=== PATIENT | male | born 1960 | race Hispanic/Latino ===

== ENCOUNTER 2019-08-22 06:42 | Inpatient (IN) | payer OTHER ==
[2019-08-22] MEDS ORDERED: NA CHLORIDE 0.9% 1,000 ML ONE (07:24)
[2019-08-22 07:33] LABS: Absolute Lymphocytes (CBC) 0.6 K/uL (0.7-4.9); Basophils % 0.4 % (0-1.3); Hematocrit 40.2 % (39.6-49.0); Lymphocytes % 8.4 % (15.3-44.8); MPV 8.7 fL (7.6-11.3); Protime INR 1.06; RBC Red Blood Cell Count 4.57 M/uL (4.33-5.43)
[2019-08-22 07:51] LABS: Albumin 3.1 g/dL (3.4-5.0); Bilirubin Direct 0.3 mg/dL (0-0.2); Bilirubin Total 1.1 mg/dL (0.2-1.0); Magnesium 2.6 mg/dL (1.8-2.4); Potassium 3.7 mmol/L (3.5-5.1); Protein, Total 6.8 g/dL (6.4-8.2); Troponin (Emerg Dept Use Only) 0.27 ng/mL (0.0-0.045)
--- NOTE | 2019-08-22 07:53 | RAD REPORT ---
EXAM DESCRIPTION: CT - Head Brain Wo Cont - 08/22/2019 7:34 am CLINICAL HISTORY: Headache status post fall. Head injury COMPARISON: 2014 TECHNIQUE: Computed axial tomography of the head was obtained. IV contrast was not requested. All CT scans are performed using dose optimization technique as appropriate and may include automated exposure control or mA/KV adjustment according to patient size. FINDINGS: An intracranial bleed is not seen . The ventricles are normal in caliber. No extra-axial fluid collection is noted. Fluid within the sinuses/ mastoids is not seen. IMPRESSION: No acute intracranial abnormality is seen. If patient's symptoms persist MRI of the bra in would be recommended.
--- NOTE | 2019-08-22 08:03 | RAD REPORT ---
EXAM DESCRIPTION: RAD - Hip Left 2 View - 08/22/2019 7:57 am CLINICAL HISTORY: Left hip pain status post injury FINDINGS: No fracture or dislocation is seen. The bones are osteoporotic. Mild osteoarthritis involves left hip If patient continues to have symptoms to suggest an occult fracture then MRI would be recommended
--- NOTE | 2019-08-22 08:03 | RAD REPORT ---
EXAM DESCRIPTION: Diego Single View08/22/2019 7:57 am CLINICAL HISTORY: Chest pain COMPARISON: 2014 FINDINGS: The lungs appear clear of acute infiltrate. The heart is normal size. Patient is in a poo r degree of inspiration IMPRESSION: No acute abnormalities displayed
--- NOTE | 2019-08-22 08:09 | RAD REPORT ---
EXAM DESCRIPTION: RAD - Knee Left 3 View - 08/22/2019 8:00 am CLINICAL HISTORY: Left knee pain status post injury FINDINGS: No acute fracture or dislocation is seen. Small bony density superior to the patella proba randy is chronic A large joint effusion is not seen Osteoporosis Marked osteoarthritis involves the medial compartment If the patient continues have symptoms to suggest an occult fracture, ligamentous or meniscal injury MRI would be recommended
--- NOTE | 2019-08-22 08:31 | ER ---
Nurse's Notes [facility] Name: Valerio Haney Sr Age: 59 yrs Sex: Male : 1960 Arrival Date: 08/22/2019 Time: 06:41 Bed 6 Private MD: Diagnosis: Rhabdomyolysis;Fall from bed;Pain in left hip;Pain in left knee Presentation: 08/21 06:41 Chief complaint: EMS states: pt called for having pain after a fall this morning, also sg reports having high blood sugar but not being compliant with his diabetes medication. Care prior to arrival: Glucose check: 386. Mechanism of Injury: Fall from standing position. Trauma event details: Injury occurred in the [facility], Injury occurred: at home. Injury occurred: August 22, 2019. 06:41 Acuity: DEWAYNE 3 06:41 Method Of Arrival: EMS: [facility] 06:48 Chief complaint: EMS states: "The pt reported falling out of bed this morning. he has jd3 been reporting generalized weakness over the last 3 days. he is reporting left leg and left hip pain. he denies any injury to his head.". Coronavirus screen: Proceed with normal triage. Ebola Screen: Patient negative for fever greater than or equal to 101.5 degrees Fahrenheit, and additional compatible Ebola Virus Disease symptoms. Initial Sepsis Screen: Does the patient meet any 2 criteria? No. Patient's initial sepsis screen is negative. Does the patient have a suspected source of infection? No. Patient's initial sepsis screen is negative. Risk Assessment: Do you want to hurt yourself or someone else? Patient reports no desire to harm self or others. Onset of symptoms was August 22, 2019. Triage Assessment: 07:00 General: Appears in no apparent distress. uncomfortable, Behavior is cooperative, bp appropriate for age, anxious. Pain: Complains of pain in left hip. EENT: No deficits noted. Neuro: Level of Consciousness is awake, alert, obeys commands, Oriented to person, place, time, situation, Appropriate for age. Cardiovascular: Rhythm is sinus rhythm. Respiratory: No deficits noted. GI: No signs and/or symptoms were reported involving the gastrointestinal system. : No signs and/or symptoms were reported regarding the genitourinary system. Derm: No signs and/or symptoms reported regarding the dermatologic system. Musculoskeletal: Reports pain in left hip. Trauma Activation: Not Applicable Physician: ED Physician; Name: ; Notified At: ; Arrived At: Physician: General Surgeon; Name: ; Notified At: ; Arrived At: Physician: Radiology; Name: ; Notified At: ; Arrived At: Physician: Respiratory; Name: ; Notified At: ; Arrived At: Physician: Lab; Name: ; Notified At: ; Arrived At: Historical: - Allergies: 06:47 No Known Allergies; sg - Home Meds: 06:47 divalproex oral oral [Active]; [place] Carbonate Oral [Active]; Primidone Oral sg [Active]; Risperdal Oral [Active]; doxepin Oral [Active]; - PMHx: 06:50 Diabetes - NIDDM; jd3 - PSHx: 06:47 None; sg - Immunization history:: Adult Immunizations up to date. - Immunization history: Last tetanus immunization: unknown. - Social history:: Smoking status: Patient denies any tobacco usage or history of. Screenin:51 Abuse screen: Denies threats or abuse. Nutritional screening: No deficits noted. jd3 Tuberculosis screening: No symptoms or risk factors identified. Fall Risk Fall in past 12 months (25 points). Gait- Weak (10 pts.). Mental Status- Oriented to own ability (0 pts). Total Barreto Fall Scale indicates Low Risk Score (25-44 pts). Fall prevention measures have been instituted. Side Rails Up X 2 Placed close to Nursing Station Frequent Obs/Assesments occuring. Assessment: 06:52 General: Appears in no apparent distress. uncomfortable, Behavior is calm, cooperative, jd3 appropriate for age. Pain: Complains of pain in left hip and left leg Quality of pain is described as aching, tender. Neuro: Level of Consciousness is awake, alert, obeys commands, Oriented to person, place, time, situation. Cardiovascular: Denies chest pain, Capillary refill < 3 seconds Patient's skin is warm and dry. Respiratory: Airway is patent Respiratory effort is even, unlabored, Respiratory pattern is regular, symmetrical, Denies cough, shortness of breath. GI: No signs and/or symptoms were reported involving the gastrointestinal system. Patient currently denies constipation, diarrhea, nausea, vomiting. : No signs and/or symptoms were reported regarding the genitourinary system. EENT: No signs and/or symptoms were reported regarding the EENT system. Derm: Skin is intact, Skin is dry, Skin is normal, Skin temperature is warm. Musculoskeletal: Circulation, motion, and sensation intact. Range of motion: limited in left leg. 07:20 General: Appears uncomfortable, Behavior is calm, cooperative. Pain: Complains of pain rb1 in left leg and left hip and left knee Quality of pain is described as aching. Neuro: Level of Consciousness is awake, alert, obeys commands, Oriented to person, place, time, situation. Cardiovascular: Capillary refill < 3 seconds. Respiratory: Airway is patent Respiratory effort is even, unlabored, Respiratory pattern is regular, symmetrical. Derm: Skin is pink, warm \\T\\ dry. A scabbed abrasion noted to the left knee, pt. reports it happened yesterday. Musculoskeletal: Range of motion: limited in left leg Swelling present in right foot and left foot. 07:27 Reassessment: Pt. went to X-ray. rb1 07:58 Reassessment: PT RETURNED FROM RAD. bp Vital Signs: 06:50 BP 139 / 82; Pulse 85; Resp 17 S; Temp 97.4(TE); Pulse Ox 100% on R/A; Weight 90.72 kg jd3 (R); Height 5 ft. 4 in. (162.56 cm) (R); Pain 9/10; 07:58 BP 115 / 64; Pulse 87; Resp 14; Pulse Ox 98% ; bp 06:50 Body Mass Index 34.33 (90.72 kg, 162.56 cm) jd3 ED Course: 06:41 Patient arrived in ED. sg 06:42 Salazar Rowland NP is PHCP. pm1 06:42 Vianca Kulkarni MD is Attending Physician. pm1 06:43 Triage completed. sg 06:47 Arm band placed on. sg 06:52 Patient has correct armband on for positive identification. Placed in gown. Bed in low jd3 position. Call light in reach. Side rails up X2. Pulse ox on. NIBP on. 07:05 Inserted saline lock: 20 gauge in right wrist, using aseptic technique. Blood collected.ds4 07:07 EKG done, by ED staff, reviewed by Salazar Rowland NP. jd3 07:12 Basic Metabolic Panel Sent. ds4 07:12 NT PRO-BNP Sent. ds4 07:12 CBC with Diff Sent. ds4 07:12 Troponin (emerg Dept Use Only) Sent. ds4 07:12 PT-INR Sent. ds4 07:12 Magnesium Sent. ds4 07:12 LFT's Sent. ds4 07:12 CK Sent. ds4 07:20 NEURO CHECK AND INTERPRET [place]URK[place] SPEAKING ONLY. [facility] 07:22 Georges Arrington, RN is Primary Nurse. bp 07:34 CT Head Brain wo Cont In Process Unspecified. EDMS 07:57 Hip Left 2 View XRAY In Process Unspecified. EDMS 07:57 XRAY Chest (1 view) In Process Unspecified. EDMS 08:00 Knee Left 3 View XRAY In Process Unspecified. EDMS 08:30 Gavin Jacobson MD is Hospitalizing Provider. pm1 10:19 Patient admitted, IV remains in place. bp Administered Medications: 07:19 Drug: NS 0.9% 1000 ml Route: IV; Rate: 1000 ml; Site: right forearm; rb1 08:46 Follow up: IV Status: Completed infusion; IV Intake: 1000ml bp 08:40 Not Given (Physician Discretion): NS 0.9% 1000 ml IV at 1000 ml once pm1 08:40 CANCELLED (Physician Discretion): NS 0.9% 1000 ml IV at 100 ml/hr once pm1 08:46 Drug: NS 0.9% with KCl 20 mEq/L 1000 ml Route: IV; Rate: 150 ml/hr; Site: right forearm;bp 10:58 Follow up: IV Status: Infusion continued upon admission bp Intake: 08:46 IV: 1000ml; Total: 1000ml. bp Outcome: 08:30 Decision to Hospitalize by Provider. pm1 10:49 Admitted to Med/surg accompanied by tech, family with patient, via stretcher, room 202, bp Report called to TG LERMA 10:49 Condition: stable 10:49 Instructed on the need for admit. 10:58 Patient left the ED. bp Signatures: Dispatcher [employer] EDMS Sukh Link RN RN sg Swanson, Donovan ds4 Lynnette Owens RN RN rb1 Salazar Rowland, HYDRANT SETTER HYDRANT SETTER pm1 Mendy Carroll 5 Glynn Rosenberg RN RN jGeorges Borjas, RN RN bp Corrections: (The following items were deleted from the chart) 06:52 06:51 Fall Risk Ambulatory Aid- None/Bed Rest/Nurse Assist (0 pts). Gait- Normal/Bed jd3 Rest/Wheelchair (0 pts) Mental Status- Oriented to own ability (0 pts). Total Barreto Fall Scale indicates No Risk (0-24 pts). jd3 06:54 06:48 Chief complaint: EMS states: "The pt reported falling out of bed this morning. he jd3 has been reporting generalized weakness over the last 3 days. he is reporting left leg and left hip pain." jd3 07:29 07:20 Musculoskeletal: Range of motion: limited in left leg rb1 rb1
--- NOTE | 2019-08-22 08:31 | EDPHYS ---
Physician Documentation [facility] Name: Valerio Haney Sr Age: 59 yrs Sex: Male : 1960 Arrival Date: 08/22/2019 Time: 06:41 Bed 6 Private MD: ED Physician Vianca Kulkarni HPI: 08/21 07:35 This 59 yrs old Male presents to ER via EMS with complaints of Fall Injury, pm1 High Blood Sugar. 07:35 Details of fall: The patient fell from a height, Bed, and struck. Onset: The pm1 symptoms/episode began/occurred last night. Associated injuries: The patient sustained left hip and left knee. The patient has not experienced similar symptoms in the past. The patient has not recently seen a physician, and does not have an established primary care provider. Patient reports generalized weakness and dizziness for the past 3 days. He fell out of bed last night resulting in pain to left knee and left hip. He was not able to get up and was on the floor. His inability to get up was due to the left hip pain. No headache, LOC, head injury, or neck pain. No chest pain or shortness of breath . 08:32 Patient does not take medications for DM. Does not take metformin. Does take Ozone pm1 300 mg and Depakote 500 mg. Reports that he last took the medications 2 days ago because he actually fell two days ago and has not been able to get up. Historical: - Allergies: 06:47 No Known Allergies; sg - Home Meds: 06:47 divalproex oral oral [Active]; [place] Carbonate Oral [Active]; Primidone Oral sg [Active]; Risperdal Oral [Active]; doxepin Oral [Active]; - PMHx: 06:50 Diabetes - NIDDM; jd3 - PSHx: 06:47 None; sg - Immunization history:: Adult Immunizations up to date. - Immunization history: Last tetanus immunization: unknown. - Social history:: Smoking status: Patient denies any tobacco usage or history of. ROS: 07:35 Constitutional: Negative for fever, chills, and weight loss, Eyes: Negative for injury, pm1 pain, redness, and discharge, ENT: Negative for injury, pain, and discharge, Neck: Negative for injury, pain, and swelling, Cardiovascular: Negative for chest pain, palpitations, and edema, Respiratory: Negative for shortness of breath, cough, wheezing, and pleuritic chest pain, Abdomen/GI: Negative for abdominal pain, nausea, vomiting, diarrhea, and constipation, Back: Negative for injury and pain, Skin: Negative for injury, rash, and discoloration. 07:35 MS/extremity: Positive for pain, of the left knee and left hip. 07:35 Neuro: Positive for dizziness, Generalized weakness. Exam: 07:35 Head/Face: Normocephalic, atraumatic. Eyes: Pupils equal round and reactive to light, pm1 extra-ocular motions intact. Lids and lashes normal. Conjunctiva and sclera are non-icteric and not injected. Cornea within normal limits. Periorbital areas with no swelling, redness, or edema. ENT: Nares patent. No nasal discharge, no septal abnormalities noted. Tympanic membranes are normal and external auditory canals are clear. Oropharynx with no redness, swelling, or masses, exudates, or evidence of obstruction, uvula midline. Mucous membranes moist. Neck: Trachea midline, no thyromegaly or masses palpated, and no cervical lymphadenopathy. Supple, full range of motion without nuchal rigidity, or vertebral point tenderness. No Meningismus. Chest/axilla: Normal chest wall appearance and motion. Nontender with no deformity. No lesions are appreciated. 07:35 Back: No spinal tenderness. No costovertebral tenderness. Full range of motion. 07:35 Constitutional: The patient appears in no acute distress, alert, awake, comfortable, non-diaphoretic, non-toxic, well developed, well hydrated, smells of urine, unkempt, urine soaked pants 07:35 Cardiovascular: Exam negative for acute changes, Rate: normal, Rhythm: regular, Pulses: no pulse deficits are appreciated. 07:35 Respiratory: Exam negative for acute changes, respiratory distress, shortness of breath. 07:35 Abdomen/GI: Inspection: abdomen appears normal, Palpation: abdomen is soft and non-tender, in all quadrants, mass, is not appreciated. 07:35 Musculoskeletal/extremity: Extremities: grossly normal except: noted in the left knee and left hip: tenderness, Circulation is intact in all extremities. Sensation intact. 07:35 Skin: Appearance: normal except for affected area, injury, abrasion(s), small abrasion noted, of the right knee and left knee. 07:35 Neuro: Orientation: is normal, Mentation: is normal, Cerebellar function: normal finger to nose testing, Sensation: is normal, no obvious gross deficits, Abnormal movements: intention tremor, located in the right arm and left arm. Vital Signs: 06:50 BP 139 / 82; Pulse 85; Resp 17 S; Temp 97.4(TE); Pulse Ox 100% on R/A; Weight 90.72 kg jd3 (R); Height 5 ft. 4 in. (162.56 cm) (R); Pain 9/10; 07:58 BP 115 / 64; Pulse 87; Resp 14; Pulse Ox 98% ; bp 06:50 Body Mass Index 34.33 (90.72 kg, 162.56 cm) jd3 MDM: 06:42 Patient medically screened. pm1 07:44 Data reviewed: vital signs. Data interpreted: Pulse oximetry: on room air is 100 %. pm1 Interpretation: normal. 08:29 Counseling: I had a detailed discussion with the patient and/or guardian regarding: the pm1 historical points, exam findings, and any diagnostic results supporting the discharge/admit diagnosis, lab results, the need for further work-up and treatment in the hospital. 08:41 Physician consultation: Gavin Jacobson MD was called at 08:41, was contacted at 08:41, pm1 regarding admission, patient's condition, and will see patient would like medications started, Patient's V/S so no additional bolus of NS required. Give the patient NS with 20 meq of potassium at 150 ml/hr . 08/21 06:52 Order name: NT PRO-BNP; Complete Time: 08:10 pm08/21 06:52 Order name: Basic Metabolic Panel; Complete Time: 08:10 pm08/21 06:52 Order name: CBC with Diff; Complete Time: 07:47 pm1 08/21 06:52 Order name: LFT's; Complete Time: 08:10 pm1 08/21 06:52 Order name: Magnesium; Complete Time: 08:10 pm1 08/21 06:52 Order name: PT-INR; Complete Time: 07:47 pm1 08/21 06:52 Order name: Troponin (emerg Dept Use Only); Complete Time: 08:10 pm1 08/21 06:59 Order name: Glucose, Ancillary Testing; Complete Time: 07:03 EDMS 08/21 07:03 Order name: CK; Complete Time: 08:20 pm08/21 08:28 Order name: Ozone; Complete Time: 09:23 pm1 08/21 08:31 Order name: Valproic Acid (depakote); Complete Time: 09:23 pm1 08/21 08:46 Order name: ETOH Level; Complete Time: 09:23 bp 08/21 10:00 Order name: Thyroid Stimulating Hormone EDMS 08/21 10:00 Order name: UR CREAT EDMS 08/21 06:52 Order name: Hip Left 2 View XRAY; Complete Time: 08:10 pm1 08/21 06:52 Order name: XRAY Chest (1 view); Complete Time: 08:10 pm1 08/21 07:08 Order name: CT Head Brain wo Cont; Complete Time: 08:00 pm1 08/21 07:14 Order name: Knee Left 3 View XRAY; Complete Time: 08:10 pm1 08/21 10:00 Order name: UR SODIUM EDMS 08/21 10:00 Order name: Comprehensive Metabolic Panel EDMS 08/21 10:00 Order name: Comprehensive Metabolic Panel EDMS 08/21 10:00 Order name: Creatine Phosphokinase EDMS 08/21 10:00 Order name: Creatine Phosphokinase EDMS 08/21 10:00 Order name: Creatine Phosphokinase EDMS 08/21 10:00 Order name: Creatine Phosphokinase EDMS 08/21 10:01 Order name: CORONAVIRUS EDMS 08/21 06:52 Order name: EKG; Complete Time: 06:53 pm08/21 06:52 Order name: Cardiac monitoring; Complete Time: 07:06 pm08/21 06:52 Order name: EKG - Nurse/Tech; Complete Time: 07:06 pm08/21 06:52 Order name: IV Saline Lock; Complete Time: 07:06 pm08/21 06:52 Order name: Labs collected and sent; Complete Time: 07:06 pm08/21 06:52 Order name: O2 Per Protocol; Complete Time: 07:06 pm08/21 06:52 Order name: O2 Sat Monitoring; Complete Time: 07:06 pm08/21 10:00 Order name: CONS Physician Consult EDMS 08/21 10:00 Order name: Physical Therapy Consult EDUT 08/21 10:00 Order name: CONS Pharmacy Consult EDUT 08/21 10:00 Order name: Consistent Carb (ADA) [address] EDUT Administered Medications: 07:19 Drug: NS 0.9% 1000 ml Route: IV; Rate: 1000 ml; Site: right forearm; rb1 08:46 Follow up: IV Status: Completed infusion; IV Intake: 1000ml bp 08:40 Not Given (Physician Discretion): NS 0.9% 1000 ml IV at 1000 ml once pm1 08:40 CANCELLED (Physician Discretion): NS 0.9% 1000 ml IV at 100 ml/hr once pm1 08:46 Drug: NS 0.9% with KCl 20 mEq/L 1000 ml Route: IV; Rate: 150 ml/hr; Site: right forearm;bp 10:58 Follow up: IV Status: Infusion continued upon admission bp Disposition: 20:20 Co-signature as Attending Physician, Vianca Kulkarni MD. ma2 Disposition: 08/22/19 08:30 Hospitalization ordered by Gavin Jacobson for Inpatient Admission. Preliminary diagnosis are Rhabdomyolysis, Fall from bed, Pain in left hip, Pain in left knee. - Bed requested for Telemetry/MedSurg (Inpatient). - Status is Inpatient Admission. bp - Condition is Stable. - Problem is new. - Symptoms have improved. Signatures: Dispatcher [employer] [facility] Sukh Link RN RN sg Barber, Rebecca, RN RN rb1 Salazar Rowland, LIN COUNTER ATTENDANT pm1 Glynn Rosenberg RN RN jd3 Aguilar, Jose, RN RN ja1 Peltier, Brian, RN RN bp Vianca Kulkarni MD MD ma2 Corrections: (The following items were deleted from the chart) 08:40 08:30 NS 0.9% 1000 ml IV at 100 ml/hr once ordered. pm1 pm1 08:40 08:40 NS 0.9% 1000 ml IV at 100 ml/hr once ordered. pm1 pm1 10:16 08:30 Hospitalization Ordered by Gavin Jacobson MD for Inpatient Admission. Preliminary ja1 diagnosis is Rhabdomyolysis; Fall from bed; Pain in left hip; Pain in left knee. Bed requested for Telemetry/MedSurg (Inpatient). Status is Inpatient Admission. Condition is Stable. Problem is new. Symptoms have improved. pm1 10:58 10:16 08/22/2019 08:30 Hospitalization Ordered by Gavin Jacobson MD for Inpatient bp Admission. Preliminary diagnosis is Rhabdomyolysis; Fall from bed; Pain in left hip; Pain in left knee. Bed requested for Telemetry/MedSurg (Inpatient). Status is Inpatient Admission. Condition is Stable. Problem is new. Symptoms have improved. ja1
[2019-08-22] MEDS ORDERED: NA CHLORIDE 0.9% 0 ML ONE (08:47)
[2019-08-22] MEDS ORDERED: NS KCL 20MEQ 1,000 ML IV ONE (08:51)
[2019-08-22] MEDS ORDERED: ONDANSETRON 4 MG/2 ML VIAL IV PRN (09:54)
[2019-08-22] MEDS ORDERED: HYDRALAZINE HCL 20 MG/ML VIAL IV PRN ×2 (09:56→12:20)
[2019-08-22] MEDS: MORPHINE 2 MG/ML SYR IV PRN (11:31)
[2019-08-22] MEDS ORDERED: GLUCAGON 1 MG/VIAL IM PRN ×2 (12:20→12:56)
[2019-08-22] MEDS ORDERED: ALBUTEROL 2.5 MG/3 ML NEB SOL NEB PRN (12:20)
[2019-08-22] MEDS ORDERED: D50W 25 GM/50 ML SYRINGE/VIAL IV PRN ×2 (12:20→12:56)
--- NOTE | 2019-08-22 12:28 | P.HP ---
Certification for Inpatient Patient admitted to: Inpatient With expected LOS: >2 Midnights Patient will require the following post-hospital care: None Practitioner: I am a practitioner with admitting privileges, knowledge of patient current condition, hospital course, and medical plan of care. Services: Services provided to patient in accordance with Admission requirements found in Title 42 Section 412.3 of the Code of Federal Regulations Patient History Date of Service: 08/22/19 Reason for admission: Fall and weakness History of Present Illness: 59-year-old speaking male with past medical history of HTN, DM-diet controlled since the last 4 years, schizophrenia on lithium since over 7 years admitted after having a fall at home 2 days ago. Patient lives with his son but states he has fallen while getting up from the the bed. He denies any loss of consciousness. He states he was not able to get up due to right-sided pain more around the hip area. He was on the floor for 2 days as he was unable to reach his phone. He was finally able to get hisphone and called the sister who got EMS to getting him to the hospital. He denies any urine or fecal incontinence. He states he has be unable to void since the last 2 days. He admits to recent history of cough with throat itching since last 1 week but denies any nausea or vomiting. He denies any recent pain medication. He denies any recent medication changes. He states he was admitted 6 months ago at [facility] but unsure for what reason. Sister, who regularly patient to appointments follow-up is at the bedside helping with history. Prior to onset of symptoms patient states he was outside his house gardening . He denies any fever but admit to increase fluid intake creatinine Allergies No Known Drug Allergies Allergy (Verified 06/24/14 14:17) Unknown Home Medications: Divalproex Sodium [Divalproex Sodium ER] 500 mg PO BEDTIME 06/24/14 Doxepin HCl [Sinequan] 3 tab PO BEDTIME 06/24/14 [place] Carbonate [Lithotabs *] 300 mg PO BEDTIME 06/24/14 Risperidone [Risperdal] 2 mg PO BEDTIME 06/24/14 allopurinoL [Zyloprim*] 300 mg PO DAILY 06/24/14 Primidone [Mysoline *] 50 mg PO DAILY #30 tab 06/27/14 levoFLOXacin [Levaquin*] 500 mg PO DAILY #10 tab 06/27/14 - Past Medical/Surgical History Has patient received pneumonia vaccine in the past: No Diabetic: Yes -: DM -: SCHIZOPHRENIA Past Surgical History: Patient denies surgical history - Social History Smoking Status: Never smoker Alcohol use: No CD- Drugs: No Caffeine use: Yes Review of Systems 10-point ROS is otherwise unremarkable General: Weakness, Malaise Eyes: Unremarkable Respiratory: Unremarkable Cardiovascular: Unremarkable Gastrointestinal: Unremarkable Genitourinary: Retention Musculoskeletal: Back Pain, Leg Pain Integumentary: Unremarkable Neurological: Weakness, Unremarkable Physical Examination - Vital Signs Temperature: 97.4 F Blood Pressure: 115/64 Pulse: 87 Respirations: 18 Pulse Ox (%): 97 - Physical Exam General: Alert, In no apparent distress, Oriented x3, Cooperative HEENT: Atraumatic, Normocephalic Neck: Supple, No Thyromegaly, JVD distended Respiratory: Normal air movement, Diminished Cardiovascular: Regular rate/rhythm, Normal S1 S2, Edema Gastrointestinal: Normal bowel sounds, Soft and benign, Non-distended, No masses, No rebound Musculoskeletal: No clubbing, Swelling Integumentary: No rashes, No breakdown Neurological: Normal speech, Normal strength at 5/5 x4 extr - Studies Laboratory Data (last 24 hrs) 08/22/19 07:05: PT 12.5, INR 1.06 08/22/19 07:05: WBC 7.7, Hgb 14.2, Hct 40.2, Plt Count 110 L 08/22/19 07:05: Sodium 142, Potassium 3.7, BUN 38 H, Creatinine 2.72 H, Glucose 305 H, Magnesium 2.6 H, Total Bilirubin 1.1 H, AST 501 H*, ALT 83 H, Alkaline Phosphatase 61 Assessment and Plan - Problems (Diagnosis) (1) Rhabdomyolysis Current Visit: Yes Status: Acute (2) ARF (acute renal failure) with tubular necrosis Current Visit: Yes Status: Acute (3) Diabetes mellitus type II, uncontrolled Onset Date: 06/24/14 Current Visit: No Status: Acute (4) Fall Onset Date: 06/24/14 Current Visit: No Status: Acute (5) Urinary retention Onset Date: 06/24/14 Current Visit: No Status: Acute (6) Weakness Onset Date: 06/24/14 Current Visit: No Status: Acute - Advance Directives Does patient have a Living Will: No Does patient have a Durable POA for Healthcare: No Physician Review: Patient Assessed, Agree with Above Assessment and Plan Physician Review Additional Text: # Acute Rhabdomyolysis - due to fall - will start LR - will do bumex given large fluid overload - Nephrology consult - daily CK - replete k and mg prn -obtain TSH -obtain covid testing since recent reported Covid 19 rhabdomyolysis # Fall- obtain PT eval - may be due to noted tremors from anti-psychotic meds # DM -with hyperglycemia -start Levemir 10 unit bid -accuchecks and ISSS # HTN-IV hydralazine prn # Schizophrenia - restart home regime , low lithium noted DVT prop - sc heparin Dispo -possible hospital stay for > 48 hrs
[2019-08-22] MEDS: BUMETANIDE 1 MG/4 ML VIAL IV SCH ×2 (13:07→21:10)
[2019-08-22] MEDS: INSULIN -REGULAR HUMAN 50 UNIT/0.5 ML ML SQ SCH ×3 (14:08→21:10)
[2019-08-22] MEDS: PANTOPRAZOLE 40MG TABLET PO SCH (16:47)
[2019-08-22] MEDS: Ringers Lactate 1,000 ML IV SCH ×2 (16:48→21:59)
[2019-08-22] MEDS: HEPARIN 5000 UNIT/ML 1 ML VIAL SQ SCH (21:10)
[2019-08-22] MEDS: INSULIN GLARGINE 100 UNITS/ML SQ SCH (21:11)
--- NOTE | 2019-08-22 23:22 | P.CNS ---
Date of Consult: 08/22/19 Chief Complaint: Fall and weakness History of Present Illness: Pt is a 59 y/o female with past medical hx of htn, schizophrenia, DM, presenting s/p fall. Pt stated he fell while trying to maneuver and remained on the ground for 2 days. He states his son found him laying on the ground and brought him to the ER. At this time, pt is complianing of thigh pain. Denies any fevers or chills, nausea or vomiting. NO recent recreational drug use, or recent illnesses. Work up in the ED revealed dx of rhabdomylysis and JULIANNA. Renal has been consulted for continued management of JULIANNA. Allergies No Known Drug Allergies Allergy (Verified 06/24/14 14:17) Unknown Home Medications: Divalproex Sodium [Depakote ER] 1 tab PO DAILY 08/22/19 Divalproex Sodium [Depakote ER] 2 tab PO BEDTIME 08/22/19 [place] Carbonate [Lithotabs *] 1 cap PO BEDTIME 08/22/19 risperiDONE [Risperdal] 2 tab PO BEDTIME 08/22/19 - Past Medical/Surgical History Diabetic: Yes -: DM -: SCHIZOPHRENIA - Social History Smoking Status: Current every day smoker Alcohol use: No CD- Drugs: No Caffeine use: Yes Place of Residence: Home Review of Systems General: Weakness, Unremarkable Eyes: Unremarkable ENT: Unremarkable Respiratory: Shortness of Breath Cardiovascular: Edema Gastrointestinal: Unremarkable Genitourinary: Unremarkable Musculoskeletal: Unremarkable Integumentary: Unremarkable Neurological: Seizures Lymphatics: Unremarkable Physical Examination Temp Pulse Resp BP Pulse Ox 97.0 F 79 16 144/70 H 97 08/22/19 20:00 08/22/19 21:10 08/22/19 20:00 08/22/19 21:10 08/22/19 20:00 General: Alert, Oriented x3 HEENT: Atraumatic, Normocephalic, PERRLA Neck: Supple, No Thyromegaly, Without JVD or thyroid abnormality Respiratory: Clear to auscultation bilaterally Cardiovascular: Edema Capillary refill: <2 Seconds Gastrointestinal: Normal bowel sounds, Soft and benign, Non-distended Musculoskeletal: Tenderness Integumentary: No rashes, No significant lesion, No cyanosis Neurological: Normal strength at 5/5 x4 extr, Other (tremors noted) Laboratory Data (last 24 hrs) 08/22/19 07:05: PT 12.5, INR 1.06 08/22/19 07:05: WBC 7.7, Hgb 14.2, Hct 40.2, Plt Count 110 L 08/22/19 07:05: Sodium 142, Potassium 3.7, BUN 38 H, Creatinine 2.72 H, Glucose 305 H, Magnesium 2.6 H, Total Bilirubin 1.1 H, AST 501 H*, ALT 83 H, Alkaline Phosphatase 61 - Problems (1) ARF (acute renal failure) with tubular necrosis Current Visit: Yes Status: Acute (2) Rhabdomyolysis Current Visit: Yes Status: Acute (3) Diabetes mellitus type II, uncontrolled Onset Date: 06/24/14 Current Visit: No Status: Acute (4) Fall Onset Date: 06/24/14 Current Visit: No Status: Acute Conclusions/Impression: Plan Continue IVF, and bumex. if potassium increasing will need to switch IVF to sodium bicarbonate or normal saline Will check phos tommorrow as well. No indication for HD at this time. Strict i/o Avoid nephrotoxins including enzo/arb, nsaids, contrast studies, fleece enemas Renally dose all medications If creatinine unimproved tommorrow morning, will obtain renal ultrasound. Thank you for this interesting consult will continue to follow.
[2019-08-23 06:15] LABS: Absolute Lymphocytes (CBC) 1.3 K/uL (0.7-4.9); Hematocrit 40.4 % (39.6-49.0); Lymphocytes % 17.4 % (15.3-44.8); MPV 8.6 fL (7.6-11.3); RBC Red Blood Cell Count 4.56 M/uL (4.33-5.43)
[2019-08-23 07:03] LABS: ALT/SGPT 99 U/L (12-78); Albumin 2.6 g/dL (3.4-5.0); Alkaline Phosphatase 54 U/L (45-117); BUN Blood Urea Nitrogen 35 mg/dL (7-18); Bicarbonate 23 mmol/L (21-32); Bilirubin Total 0.8 mg/dL (0.2-1.0); Glucose Level 174 mg/dL (74-106); Potassium 3.9 mmol/L (3.5-5.1); Protein, Total 6.3 g/dL (6.4-8.2); Sodium Level 146 mmol/L (136-145)
[2019-08-23 07:05] LABS: AST/SGOT 697 U/L (15-37); Creatine Phosphokinase > 14000 U/L (39-308)
[2019-08-23] MEDS: INSULIN -REGULAR HUMAN 50 UNIT/0.5 ML ML SQ SCH ×4 (07:30→20:45)
[2019-08-23 07:48] LABS: Blood Morphology Comment NOT SEEN (NOT SEEN); Platelet Estimate DECR; Urine White Blood Cell Casts OK
[2019-08-23] MEDS: CEFTRIAXONE/SWI 1gm 1 GM/10 ML SYR IVP SCH (08:52)
[2019-08-23] MEDS: NICOTINE 21 MG/PAT TD SCH (08:53)
[2019-08-23] MEDS: HEPARIN 5000 UNIT/ML 1 ML VIAL SQ SCH ×2 (08:53→20:37)
[2019-08-23] MEDS: BUMETANIDE 1 MG/4 ML VIAL IV SCH ×2 (08:53→20:38)
[2019-08-23] MEDS: INSULIN GLARGINE 100 UNITS/ML SQ SCH ×2 (08:54→20:46)
[2019-08-23] MEDS: MORPHINE 2 MG/ML SYR IV PRN (08:57)
[2019-08-23] MEDS: PANTOPRAZOLE 40MG TABLET PO SCH ×2 (08:57→16:27)
--- NOTE | 2019-08-23 12:03 | P.PN ---
Subjective Date of Service: 08/23/19 Chief Complaint: Fall and weakness Subjective: No new changes, Improving <Hammad Sellers - Last Filed: 08/23/19 11:56> Date of Service: 08/23/19 <Tucker Quintana - Last Filed: 08/23/19 18:18> Review of Systems General: Unremarkable Eyes: Unremarkable ENT: Unremarkable Respiratory: Unremarkable Cardiovascular: Unremarkable Gastrointestinal: Unremarkable Genitourinary: As per HPI Musculoskeletal: As per HPI Integumentary: Other (Abrasion to left knee) Neurological: Unremarkable Lymphatics: Unremarkable <Hammad Sellers - Last Filed: 08/23/19 11:56> Physical Examination - Vital Signs Temperature: 97.8 F Blood Pressure: 135/70 Pulse: 89 Respirations: 18 Pulse Ox (%): 96 - Physical Exam General: Alert, In no apparent distress, Oriented x3 HEENT: Atraumatic, Normocephalic Neck: Supple Respiratory: Clear to auscultation bilaterally, Normal air movement Cardiovascular: No edema, Regular rate/rhythm, Normal S1 S2 Capillary refill: <2 Seconds Gastrointestinal: Normal bowel sounds Musculoskeletal: No erythema, No warmth Integumentary: No significant lesion Neurological: Normal speech, Normal tone, Sensation intact <Hammad Sellers - Last Filed: 08/23/19 11:56> Assessment & Plan Discharge Plan: Home Plan to discharge in: 48 Hours Physician Review: Patient Assessed, Agree with Above Assessment and Plan Physician Review Additional Text: Assessment Acute renal failure with tubular necrosis secondary to rhabdomyolysis Elevated aminotransferase levels Mechanical fall Diabetes mellitus type 2, uncontrolled Hypertension Schizophrenia Left knee abrasion and effusion Plan Acute renal failure with tubular necrosis secondary to rhabdomyolysis: Nephrology has been consulted on this case, continue with nephrology recommendations. Will continue with IV fluids and Lasix. Will assess patient's phosphorus level tomorrow. Will continue with strict intake and output. Appreciate further input from nephrology. Elevated aminotransferase levels: Will obtain hepatitis panel and HIV testing, also half ordered ultrasound. Will follow up on these test. Will recheck labs tomorrow. Mechanical fall: Fall precautions in place, patient will continue to work with physical therapy. Patient is amendable [facility]. Diabetes mellitus type 2, uncontrolled: A.c. HS Accu-Cheks and insulin sliding scale therapy have been initiated. Will obtain A1c with morning labs to determine patient's glycemic control. Will adjust patient's home medications as needed. Hypertension: Will obtain and continue patient's home medications, in the mean time patient can be given hydralazine p.r.n.. Schizophrenia: Will obtain and continue patient's home medications Left knee abrasion and effusion: Will have Bactroban apply to affected area and continue to monitor patient's me. Patient also work with physical therapy. Critical Care: No Time Spent Managing Pts Care (In Minutes): 55 <Hammad Sellers - Last Filed: 08/23/19 11:56> Physician Review Additional Text: Agree with plan of care. Case discussed at length with nurse practitioner. Also seen and examined. Continue to work with physical therapy. Continue IV fluids. Will monitor closely. Anticipate discharge in the next 48-72 hr. <Tucker Quintana - Last Filed: 08/23/19 18:18>
[2019-08-23] MEDS: Ringers Lactate 1,000 ML IV SCH (14:27)
--- NOTE | 2019-08-23 14:53 | RAD REPORT ---
EXAM DESCRIPTION: US - Liver Only - 08/23/2019 2:18 pm CLINICAL HISTORY: Elevated aminotrasferase levels COMPARISON: No comparisons TECHNIQUE: Sonographic evaluation of the right upper quadrant was performed as a dedicated liver ult rasound study. FINDINGS: Liver is 16 cm in maximum dimension. No nodularity to the capsule or focal parenchymal les ion. Parenchymal echogenicity is increased somewhat which can be seen with fatty infiltration. No por jacquelyn vein abnormality seen. Spleen is 14 cm with no focal splenic finding. No ascites of the upper abdomen. IMPRESSION: Probable fatty infiltration of a normal size liver. No focal liver lesion.
[2019-08-23] MEDS ORDERED: NACHLORIDE 0.45% 1,000 ML IV SCH ×2 (17:00→18:45)
[2019-08-23] MEDS: NACHLORIDE 0.45% 1,000 ML IV SCH (19:00)
[2019-08-23] MEDS: MUPIROCIN 2% OINT 22GM TUBE TOP SCH (20:36)
--- NOTE | 2019-08-24 00:12 | P.PN ---
Subjective Date of Service: 08/24/19 Chief Complaint: Fall and weakness Subjective: Doing well (Eating and drinking. No further complaints at this time) Review of Systems General: Unremarkable Eyes: Unremarkable Respiratory: Unremarkable Cardiovascular: Edema Gastrointestinal: Unremarkable Physical Examination - Vital Signs Temperature: 98.9 F Blood Pressure: 140/79 Pulse: 108 Respirations: 18 Pulse Ox (%): 94 - Physical Exam General: Alert, In no apparent distress, Oriented x3 HEENT: Atraumatic, Normocephalic, PERRLA Neck: Supple, JVD not distended Respiratory: Clear to auscultation bilaterally, Normal air movement Cardiovascular: Edema Capillary refill: <2 Seconds Gastrointestinal: Normal bowel sounds, No tenderness Integumentary: No rashes Assessment And Plan - Current Problems (Diagnosis) (1) ARF (acute renal failure) with tubular necrosis Current Visit: Yes Status: Acute (2) Rhabdomyolysis Current Visit: Yes Status: Acute (3) Diabetes mellitus type II, uncontrolled Onset Date: 06/24/14 Current Visit: No Status: Acute (4) Fall Onset Date: 06/24/14 Current Visit: No Status: Acute - Plan JULIANNA on 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
[2019-08-24] MEDS: NACHLORIDE 0.45% 1,000 ML IV SCH ×4 (02:27→21:25)
[2019-08-24 04:36] LABS: Absolute Lymphocytes (CBC) 1.1 K/uL (0.7-4.9); Basophils % 0.6 % (0-1.3); Hematocrit 40.4 % (39.6-49.0); Lymphocytes % 13.8 % (15.3-44.8); MPV 8.9 fL (7.6-11.3); RBC Red Blood Cell Count 4.55 M/uL (4.33-5.43)
[2019-08-24 05:35] LABS: Albumin 2.5 g/dL (3.4-5.0); Bilirubin Total 0.7 mg/dL (0.2-1.0); Protein, Total 6.5 g/dL (6.4-8.2)
[2019-08-24] MEDS: INSULIN -REGULAR HUMAN 50 UNIT/0.5 ML ML SQ SCH ×4 (07:30→21:00)
--- NOTE | 2019-08-24 08:20 | RAD REPORT ---
EXAM DESCRIPTION: US - Renal Ultrasound-Complete - 08/24/2019 7:58 am CLINICAL HISTORY: . Acute renal insufficiency COMPARISON: 2012 FINDINGS: The right kidney measures 13 cm with a normal echotexture. The left kidney was not visualized due to technical factors. The patient was unable to turn on inside . Hydronephrosis is not seen. A Durand catheter is present within a collapsed bladder. IMPRESSION: The right kidney coronal is mildly enlarged. This could be secondary to being edematous. No hydronephrosis is seen. Nonvisualization of the left kidney
[2019-08-24] MEDS: CEFTRIAXONE/SWI 1gm 1 GM/10 ML SYR IVP SCH (09:00)
[2019-08-24] MEDS: NICOTINE 21 MG/PAT TD SCH (09:35)
[2019-08-24] MEDS: PANTOPRAZOLE 40MG TABLET PO SCH ×2 (09:36→17:02)
[2019-08-24] MEDS: BUMETANIDE 1 MG/4 ML VIAL IV SCH ×2 (09:36→21:27)
[2019-08-24] MEDS: INSULIN GLARGINE 100 UNITS/ML SQ SCH ×2 (09:36→21:30)
[2019-08-24] MEDS: HEPARIN 5000 UNIT/ML 1 ML VIAL SQ SCH ×2 (09:37→21:27)
[2019-08-24] MEDS: MUPIROCIN 2% OINT 22GM TUBE TOP SCH ×2 (09:38→21:31)
[2019-08-24] MEDS ORDERED: POTASSIUM CL SA 10 MEQ TAB PO ONE (11:08)
--- NOTE | 2019-08-24 15:55 | P.PN ---
Subjective Date of Service: 08/24/19 Chief Complaint: Fall and weakness Subjective: Improving, Working w/ PT Review of Systems General: Unremarkable Eyes: Unremarkable ENT: Unremarkable Respiratory: Unremarkable Cardiovascular: Unremarkable Gastrointestinal: Unremarkable Genitourinary: Unremarkable Musculoskeletal: As per HPI Integumentary: Unremarkable Neurological: Unremarkable Lymphatics: Unremarkable Physical Examination - Vital Signs Temperature: 99.4 F Blood Pressure: 134/76 Pulse: 95 Respirations: 24 Pulse Ox (%): 93 - Physical Exam General: Alert, In no apparent distress, Oriented x3 HEENT: Atraumatic, Normocephalic Neck: Supple Respiratory: Clear to auscultation bilaterally, Normal air movement Cardiovascular: No edema Capillary refill: <2 Seconds Gastrointestinal: Normal bowel sounds, Soft and benign Musculoskeletal: No erythema, No tenderness, No warmth Integumentary: No erythema, No warmth, No cyanosis Neurological: Normal speech, Normal strength at 5/5 x4 extr, Normal tone, Sensation intact Assessment & Plan Plan to discharge in: 48 Hours - Code Status/Comfort Care Code Status Assessed: No (Patient is full code) Physician Review: Patient Assessed, Agree with Above Assessment and Plan Physician Review Additional Text: Assessment Acute renal failure with tubular necrosis secondary to traumatic rhabdomyolysis Elevated aminotransferase levels Mechanical fall Diabetes mellitus type 2, uncontrolled Hypertension Schizophrenia Left knee abrasion and effusion Plan Acute renal failure with tubular necrosis secondary to rhabdomyolysis: Nephrology has been consulted on this case, continue with nephrology recommendations. Will continue with IV fluids. Patient's creatinine increased from yesterday and during morning labs. Nephrology recommended more aggressive workup. Additional lab has been ordered. Will continue to monitor patient's renal function. Appreciate further input from nephrology at this time. Elevated aminotransferase levels: Awaiting results from hepatitis and HIV testing. Liver function is improving. Will continue to monitor closely. Mechanical fall: Fall precautions in place, patient will continue to work with physical therapy. Patient is amendable to potentially being discharged [facility] re[facility]. Diabetes mellitus type 2, uncontrolled: A.c. HS Accu-Cheks and insulin sliding scale therapy have been initiated. Will obtain A1c with morning labs to determine patient's glycemic control. Will adjust patient's home medications as needed. Hypertension: Will obtain and continue patient's home medications, in the mean time patient can be given hydralazine p.r.n.. Schizophrenia: Will obtain and continue patient's home medications Left knee abrasion and effusion: Will have Bactroban applied to affected area and continue to monitor patient's me. Patient also to work with physical therapy. Critical Care: No Time Spent Managing Pts Care (In Minutes): 55
[2019-08-24] MEDS: ACETAMINOPHEN 500 MG TAB PO PRN (17:02)
[2019-08-24] MEDS ORDERED: POTASSIUM 25 MEQ EFFERV TAB PO ONE (19:45)
[2019-08-24] MEDS ORDERED: KCL 20 MEQ/100 mL IVPB 20 MEQ/100 ML BAG IV SCH ×2 (20:00)
[2019-08-25] MEDS ORDERED: POTASSIUM 25 MEQ EFFERV TAB PO ONE (02:37)
[2019-08-25] MEDS: INSULIN -REGULAR HUMAN 50 UNIT/0.5 ML ML SQ SCH ×4 (07:30→21:00)
[2019-08-25] MEDS: NICOTINE 21 MG/PAT TD SCH (08:30)
[2019-08-25] MEDS: PANTOPRAZOLE 40MG TABLET PO SCH ×2 (08:31→16:36)
[2019-08-25] MEDS: BUMETANIDE 1 MG/4 ML VIAL IV SCH ×2 (08:31→21:26)
[2019-08-25] MEDS: HEPARIN 5000 UNIT/ML 1 ML VIAL SQ SCH ×2 (08:32→21:27)
[2019-08-25] MEDS: INSULIN GLARGINE 100 UNITS/ML SQ SCH ×2 (08:33→21:27)
[2019-08-25] MEDS: NACHLORIDE 0.45% 1,000 ML IV SCH ×2 (08:34→18:00)
[2019-08-25] MEDS: MUPIROCIN 2% OINT 22GM TUBE TOP SCH ×2 (08:35→21:00)
[2019-08-25 10:03] LABS: Potassium 3.5 mmol/L (3.5-5.1)
[2019-08-25 18:03] LABS: HIV AG/AB 4TH GEN Non-reactive (Non-reactive)
--- NOTE | 2019-08-25 18:34 | P.PN ---
Subjective Date of Service: 08/25/19 Chief Complaint: Fall and weakness Subjective: Improving, Doing well Physical Examination - Vital Signs Temperature: 98.8 F Blood Pressure: 142/89 Pulse: 106 Respirations: 16 Pulse Ox (%): 91 - Physical Exam General: Alert, Cooperative HEENT: Atraumatic Neck: Supple Respiratory: Clear to auscultation bilaterally, Normal air movement Cardiovascular: Normal pulses, Regular rate/rhythm Gastrointestinal: Normal bowel sounds, Soft and benign, Non-distended Neurological: Normal speech, Normal strength at 5/5 x4 extr, Normal tone, Normal affect - Studies Medications List Reviewed: Yes Assessment & Plan Discharge Plan: Home Plan to discharge in: 48 Hours Physician Review Additional Text: Assessment Acute on chronic renal failure stage II with tubular necrosis secondary to traumatic rhabdomyolysis Elevated aminotransferase levels with noted fatty liver Mechanical fall Diabetes mellitus type 2, uncontrolled Hypertension Schizophrenia Left knee abrasion and effusion Plan Acute on chronic renal failure stage 2 with tubular necrosis secondary to traumatic rhabdomyolysis: Patient continues to improve. Continue with physical therapy. Continue IV fluids. Will adjust medication accordingly. Restart his psychiatric medications that the patient has schizophrenia. Once ambulating well will discontinue Durand catheter. 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 Anticipate improvement over the next 48-72 hr. Continue monitor lab closely. Case discussed with nephrology yesterday. Elevated aminotransferase levels with noted fatty liver: Awaiting results from hepatitis and HIV testing. Liver function is improving. Continue monitor liver function. Liver ultrasound shows fatty liver. Mechanical fall: Fall precautions in place, patient will continue to work with physical therapy. Patient is amendable to potentially being discharged to intermediate facility for further rehab. Diabetes mellitus type 2, uncontrolled: Continue basal insulin. Will adjust accordingly. Hypertension: Continue monitor closely. Will consider medication scheduled if blood pressure remains elevated. Schizophrenia: Continue home medication Left knee abrasion and effusion: Will have Bactroban applied to affected area and continue to monitor patient's me. Patient also to work with physical therapy. Time Spent Managing Pts Care (In Minutes): 55
[2019-08-25] MEDS ORDERED: RISPERIDONE PO SCH (21:00)
[2019-08-25] MEDS: DIVALPROEX ER 250 MG TAB PO SCH (21:00)
[2019-08-25] MEDS: RISPERIDONE 1 MG TABLET PO SCH (21:26)
[2019-08-25] MEDS: LITHIUM CARBONATE 300 MG TAB PO SCH (21:26)
[2019-08-25] MEDS ORDERED: ALBUMIN HUMAN 25% 50 ML IV ONE (21:38)
[2019-08-25 23:12] LABS: Arterial Blood Carboxyhemoglob 1.4 % (0-1.5); Blood Gas Oxyhemoglobin 90.6 % (94-97); Blood O2 Saturation 92.6 % (92-98.5)
[2019-08-26] MEDS: NACHLORIDE 0.45% 1,000 ML IV SCH ×2 (03:52→14:00)
[2019-08-26 04:46] LABS: Absolute Lymphocytes (CBC) 1.5 K/uL (0.7-4.9); Basophils % 0.6 % (0-1.3); Hematocrit 40.9 % (39.6-49.0); RBC Red Blood Cell Count 4.71 M/uL (4.33-5.43)
[2019-08-26 05:24] LABS: Albumin 2.5 g/dL (3.4-5.0); Bilirubin Total 0.7 mg/dL (0.2-1.0); Magnesium 1.9 mg/dL (1.8-2.4); Potassium 3.3 mmol/L (3.5-5.1); Protein, Total 6.4 g/dL (6.4-8.2)
[2019-08-26] MEDS ORDERED: POTASSIUM CL SA 10 MEQ TAB PO ONE (05:31)
[2019-08-26] MEDS: INSULIN -REGULAR HUMAN 50 UNIT/0.5 ML ML SQ SCH ×3 (07:30→16:30)
[2019-08-26] MEDS: PANTOPRAZOLE 40MG TABLET PO SCH ×2 (07:30→16:30)
--- NOTE | 2019-08-26 08:02 | P.CNS ---
Date of Consult: 08/26/19 Reason for Consult: Shortness of breath acute renal failure Chief Complaint: Fall and weakness History of Present Illness: Patient is 59 years of age [place]-speaking only multiple medical problems including diabetes hypertension and schizophrenia admitted with a fall complaining of abdominal distension eating and drinking no diarrhea was found on the floor to recent cough denies any fever patient admitted with acute renal failure and rhabdomyolysis patient has a metabolic acidosis Allergies No Known Drug Allergies Allergy (Verified 06/24/14 14:17) Unknown Home Medications: Divalproex Sodium [Depakote ER] 1 tab PO DAILY 08/22/19 Divalproex Sodium [Depakote ER] 2 tab PO BEDTIME 08/22/19 [place] Carbonate [Lithotabs *] 1 cap PO BEDTIME 08/22/19 risperiDONE [Risperdal] 2 tab PO BEDTIME 08/22/19 - Past Medical/Surgical History Diabetic: Yes -: DM -: SCHIZOPHRENIA - Social History Smoking Status: Current every day smoker Alcohol use: No CD- Drugs: No Caffeine use: Yes Place of Residence: Home Review of Systems is unable to be obtained Physical Examination Temp Pulse Resp BP Pulse Ox 97.9 F 112 H 18 132/82 93 08/26/19 04:00 08/26/19 04:00 08/26/19 04:00 08/26/19 04:00 08/26/19 04:00 General: Alert, Oriented x3 Neck: Supple Respiratory: Clear to auscultation bilaterally Cardiovascular: No edema, Normal S1 S2 Gastrointestinal: No tenderness, No rebound, Distended Musculoskeletal: No clubbing Integumentary: No rashes, No breakdown - Problems (1) Rhabdomyolysis Current Visit: Yes Status: Acute Plan: Patient is 59 years of a [place]-speaking only admitted with acute renal failure rhabdomyolysis were diabetes hypertension hypoxemia for normal CBC fatty liver exclude sepsis urinalysis IV fluids patient's renal function is worse continue with IV fluids CP he is declining function tests normal doubt pulmonary embolism repeat arterial blood gases pulmonary embolism is always a possibility recommend empiric anticoagulation for now until is more stable Qualifiers: Encounter type: initial encounter
[2019-08-26] MEDS: INSULIN GLARGINE 100 UNITS/ML SQ SCH (08:38)
[2019-08-26] MEDS: NICOTINE 21 MG/PAT TD SCH (08:39)
[2019-08-26] MEDS: BUMETANIDE 1 MG/4 ML VIAL IV SCH ×2 (08:42→17:44)
[2019-08-26] MEDS: MUPIROCIN 2% OINT 22GM TUBE TOP SCH ×2 (08:42→19:49)
[2019-08-26] MEDS ORDERED: Pharmacy Consult 1 EA XX PRN (08:47)
[2019-08-26] MEDS: HEPARIN 5000 UNIT/ML 1 ML VIAL SQ SCH (09:00)
[2019-08-26] MEDS: DIVALPROEX ER 250 MG TAB PO SCH ×2 (09:00→19:49)
[2019-08-26] MEDS ORDERED: BUMETANIDE 1 MG/4 ML VIAL IV SCH (09:00)
[2019-08-26] MEDS ORDERED: DIVALPROEX SODIUM PO SCH (09:00)
[2019-08-26] MEDS ORDERED: SODIUM BICARB 325 MG TAB PO SCH (09:00)
[2019-08-26] MEDS ORDERED: VANCOMYCIN 1.75 GM in NA CHLORIDE 0.9% 500 ML IVPB SCH (09:00)
--- NOTE | 2019-08-26 10:02 | RAD REPORT ---
EXAM DESCRIPTION: US - Extrem Venous W Compress Pool - 08/26/2019 9:54 am CLINICAL HISTORY: DVT COMPARISON: None. TECHNIQUE: Real-time sonographic evaluation of the bilateral lower extremity common femoral, superfi cial femoral, popliteal and posterior tibial veins was performed. FINDINGS: Normal compressibility, flow augmentation, phasic flow and spontaneous flow are identified in the left lower extremity common femoral, superficial femoral, popliteal and posterior tibial vein s. No DVT could be confirmed in the left lower extremity. The right common femoral and proximal portion of the femoral vein show echogenic material filling the lumen. Diminished or absent compression noted. More distally in the femoral vein, popliteal vein and ankle veins of the right lower extremity no additional thrombus identified. IMPRESSION: Acute right lower extremity deep venous thrombosis involving the common femoral and prox imal portion of the femoral vein. No DVT identifiable in the left lower extremity.
--- NOTE | 2019-08-26 10:09 | RAD REPORT ---
EXAM DESCRIPTION: RAD - Abdomen 1 View (KUB) - 08/26/2019 9:48 am CLINICAL HISTORY: abdominal distension, Acute rhabd COMPARISON: No comparisons FINDINGS: Dilated colon is present from cecum to at least descending colon. Rectum is not clearly di lated. There is small bowel dilatation as well. No free air or pneumatosis identifiable. No prior casie ging is available to determine baseline pattern for the patient. This could be a severe ileus or Ogil vie's. Distal colon obstructive process is possible. No significant bony findings IMPRESSION: Dilated large and small bowel pattern as detailed. No free air or pneumatosis. Follow-up CT imaging may be helpful to evaluate for any mass or obstructive process.
[2019-08-26] MEDS: CEFTRIAXONE/SWI 1gm 1 GM/10 ML SYR IV SCH (10:27)
[2019-08-26] MEDS ORDERED: HEPARIN 10,000 UNIT/10 ML VIAL IV PRN (11:00)
--- NOTE | 2019-08-26 11:52 | RAD REPORT ---
EXAM DESCRIPTION: CT - Abdomen Pelvis Wo Contrast - 08/26/2019 11:15 am CLINICAL HISTORY: adbominal distension COMPARISON: Abdomen 1 View (KUB) dated 08/26/2019 TECHNIQUE: Axial [address] imaging of the abdomen and pelvis was performed without IV contrast. No IV contrast was given because of allergy, abnormal renal function, patient refusal or physician re quest. No oral contrast administered. All CT scans are performed using dose optimization technique as appropriate and may include automated exposure control or mA/KV adjustment according to patient size. FINDINGS: Trace left base pleural effusion with left greater than right lung base atelectasis. Heart size is normal. No pericardial effusion. A small hiatal hernia is present. There is retained fluid i n the distal esophagus likely reflux. The liver, spleen and pancreas show no suspicious findings on non-contrast imaging. Cholecystectomy c lips are present. No biliary tree dilatation. No hydronephrosis or suspicious renal mass. No significant adrenal finding. Isodense renal masses an d pyelonephritis cannot be excluded in the absence of IV contrast. No urinary bladder abnormality see n. Bladder is mostly contracted around a Durand catheter. Prostate gland is enlarged. No gastric dilatation or gastric wall thickening. Air and fluid are present in the stomach. No outlet obstruction suspected. Duodenum is normal size. Proximal jejunum is normal in size. There is progres sive dilatation in the small bowel up to 3.5 cm in diameter. This continues to the ileocecal valve. N o mass or transition point seen. Distention and dilation of the colon present to the level of the rec martha. This is fluid filled large and small bowel. Again, no mass or transition point seen. No wall thi ckening. Minimal amount of ascites present. No free air or pneumatosis. No hernia, mass or bulky lymphadenopat hy. Disc and bony degenerative changes are present. No acute bone finding. IMPRESSION: Distention and dilatation of the entire colon to the rectum with no obstructing mass, wa ll thickening or transition point identified. Distention and dilatation of the small bowel from mid jejunum to the ileocecal valve. Again, no mass, wall thickening or transition point. Baseline status for the patient is unknown. Findings may represent a very pronounced ileus. 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 No free air or surgically emergent finding. Full assessment is limited is the absence of IV contrast.
[2019-08-26] MEDS ORDERED: BISACODYL E.C. 5 MG TAB PO ONE (12:28)
--- NOTE | 2019-08-26 12:52 | RAD REPORT ---
EXAM DESCRIPTION: RAD - Chest Single View - 08/26/2019 12:45 pm CLINICAL HISTORY: confirm NG tube placement. COMPARISON: KUB imaging August 25 TECHNIQUE: AP portable chest image was obtained 08/26/2019 12:45 pm . FINDINGS: Dilated large and small bowel pattern is again noted. The NG tube is not identifiable on t his image. The superior aspect of the diaphragm in the lower chest are off the field of view. IMPRESSION: NG tube is not identifiable. Repeat imaging to include the lower chest and diaphragm may be helpful for better localization.
[2019-08-26] MEDS: HEPARIN/D5W 25,000 UNIT/500 ML BAG IV PRN (12:53)
[2019-08-26 13:15] LABS: Absolute Lymphocytes (CBC) 1.4 K/uL (0.7-4.9); Basophils % 0.6 % (0-1.3); Hematocrit 40.1 % (39.6-49.0); Lymphocytes % 15.2 % (15.3-44.8); MPV 8.7 fL (7.6-11.3); RBC Red Blood Cell Count 4.62 M/uL (4.33-5.43)
[2019-08-26 13:19] LABS: Protime INR 1.2
[2019-08-26 13:37] LABS: Potassium 3.4 mmol/L (3.5-5.1)
--- NOTE | 2019-08-26 14:05 | RAD REPORT ---
EXAM DESCRIPTION: RAD - Chest Single View - 08/25/2019 10:02 pm CLINICAL HISTORY: 59 years Male, Dyspnea COMPARISON: None. FINDINGS: The heart and mediastinum are within normal limits. The lung pan are clear of active infiltrates. There are low lung volumes. The pulmonary vascularity is unremarkable. No active pleural disease is present. IMPRESSION: 1. No active infiltrates. 2. Low lung volumes. Electronically signed by: Hudson Mario MD 08/25/2019 10:09 PM CDT Due to temporary technical issues with the PACS/Fluency reporting system, reports are being signed by the in house radiologist as a courtesy to ensure prompt reporting. The interpreting radiologist is f ully responsible for the content of the report.
--- NOTE | 2019-08-26 14:17 | P.PN ---
Subjective Date of Service: 08/26/19 Primary Care Provider: unknown Chief Complaint: Fall and weakness Subjective: Other (Rapid response called. Patient with increased shortness of breath. Increased abdominal distention noted. Stat KUB ordered. Patient also had venous Doppler showing positive for DVT. Heparin escalated. Patient transferred to ICU for close monitoring. NG tube to be placed.) Physical Examination - Vital Signs Temperature: 97.7 F Blood Pressure: 132/87 Pulse: 113 Respirations: 24 Pulse Ox (%): 90 - Physical Exam General: Alert, Cooperative, Acute distress HEENT: Atraumatic Neck: Supple Respiratory: Clear to auscultation bilaterally (Anteriorly) Cardiovascular: Abnormal pulses (Sinus tachycardia) Gastrointestinal: Normal bowel sounds, No tenderness, No masses, No rebound, No guarding, Distended Musculoskeletal: No tenderness, No warmth Integumentary: Tenderness/swelling (to the lower ext. ) Neurological: Normal speech, Normal strength at 5/5 x4 extr, Normal tone, Normal affect - Studies Medications List Reviewed: Yes Assessment & Plan Discharge Plan: Home Plan to discharge in: 72 Hours Physician Review Additional Text: Assessment Acute respiratory failure complicated with abdominal distention and poor respiratory effort with noted ileus Acute on chronic renal failure stage II with tubular necrosis secondary to traumatic rhabdomyolysis DVT Elevated aminotransferase levels with noted fatty liver Mechanical fall Diabetes mellitus type 2, uncontrolled Hypertension Schizophrenia Left knee abrasion and effusion Plan Acute respiratory failure complicated abdominal distension and poor respiratory effort with noted ileus: Patient transferred to ICU. Case discussed with pulmonology. Will repeat ABG. Patient will require BiPAP. Will continue to monitor closely. Maintain sats above 90%. If his condition continues decline p atient may require intubation. Case also discuss with surgery. NG tube now placed. Will need to check placement. Patient also given Dulcolax through NG tube as recommended by surgery. Will monitor closely. Case discussed with patient and family. Antibiotics also initiated by pulmonology. I have updated nephrology. Will continue with IV fluids. Await further recommendations from nephrology, pulmonology and surgery. Acute right lower extremity DVT involving common femoral/proximal portion of femoral vein: Case discussed with pharmacy. Will escalate heparin to DVT treatment. Acute on chronic renal failure stage 2 with tubular necrosis secondary to traumatic rhabdomyolysis: Continue with IV fluids. Await further recommendations from nephrology Elevated aminotransferase levels with noted fatty liver: Liver function tests improved. Liver ultrasound shows fatty liver. Mechanical fall: Will need to hold physical therapy at this time. Patient likely require skilled placement long-term.. Diabetes mellitus type 2, uncontrolled: Will change insulin to sliding scale Hypertension: Continue monitor closely. Will consider medication scheduled if blood pressure remains elevated. Schizophrenia: Continue home medication, may need to hold medication due to NPO status Left knee abrasion and effusion: Will have Bactroban applied to affected area and continue to monitor patient's me. Patient also to work with physical therapy. Critical Care: Yes (45) Time Spent Managing Pts Care (In Minutes): 45
[2019-08-26 14:36] LABS: Urine Protein/Creatinine Ratio 0.54 ratio (<0.15)
--- NOTE | 2019-08-26 14:58 | RAD REPORT ---
EXAM DESCRIPTION: RAD - Abdomen 1 View (KUB) - 08/26/2019 2:53 pm CLINICAL HISTORY: placement of NG tube Pain COMPARISON: Abdomen 1 View (KUB) dated 08/26/2019 FINDINGS: The NG tube appears coiled in the stomach. Diffuse distention of bowel loops again noted.
[2019-08-26 15:22] LABS: Arterial Blood Carboxyhemoglob 0.9 % (0-1.5); Blood Gas Oxyhemoglobin 92.7 % (94-97); Blood O2 Saturation 94.3 % (92-98.5)
--- NOTE | 2019-08-26 15:37 | P.PN ---
Subjective Date of Service: 08/26/19 Primary Care Provider: unknown Chief Complaint: Fall and weakness Pt seen and examined. Tachypneic per primary team. Transferred to ICU and now on bipap. Found to have DVT in his lower extremity Review of Systems General: Sweats Eyes: Unremarkable ENT: Unremarkable Respiratory: Shortness of Breath Cardiovascular: Edema Gastrointestinal: Distention Genitourinary: Unremarkable Musculoskeletal: Unremarkable Integumentary: Unremarkable Physical Examination - Vital Signs Temperature: 97.7 F Blood Pressure: 113/56 Pulse: 110 Respirations: 38 Pulse Ox (%): 97 - Physical Exam General: Mild distress HEENT: Atraumatic, Normocephalic, PERRLA Neck: Supple Respiratory: Diminished Cardiovascular: Normal S1 S2, Edema Capillary refill: <2 Seconds Gastrointestinal: Hypoactive, Distended Integumentary: Other Neurological: Other - Studies Medications List Reviewed: Yes Assessment And Plan - Current Problems (Diagnosis) (1) ARF (acute renal failure) with tubular necrosis Current Visit: Yes Status: Acute (2) Rhabdomyolysis Current Visit: Yes Status: Acute Qualifiers: Encounter type: initial encounter (3) Diabetes mellitus type II, uncontrolled Onset Date: 06/24/14 Current Visit: No Status: Acute (4) Fall Onset Date: 06/24/14 Current Visit: No Status: Acute - Plan JULIANNA on 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 Further work up ordered including THAI, UPC, complement No recovery noted No need for HD at this time. Will continue to monitor. Renal ultrasound unremarkable Strict i/o Avoid further nephrotoxins like nsaids, acei/arbs, contrast exposure, herbla supplementation Hypervolemia Discontinued fluids IV bumex 1mg bid Respiratory alkalosis Most likely 2/2 respiratory distress, compensated with metabolic acidosis Will diurese and primary team treat for PE Ileus Management per primary team
[2019-08-26 15:43] LABS: HBsAG Nonreactive (Nonreactive)
--- NOTE | 2019-08-26 15:49 | P.PN ---
Subjective Date of Service: 08/24/19 Primary Care Provider: unknown Chief Complaint: Fall and weakness Pt seen and examined. No issues or concerns. No overnight events Review of Systems General: Unremarkable Eyes: Unremarkable ENT: Unremarkable Respiratory: Unremarkable Cardiovascular: Unremarkable Gastrointestinal: Unremarkable Genitourinary: Unremarkable Musculoskeletal: Unremarkable Physical Examination - Vital Signs Temperature: 97.7 F Blood Pressure: 113/56 Pulse: 110 Respirations: 38 Pulse Ox (%): 97 - Physical Exam General: Alert, Oriented x3 HEENT: Atraumatic, Normocephalic, PERRLA Neck: Supple, No Thyromegaly, No LAD Respiratory: Diminished Cardiovascular: Edema Capillary refill: <2 Seconds Gastrointestinal: Normal bowel sounds Musculoskeletal: No clubbing, No swelling Integumentary: No rashes, No breakdown - Studies Medications List Reviewed: Yes Assessment And Plan - Current Problems (Diagnosis) (1) ARF (acute renal failure) with tubular necrosis Current Visit: Yes Status: Acute (2) Rhabdomyolysis Current Visit: Yes Status: Acute Qualifiers: Encounter type: initial encounter (3) Diabetes mellitus type II, uncontrolled Onset Date: 06/24/14 Current Visit: No Status: Acute (4) Fall Onset Date: 06/24/14 Current Visit: No Status: Acute - Plan JULIANNA on 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 No recovery noted No need for HD at this time. Will continue to monitor. Strict i/o Avoid further nephrotoxins like nsaids, acei/arbs, contrast exposure, herbla supplementation IVF decresaed to 100cc/h. Agree with plan Hypokalemia Repleted per primary team.
--- NOTE | 2019-08-26 15:54 | P.PN ---
Subjective Date of Service: 08/26/19 Primary Care Provider: unknown Chief Complaint: Fall and weakness Pt seen and examined. No issues or concerns. No overnight events Review of Systems General: Other Eyes: Unremarkable ENT: Unremarkable Respiratory: Unremarkable Gastrointestinal: Unremarkable Musculoskeletal: Unremarkable Integumentary: Unremarkable Neurological: Incoordination Physical Examination - Vital Signs Temperature: 97.7 F Blood Pressure: 113/56 Pulse: 110 Respirations: 38 Pulse Ox (%): 97 - Physical Exam General: Alert, Oriented x3 HEENT: Atraumatic, Normocephalic, Sclerae nonicteric Neck: Supple, No Thyromegaly Respiratory: Diminished Cardiovascular: Edema Capillary refill: <2 Seconds Gastrointestinal: Normal bowel sounds Musculoskeletal: No clubbing, No erythema, No tenderness Integumentary: No rashes Neurological: Normal affect - Studies Medications List Reviewed: Yes Assessment And Plan - Current Problems (Diagnosis) (1) ARF (acute renal failure) with tubular necrosis Current Visit: Yes Status: Acute (2) Rhabdomyolysis Current Visit: Yes Status: Acute Qualifiers: Encounter type: initial encounter (3) Diabetes mellitus type II, uncontrolled Onset Date: 06/24/14 Current Visit: No Status: Acute (4) Fall Onset Date: 06/24/14 Current Visit: No Status: Acute - Plan JULIANNA on 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 No recovery noted No need for HD at this time. Will continue to monitor. Strict i/o Avoid further nephrotoxins like nsaids, acei/arbs, contrast exposure, herbla supplementation IVF decresaed to 100cc/h. Agree with plan Hypokalemia Repleted per primary team.
[2019-08-26] MEDS ORDERED: SODIUM CHLORIDE 0.9% 10ML INJ IV PRN (17:56)
[2019-08-26] MEDS: PANTOPRAZOLE 40 MG INJ IVP SCH (19:50)
[2019-08-26] MEDS: LITHIUM CARBONATE 300 MG TAB PO SCH (19:50)
[2019-08-26] MEDS: RISPERIDONE 1 MG TABLET PO SCH (20:57)
[2019-08-27] MEDS: INSULIN -REGULAR HUMAN 50 UNIT/0.5 ML ML SQ SCH ×4 (06:00→17:44)
[2019-08-27 06:03] LABS: Absolute Lymphocytes (CBC) 1.4 K/uL (0.7-4.9); Basophils % 1.1 % (0-1.3); Hematocrit 40.4 % (39.6-49.0); MPV 8.9 fL (7.6-11.3); RBC Red Blood Cell Count 4.67 M/uL (4.33-5.43)
[2019-08-27 06:51] LABS: Albumin 2.3 g/dL (3.4-5.0); Bilirubin Total 0.8 mg/dL (0.2-1.0); Magnesium 2.3 mg/dL (1.8-2.4); Protein, Total 6.1 g/dL (6.4-8.2)
[2019-08-27] MEDS: HEPARIN/D5W 25,000 UNIT/500 ML BAG IV PRN (07:27)
[2019-08-27] MEDS: PANTOPRAZOLE 40 MG INJ IVP SCH ×2 (07:56→20:15)
[2019-08-27] MEDS: BUMETANIDE 1 MG/4 ML VIAL IV SCH ×2 (07:56→17:00)
[2019-08-27] MEDS: NICOTINE 21 MG/PAT TD SCH (07:57)
[2019-08-27] MEDS: CEFTRIAXONE/SWI 1gm 1 GM/10 ML SYR IV SCH (07:57)
--- NOTE | 2019-08-27 07:57 | ECHO ---
HEIGHT: 5 ft 10 in WEIGHT: 214 lb 14.4 oz DATE OF STUDY: 08/26/[address]: Tucker Quintana DO 2-DIMENSIONAL: YES M.MODE: YES DOPPLER: YES COLOR FLOW: YES TDS: YES PORTABLE: NO DEFINITY: NO BUBBLE STUDY: NO DIAGNOSIS: CONGESTIVE HEART FAILURE CARDIAC HISTORY: CATHERIZATION: NO SURGERY: NO PROSTHETIC VALVE: NO PACEMAKER: NO MEASUREMENTS (cm) DIASTOLIC (NORMALS) SYSTOLIC (NORMALS) IVSd 1.1 (0.6-1.2) LA Diam 3.5 (1.9-4.0) LVEF 65% LVIDd 2.4 (3.5-5.7) LVIDs 1.6 (2.0-3.5) %FS 33% LVPWd 1.1 (0.6-1.2) Ao Diam 2.3 (2.0-3.7) 2 DIMENSIONAL ASSESSMENT: RIGHT ATRIUM: LEFT ATRIUM: RIGHT VENTRICLE: LEFT VENTRICLE: TRICUSPID VALVE: MITRAL VALVE: PULMONIC VALVE: AORTIC VALVE: PERICARDIAL EFFUSION: AORTIC ROOT: LEFT VENTRICULAR WALL MOTION: DOPPLER/COLOR FLOW: COMMENTS: VERY POOR STUDY AND LIMITED WINDOWS. HOWEVER: LEFT VENTRICULAR EJECTION FRACTION APPEARS TO BE NORMAL. RECOMMEND REPEAT EXAM WITH CONTRAST TO BETTER EVALUATE. TECHNOLOGIST: MAYUR WYATT
[2019-08-27] MEDS: MUPIROCIN 2% OINT 22GM TUBE TOP SCH ×2 (07:58→20:16)
[2019-08-27] MEDS: DIVALPROEX ER 250 MG TAB PO SCH ×2 (08:07→20:16)
--- NOTE | 2019-08-27 10:53 | RAD REPORT ---
EXAM DESCRIPTION: RAD - Abdomen 1 View (KUB) - 08/27/2019 9:14 am CLINICAL HISTORY: SBO Pain COMPARISON: Abdomen 1 View (KUB) dated 08/26/2019; Abdomen 1 View (KUB) dated 08/26/2019 FINDINGS: Significantly distended loops of bowel are present, unchanged. Enteric tube coils in the s tomach. Mild atelectasis is suspected in both lower lung pan.
--- NOTE | 2019-08-27 11:15 | P.PN ---
Subjective Date of Service: 08/27/19 Primary Care Provider: unknown Chief Complaint: Fall and weakness Subjective: Improving (patient continues to pass more gas, and had another bowel movement, but small and liquid.) Physical Examination - Vital Signs Temperature: 101.8 F Blood Pressure: 120/74 Pulse: 102 Respirations: 41 Pulse Ox (%): 94 - Physical Exam General: Alert, In no apparent distress, Cooperative HEENT: Mucous membr. moist/pink Gastrointestinal: Soft and benign, Other (remains typanic, no pain, tenderness, rebound, guarding, or peritonitis), Distended - Studies Medications List Reviewed: Yes Assessment And Plan - Current Problems (Diagnosis) (1) Jessica's syndrome Current Visit: Yes Status: Acute Plan: - continue electrolyte correction - minimize pain medications - serial exams - correct coagulopathy - medical management - no urgent need for neostigmine or colonoscopic decompression at this time. Physician Review: Patient Assessed, Agree with Above Assessment and Plan Physician Review Additional Text: Assessment Acute respiratory failure complicated with abdominal distention and poor respiratory effort with noted ileus Acute on chronic renal failure stage II with tubular necrosis secondary to traumatic rhabdomyolysis DVT Elevated aminotransferase levels with noted fatty liver Mechanical fall Diabetes mellitus type 2, uncontrolled Hypertension Schizophrenia Left knee abrasion and effusion Plan Acute respiratory failure complicated abdominal distension and poor respiratory effort with noted ileus: Patient transferred to ICU. Case discussed with pulmonology. Will repeat ABG. Patient will require BiPAP. Will continue to monitor closely. Maintain sats above 90%. If his condition continues decline patient may require intubation. Case also discuss with surgery. NG tube now placed. Will need to check placement. Patient also given Dulcolax through NG tube as recommended by surgery. Will monitor closely. Case discussed with patient and family. Antibiotics also initiated by pulmonology. I have updated nephrology. Will continue with IV fluids. Await further recommendations from nephrology, pulmonology and surgery. Acute right lower extremity DVT involving common femoral/proximal portion of femoral vein: Case discussed with pharmacy. Will escalate heparin to DVT treatment. Acute on chronic renal failure stage 2 with tubular necrosis secondary to traumatic rhabdomyolysis: Continue with IV fluids. Await further recommendations from nephrology Elevated aminotransferase levels with noted fatty liver: Liver function tests improved. Liver ultrasound shows fatty liver. Mechanical fall: Will need to hold physical therapy at this time. Patient likely require skilled placement long-term.. Diabetes mellitus type 2, uncontrolled: Will change insulin to sliding scale Hypertension: Continue monitor closely. Will consider medication scheduled if blood pressure remains elevated. Schizophrenia: Continue home medication, may need to hold medication due to NPO status Left knee abrasion and effusion: Will have Bactroban applied to affected area and continue to monitor patient's me. Patient also to work with physical therapy.
--- NOTE | 2019-08-27 11:39 | P.PN ---
Subjective Date of Service: 08/27/19 Primary Care Provider: unknown Chief Complaint: Respiratory failure ruiz virus infection Patient is not doing well he is currently tachypneic on a BiPAP has DVT ileus was likely complications of a ruiz virus infection patient was started on heparin has significantly elevated PTT admitted with rhabdomyolysis Review of Systems is unable to be obtained Physical Examination - Vital Signs Temperature: 101.8 F Blood Pressure: 120/74 Pulse: 102 Respirations: 41 Pulse Ox (%): 94 - Physical Exam General: Other (Examination deferred) - Studies Medications List Reviewed: Yes Assessment & Plan - Problems (Diagnosis) (1) Rhabdomyolysis Current Visit: Yes Status: Acute Plan: Patient admitted with rhabdomyolysis his CPK is declining the be from ruiz virus infection continue with IV fluids patient also has ileus blood cultures negative kind Dc vancomycin to minimize nephrotoxicity continue with Rocephin blood pressure is stable Qualifiers: Encounter type: initial encounter (2) DVT (deep venous thrombosis) Current Visit: Yes Status: Acute Plan: Patient has DVT most likely pulmonary embolism PTT he remains very elevated on heparin will recheck his PTT in 4 hr consider changing over to Lovenox once a day hypoxic respiratory alkalosis combined with metabolic acidosis CBCs unremarkable (3) Respiratory failure Current Visit: Yes Status: Acute Plan: Patient is hypoxic respiratory failure may have ruiz virus pneumonia continue with BiPAP increased EPAP patient is a good candidate for convalescent plasma hepatitis profile nonreactive patient is febrile Qualifiers: Chronicity: acute Physician Review: Patient Assessed, Agree with Above Assessment and Plan
--- NOTE | 2019-08-27 12:29 | CON ---
Date of Consultation: 08/26/2019 Brief History Of Present Illness: Patient is a 59-year-old speaking male with past medical history of diabetes, hypertension, which is predominantly diet-controlled with schizophrenia, on lith ium for approximately 7 years, who was found to have fallen several days prior to his admission on . He apparently was, by report, down for 2 days and found down. At this point, he was broug ht in by his sister who called EMS, who ultimately had him brought to the hospital. He did have some respiratory complaints as well, but could not properly convey this due to being on BiPAP during my d iscussion with him. He currently has no abdominal pain, but is distended and states that his belly f eels full. He has had some nausea, vomiting at this time. During his admission, he was found to hav e rhabdomyolysis and was admitted for the above-stated issues. He had been treated medically for the above-stated complaints. He was found to be COVID positive during his admission as well. Past Medical History: Significant for diabetes, schizophrenia, hypertension. Past Surgical History: He denies any surgical history. Home Medications: Include divalprovex, doxepin, lithium, Risperdal, allopurinol, , and Lev aquin. Allergies: NO KNOWN DRUG ALLERGIES. Social History: He denies smoking, alcohol, or recreational drug. Review of Systems: Ten-point review of systems other than HPI, he only has some abdominal distention, but continues to h ave bowel function by his report. Physical Examination: Vital Signs: His blood pressure was 120/74, heart rate was 102, respiratory rate was 40, temperature 101.8. Pain level has been 0 for several days. O2 saturation was 94%. He is currently on CPAP. General: He is awake, alert, oriented, and conversive, but appears short of breath when BiPAP is not applied. HEENT: Otherwise normocephalic. His sclerae were anicteric. Mucous membranes were moist. Orophary nx clear. Neck: Supple. No JVD. Chest: Normal expansion and excursion. Cardiovascular: He was minimally tachycardic. Abdomen: Soft, but distended. No rebound. No guarding. No focal peritonitis. It was nontender, b ut globally distended and tympanic. There were no peritoneal signs. No obvious scars. Extremities: No clubbing, cyanosis, or edema. SKIN: Warm and dry. Laboratory Data: Reveals a white blood count of 9.5, hemoglobin is 14.3, hematocrit of 40.1, platele t count was 184, neutrophils 72%. His sodium was 138, potassium 3.4, chloride 109, carbon dioxide is 17, BUN 67, creatinine 3.2, his glucose is 150. His lactic acid is 1.4, calcium is 7.6, magnesium i s 1.9, total bilirubin is 0.7, AST is 362, ALT 102, alkaline phosphatase is 46. His CK was 7285 on m y evaluation. Troponin was 0.15. ProBNP was 632. He had imaging performed, which included a KUB an d abdominal CT abdomen and pelvis on 08/[address] Booker reading. The official read on his CT sca n of the abdomen and pelvis is distention and dilatation of the entire colon to the rectum with no ob structing mass, wall thickening or transition point identified. Distention of the small bowel from t he mid jejunum to ileocecal valve, again no mass, wall thickening, or transition point. Baseline sta tus of the patient is unknown. Findings may represent a very pronounced ileus. This could also be O gilvie's of the colon with secondary small bowel dilatation. 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 1.IV fluid hydration. 2.Recommend electrolyte correction. 3.Minimize pain medication. 4.The patient is currently anticoagulated. I recommend judicious use of anticoagulants and tight mo nitoring. 5.Serial abdominal exams. 6.The patient is currently continuing to have bowel function and as such I do not see any emergent n eed for surgical intervention. However, we can consider neostigmine versus a colonoscopic decompress ion with rectal tube placement should the patient's condition deteriorate or show signs of concern an d worsening of his abdominal exam. KAYLEE/ABADL Voice ID: [id number] Report ID: [id number]
[2019-08-27] MEDS ORDERED: ACETAMINOPHEN 650MG/RECT SUPP PR PRN (14:30)
[2019-08-27] MEDS ORDERED: NACHLORIDE 0.45% 1,000 ML IV SCH (15:00)
--- NOTE | 2019-08-27 16:30 | P.PN ---
Subjective Date of Service: 08/27/19 Primary Care Provider: unknown Chief Complaint: Respiratory failure ruiz virus infection Subjective: Other (appears better clinically. still on BIPAP) Physical Examination - Vital Signs Temperature: 101.8 F Blood Pressure: 113/74 Pulse: 106 Respirations: 40 Pulse Ox (%): 93 - Physical Exam General: Alert HEENT: Atraumatic Neck: Supple Respiratory: Clear to auscultation bilaterally Cardiovascular: Normal pulses, Regular rate/rhythm Gastrointestinal: Normal bowel sounds, Other (no pain), Distended Neurological: Normal strength at 5/5 x4 extr, Normal tone, Normal affect - Studies Medications List Reviewed: Yes Assessment & Plan Discharge Plan: Home Plan to discharge in: Greater than 2 days Physician Review Additional Text: Assessment Acute respiratory failure complicated with abdominal distention and poor respiratory effort with noted ileus complicated with positive COVID 19 Acute on chronic renal failure stage II with tubular necrosis secondary to traumatic rhabdomyolysis DVT Elevated aminotransferase levels with noted fatty liver Mechanical fall Diabetes mellitus type 2, uncontrolled Hypertension Schizophrenia Left knee abrasion and effusion Plan Acute respiratory failure complicated abdominal distension and poor respiratory effort with noted ileus complicated with positive COVID 19: Patient currently stable this time. Case discussed at length with pulmonology. Continue diuresis. Patient remains on BiPAP. Will monitor closely. Case discussed with family who has agreed with convalescent plasma. Will pursue this. Will discuss with nurses well. Case also discuss with nephrology. She agrees with diuresis. Will stop IV fluids. Will continue to assess Acute right lower extremity DVT involving common femoral/proximal portion of femoral vein: PTT elevated. Case discussed with pulmonology. Pulmonology has changed to Lovenox Acute on chronic renal failure stage 2 with tubular necrosis secondary to traumatic rhabdomyolysis: Continue as above. Discontinue IV fluids Elevated aminotransferase levels with noted fatty liver: Liver function tests improved. Liver ultrasound shows fatty liver. Mechanical fall: Will need to hold physical therapy at this time. Patient likely require skilled placement long-term.. Diabetes mellitus type 2, uncontrolled: Will change insulin to sliding scale Hypertension: Continue monitor closely. Will consider medication scheduled if blood pressure remains elevated. Schizophrenia: Continue home medication, may need to hold medication due to NPO status Left knee abrasion and effusion: Will have Bactroban applied to affected area and continue to monitor patient's me. Patient also to work with physical therapy. Time Spent Managing Pts Care (In Minutes): 55
[2019-08-27] MEDS ORDERED: NA CHLORIDE 0.9% 500 ML ONE (17:10)
[2019-08-27] MEDS: KCL 20 MEQ/100 mL IVPB 20 MEQ/100 ML BAG IV SCH ×2 (18:00→20:15)
[2019-08-27 18:23] LABS: Arterial Blood Carboxyhemoglob 0.7 % (0-1.5); Blood Gas Oxyhemoglobin 94.2 % (94-97); Blood O2 Saturation 95.8 % (92-98.5)
--- NOTE | 2019-08-27 18:47 | P.PN ---
Subjective Date of Service: 08/27/19 Primary Care Provider: unknown Chief Complaint: Respiratory failure ruiz virus infection Subjective: Improving Pt maintained on BIPAP. Respirations better. ptt still elevated. Pulmonary following for anticoagulation Review of Systems is unable to be obtained General: Other (Maintained on bipap. ) Physical Examination - Vital Signs Temperature: 101.5 F (Febrile consistent with covid) Blood Pressure: 113/74 Pulse: 106 Respirations: 40 Pulse Ox (%): 93 - Physical Exam General: Alert, Oriented x3, Mild distress, Other (Maintained on biPAP) HEENT: Atraumatic, Normocephalic, PERRLA Neck: Supple, No Thyromegaly Respiratory: Diminished Cardiovascular: No edema Capillary refill: <2 Seconds Gastrointestinal: Hypoactive, Distended Integumentary: No rashes, No breakdown - Studies Medications List Reviewed: Yes Assessment & Plan - Problems (Diagnosis) (1) ARF (acute renal failure) with tubular necrosis Current Visit: Yes Status: Acute (2) Rhabdomyolysis Current Visit: Yes Status: Acute Qualifiers: Encounter type: initial encounter (3) Diabetes mellitus type II, uncontrolled Onset Date: 06/24/14 Current Visit: No Status: Acute (4) Fall Onset Date: 06/24/14 Current Visit: No Status: Acute Plan: PLAN JULIANNA worsening; 2/2 ATN with covid syndrome.Rhabdomylysis possible resultant of COVID Will continue bumex 1mg iv bid Strict i/o Agree with plasma exchange as may be beneficial. Will monitor for recovery or need for HD Rhabdomylysis Most likely 2.2 viral syndrome and being obese with prolonged immobility Improved but with consequence of renal failure. CK downtrending Hypokalemia 2/2 diuresis Repleted. Recheck later this evening Elevated INR on heparin Agree with with-holding heparin Will check DIC panel as may be contributory to elevated inr Consider restarting once therapeutic or may start on renally dosed alternate regimen Respiratory alkalosis with metabolic acidosis Will continue to monitor
[2019-08-27] MEDS ORDERED: ENOXAPARIN 100 MG/ML SYR SQ SCH (20:00)
[2019-08-27] MEDS: LITHIUM CARBONATE 300 MG TAB PO SCH (20:17)
[2019-08-27] MEDS: RISPERIDONE 1 MG TABLET PO SCH (20:17)
[2019-08-27 21:58] LABS: Protime INR 1.29
[2019-08-28] MEDS: INSULIN -REGULAR HUMAN 50 UNIT/0.5 ML ML SQ SCH ×4 (06:00→17:00)
[2019-08-28 06:10] LABS: Absolute Lymphocytes (CBC) 1.9 K/uL (0.7-4.9); Basophils % 0.5 % (0-1.3); Hematocrit 39.5 % (39.6-49.0); Lymphocytes % 15.2 % (15.3-44.8); MPV 9.2 fL (7.6-11.3); RBC Red Blood Cell Count 4.51 M/uL (4.33-5.43)
[2019-08-28] MEDS: DIVALPROEX ER 250 MG TAB PO SCH ×2 (07:13→20:14)
[2019-08-28 07:21] LABS: Albumin 2.3 g/dL (3.4-5.0); Bilirubin Total 0.7 mg/dL (0.2-1.0); Magnesium 2.5 mg/dL (1.8-2.4); Protein, Total 6.2 g/dL (6.4-8.2)
[2019-08-28] MEDS: NICOTINE 21 MG/PAT TD SCH (08:23)
[2019-08-28] MEDS: CEFTRIAXONE/SWI 1gm 1 GM/10 ML SYR IV SCH (08:23)
[2019-08-28] MEDS: BUMETANIDE 1 MG/4 ML VIAL IV SCH ×2 (08:24→16:56)
[2019-08-28] MEDS: MUPIROCIN 2% OINT 22GM TUBE TOP SCH ×2 (08:25→20:14)
[2019-08-28] MEDS: dexAMETHasone 4 MG/ML VIAL IV SCH ×2 (08:33→16:57)
[2019-08-28] MEDS: PANTOPRAZOLE 40 MG INJ IVP SCH (08:33)
[2019-08-28] MEDS ORDERED: ENOXAPARIN 30 MG/0.3 ML SQ SCH (09:00)
[2019-08-28] MEDS: D5W 1,000 ML with POTASSIUM CL 40 MEQ IV SCH ×4 (09:48→23:36)
[2019-08-28] MEDS ORDERED: HALOPERIDOL LACT 5 MG/ML INJ IV PRN (10:09)
--- NOTE | 2019-08-28 10:13 | P.PN ---
Subjective Date of Service: 08/28/19 (Hospitalist) Primary Care Provider: unknown Chief Complaint: Respiratory failure ruiz virus infection Patient is not doing well still requiring BiPAP now back on Lovenox the sats a very quickly renal function is worse Review of Systems is unable to be obtained Physical Examination - Vital Signs Temperature: 99.7 F Blood Pressure: 98/63 Pulse: 102 Respirations: 33 Pulse Ox (%): 92 - Physical Exam General: Other (Deferred patient is in isolation) - Studies Medications List Reviewed: Yes Assessment & Plan - Problems (Diagnosis) (1) Rhabdomyolysis Current Visit: Yes Status: Acute Plan: rhabdomyolysis is improving patient has hypernatremia renal function worse seen by Nephrology white count mildly elevated I have started patient on Decadron currently on D5 water agree with Lasix Qualifiers: Encounter type: initial encounter (2) DVT (deep venous thrombosis) Current Visit: Yes Status: Acute Plan: Continue with dose adjusted Lovenox unable to tolerate p.o. medications start TPN reduce dose of Lovenox 90 mg as q.day Qualifiers: DVT location: lower extremity Affected thrombotic vein of extremity: femoral (3) Respiratory failure Current Visit: Yes Status: Acute Plan: Patient is hypoxic respiratory failure may have ruiz virus pneumonia continue with BiPAP increased EPAP patient is stable on BiPAP Qualifiers: Chronicity: acute Physician Review: Patient Assessed, Agree with Above Assessment and Plan Physician Review Additional Text: Assessment Acute respiratory failure complicated with abdominal distention and poor respiratory effort with noted ileus complicated with positive COVID 19 Acute on chronic renal failure stage II with tubular necrosis secondary to traumatic rhabdomyolysis DVT Elevated aminotransferase levels with noted fatty liver Mechanical fall Diabetes mellitus type 2, uncontrolled Hypertension Schizophrenia Left knee abrasion and effusion Plan Acute respiratory failure complicated abdominal distension and poor respiratory effort with noted ileus complicated with positive COVID 19: Patient currently stable this time. Case discussed at length with pulmonology. Continue diuresis. Patient remains on BiPAP. Will monitor closely. Case discussed with family who has agreed with convalescent plasma. Will pursue this. Will discuss with nurses well. Case also discuss with nephrology. She agrees with diuresis. Will stop IV fluids. Will continue to assess Acute right lower extremity DVT involving common femoral/proximal portion of femoral vein: PTT elevated. Case discussed with pulmonology. Pulmonology has changed to Lovenox Acute on chronic renal failure stage 2 with tubular necrosis secondary to traumatic rhabdomyolysis: Continue as above. Discontinue IV fluids Elevated aminotransferase levels with noted fatty liver: Liver function tests improved. Liver ultrasound shows fatty liver. Mechanical fall: Will need to hold physical therapy at this time. Patient gary lang require skilled placement long-term.. Diabetes mellitus type 2, uncontrolled: Will change insulin to sliding scale Hypertension: Continue monitor closely. Will consider medication scheduled if blood pressure remains elevated. Schizophrenia: Continue home medication, may need to hold medication due to NPO status Left knee abrasion and effusion: Will have Bactroban applied to affected area and continue to monitor patient's me. Patient also to work with physical therapy.
[2019-08-28] MEDS ORDERED: ENOXAPARIN 100 MG/ML SYR SQ ONE (11:00)
--- NOTE | 2019-08-28 11:32 | P.PN ---
Subjective Date of Service: 08/28/19 Primary Care Provider: unknown Chief Complaint: Respiratory failure ruiz virus infection Subjective: No new changes (Patient continues to be pain free from abdominal standpoint, no complaints. had large bowel movement continues to pass gas.) Physical Examination - Vital Signs Temperature: 99.7 F Blood Pressure: 98/63 Pulse: 102 Respirations: 33 Pulse Ox (%): 92 - Physical Exam General: Alert Gastrointestinal: Soft and benign, Distended - Studies Medications List Reviewed: Yes Assessment And Plan - Current Problems (Diagnosis) (1) [place]'s syndrome Current Visit: Yes Status: Acute Plan: - continue electrolyte correction - minimize pain medications - serial exams - correct coagulopathy - medical management - no urgent need for neostigmine or colonoscopic decompression at this time. Physician Review: Patient Assessed, Agree with Above Assessment and Plan Physician Review Additional Text: Assessment Acute respiratory failure complicated with abdominal distention and poor respiratory effort with noted ileus complicated with positive COVID 19 Acute on chronic renal failure stage II with tubular necrosis secondary to traumatic rhabdomyolysis DVT Elevated aminotransferase levels with noted fatty liver Mechanical fall Diabetes mellitus type 2, uncontrolled Hypertension Schizophrenia Left knee abrasion and effusion Plan Acute respiratory failure complicated abdominal distension and poor respiratory effort with noted ileus complicated with positive COVID 19: Patient currently stable this time. Case discussed at length with pulmonology. Continue diuresis. Patient remains on BiPAP. Will monitor closely. Case discussed with family who has agreed with convalescent plasma. Will pursue this. Will discuss with nurses well. Case also discuss with nephrology. She agrees with diuresis. Will stop IV fluids. Will continue to assess Acute right lower extremity DVT involving common femoral/proximal portion of femoral vein: PTT elevated. Case discussed with pulmonology. Pulmonology has changed to Lovenox Acute on chronic renal failure stage 2 with tubular necrosis secondary to traumatic rhabdomyolysis: Continue as above. Discontinue IV fluids Elevated aminotransferase levels with noted fatty liver: Liver function tests improved. Liver ultrasound shows fatty liver. Mechanical fall: Will need to hold physical therapy at this time. Patient likely require skilled placement long-term.. Diabetes mellitus type 2, uncontrolled: Will change insulin to sliding scale Hypertension: Continue monitor closely. Will consider medication scheduled if blood pressure remains elevated. Schizophrenia: Continue home medication, may need to hold medication due to NPO status Left knee abrasion and effusion: Will have Bactroban applied to affected area and continue to monitor patient's me. Patient also to work with physical therapy.
--- NOTE | 2019-08-28 11:54 | RAD REPORT ---
EXAM DESCRIPTION: RAD - Abdomen 1 View (KUB) - 08/28/2019 8:41 am CLINICAL HISTORY: SBO Pain COMPARISON: Abdomen 1 View (KUB) dated 08/27/2019; Abdomen 1 View (KUB) dated 08/26/2019; Abdomen 1 View (KUB) dated 08/26/2019; Abdomen Pelvis Wo Contrast dated 08/26/2019 FINDINGS: Diffuse distention of bowel loops is again noted, appearing unchanged since comparative st udy. This may represent a bowel obstruction or diffuse adynamic ileus. Free air is not seen, however the entire abdomen is not included on this study.
[2019-08-28] MEDS ORDERED: NA CHLORIDE 0.9% 250 ML ONE (15:52)
[2019-08-28] MEDS: AA 4.25%/D10W/ELECTROLYTES 2,000 ML, Lipids 20% 250 ML with MULTIVITAMINS INJ 10 ML IV SCH ×3 (16:54)
[2019-08-28] MEDS: RISPERIDONE 1 MG TABLET PO SCH (20:15)
[2019-08-28] MEDS: LITHIUM CARBONATE 300 MG TAB PO SCH (20:15)
--- NOTE | 2019-08-28 22:42 | P.PN ---
Subjective Date of Service: 08/29/19 Primary Care Provider: unknown Chief Complaint: Respiratory failure ruiz virus infection Subjective: Improving (Tachypnea improving. Still maintained on bipap with decreasing requirements) Pt maintained on BIPAP. Respirations better. ptt still elevated. Pulmonary following for anticoagulation Review of Systems General: Fever Eyes: Unremarkable ENT: Unremarkable Respiratory: Shortness of Breath Cardiovascular: Edema Gastrointestinal: Distention Genitourinary: Unremarkable Physical Examination - Vital Signs Temperature: 99.5 F Blood Pressure: 105/65 Pulse: 95 Respirations: 26 Pulse Ox (%): 95 - Physical Exam General: Alert, In no apparent distress, Oriented x3 HEENT: Atraumatic, Normocephalic, PERRLA Neck: Supple, No Thyromegaly Respiratory: Diminished Cardiovascular: Edema Capillary refill: <2 Seconds Gastrointestinal: Hypoactive Musculoskeletal: No swelling Integumentary: No rashes - Studies Medications List Reviewed: Yes Assessment & Plan - Problems (Diagnosis) (1) ARF (acute renal failure) with tubular necrosis Current Visit: Yes Status: Acute (2) Rhabdomyolysis Current Visit: Yes Status: Acute Qualifiers: Encounter type: initial encounter (3) Diabetes mellitus type II, uncontrolled Onset Date: 06/24/14 Current Visit: No Status: Acute (4) Fall Onset Date: 06/24/14 Current Visit: No Status: Acute Plan: PLAN Hypernatemia 2/2 diuresis without any free water intake Will start on d5w @75cc/h and continue diuresis JULIANNA worsening; 2/2 ATN with covid syndrome.Rhabdomylysis possible resultant of COVID Will continue bumex 1mg iv bid Strict i/o Agree with as may be beneficial. Will monitor for recovery or need for HD Rhabdomylysis Most likely 2.2 viral syndrome and being obese with prolonged immobility Improved but with consequence of renal failure. CK downtrending Hypokalemia 2/2 diuresis Repleted. Recheck in the morning. Elevated INR on heparin; resolved Now maintained on lovenox, renally dosed Respiratory alkalosis with metabolic acidosis Will continue to monitor
[2019-08-29] MEDS: INSULIN -REGULAR HUMAN 50 UNIT/0.5 ML ML SQ SCH ×4 (00:12→18:08)
[2019-08-29] MEDS: dexAMETHasone 4 MG/ML VIAL IV SCH ×3 (00:13→16:27)
[2019-08-29 05:46] LABS: Basophils % 0.4 % (0-1.3); Hematocrit 37.7 % (39.6-49.0); Lymphocytes % 9.6 % (15.3-44.8); MPV 9.1 fL (7.6-11.3)
[2019-08-29 06:04] LABS: Potassium 3.7 mmol/L (3.5-5.1)
--- NOTE | 2019-08-29 07:32 | RAD REPORT ---
EXAM DESCRIPTION: RAD - Abdomen 1 View (KUB) - 08/29/2019 7:06 am CLINICAL HISTORY: SBO COMPARISON: Abdomen 1 View (KUB) dated 08/28/2019; Abdomen 1 View (KUB) dated 08/27/2019 FINDINGS: Diffuse large and small bowel distention is again noted. No free air or pneumatosis identi fiable. Pattern is not substantially different dating back to the August 26 study. No suspicious calcifications. Lower lumbar bony degenerative change again noted. IMPRESSION: Diffuse large and small bowel distention not significantly different back to August 26 stud y.
[2019-08-29] MEDS: DIVALPROEX ER 250 MG TAB PO SCH ×2 (08:25→21:00)
[2019-08-29] MEDS: BUMETANIDE 1 MG/4 ML VIAL IV SCH ×2 (08:48→16:41)
[2019-08-29] MEDS: CEFTRIAXONE/SWI 1gm 1 GM/10 ML SYR IV SCH (08:49)
[2019-08-29] MEDS: PANTOPRAZOLE 40 MG INJ IVP SCH (08:49)
[2019-08-29] MEDS ORDERED: WATER FOR INJ,STERILE 10 ML ONE (08:49)
[2019-08-29] MEDS: ENOXAPARIN 100 MG/ML SYR SQ SCH (08:50)
[2019-08-29] MEDS: NICOTINE 21 MG/PAT TD SCH (08:50)
[2019-08-29] MEDS: MUPIROCIN 2% OINT 22GM TUBE TOP SCH ×2 (08:50→21:00)
--- NOTE | 2019-08-29 10:47 | P.PN ---
Subjective Date of Service: 08/29/19 Primary Care Provider: unknown Chief Complaint: Respiratory failure ruiz virus infection, and renal failure DVT Patient seems to be steadily improving although the renal function is slightly worse he is more responsive cooperative on BiPAP labs reviewed vital signs stable Review of Systems is unable to be obtained Physical Examination - Vital Signs Temperature: 97.2 F Blood Pressure: 110/70 Pulse: 95 Respirations: 20 Pulse Ox (%): 95 - Physical Exam General: Acute distress, Delirious Respiratory: Clear to auscultation bilaterally Cardiovascular: Edema Gastrointestinal: Hypoactive, No tenderness, No rebound - Studies Medications List Reviewed: Yes Assessment & Plan - Problems (Diagnosis) (1) Rhabdomyolysis Current Visit: Yes Status: Acute Plan: rhabdomyolysis is improving patient has hypernatremia renal function worse seen by Nephrology white count mildly elevated I have started patient on Decadron currently on D5 water agree with Lasix Qualifiers: Encounter type: initial encounter (2) DVT (deep venous thrombosis) Current Visit: Yes Status: Acute Plan: Continue with Lovenox Qualifiers: DVT location: lower extremity Affected thrombotic vein of extremity: femoral (3) Respiratory failure Current Visit: Yes Status: Acute Plan: Patient is still hypoxic requiring BiPAP Qualifiers: Chronicity: acute (4) Hypernatremia Current Visit: Yes Status: Acute Plan: Increase the rate of IV fluids Physician Review: Patient Assessed, Agree with Above Assessment and Plan
[2019-08-29] MEDS ORDERED: D50W 25 GM/50 ML SYRINGE/VIAL IV PRN ×2 (10:50→17:52)
[2019-08-29] MEDS ORDERED: GLUCAGON 1 MG/VIAL IM PRN ×2 (10:50→17:52)
[2019-08-29] MEDS ORDERED: INSULIN GLARGINE 100 UNITS/ML SQ SCH (10:50)
[2019-08-29] MEDS: D5W 1,000 ML with POTASSIUM CL 40 MEQ IV SCH ×4 (12:15→20:55)
[2019-08-29] MEDS: AA 4.25%/D10W/ELECTROLYTES 2,000 ML, Lipids 20% 250 ML with MULTIVITAMINS INJ 10 ML IV SCH ×3 (16:26)
[2019-08-29] MEDS ORDERED: INSULIN -REGULAR HUMAN 50 UNIT/0.5 ML ML SQ SCH (16:30)
[2019-08-29] MEDS ORDERED: INSULIN GLARGINE 100 UNITS/ML SQ ONE (17:52)
[2019-08-29] MEDS: LITHIUM CARBONATE 300 MG TAB PO SCH (21:00)
[2019-08-29] MEDS: RISPERIDONE 1 MG TABLET PO SCH (21:00)
[2019-08-29] MEDS ORDERED: NA CHLORIDE 0.9% 250 ML ONE (21:12)
[2019-08-30] MEDS: dexAMETHasone 4 MG/ML VIAL IV SCH ×4 (00:21→17:00)
[2019-08-30] MEDS: INSULIN -REGULAR HUMAN 50 UNIT/0.5 ML ML SQ SCH ×4 (00:30→18:04)
[2019-08-30] MEDS: D5W 1,000 ML with POTASSIUM CL 40 MEQ IV SCH ×6 (05:26→19:24)
[2019-08-30] MEDS: PANTOPRAZOLE 40 MG INJ IVP SCH (07:13)
[2019-08-30] MEDS: CEFTRIAXONE/SWI 1gm 1 GM/10 ML SYR IV SCH (07:13)
[2019-08-30] MEDS: MUPIROCIN 2% OINT 22GM TUBE TOP SCH ×2 (07:14→19:25)
[2019-08-30] MEDS: ENOXAPARIN 100 MG/ML SYR SQ SCH (07:14)
[2019-08-30] MEDS: DIVALPROEX ER 250 MG TAB PO SCH ×2 (07:14→19:28)
[2019-08-30] MEDS: NICOTINE 21 MG/PAT TD SCH (07:15)
--- NOTE | 2019-08-30 07:39 | P.PN ---
Subjective Date of Service: 08/30/19 Primary Care Provider: unknown Chief Complaint: Respiratory failure ruiz virus infection, and renal failure DVT Subjective: Improving Pt maintained on BIPAP. Respirations better. transferred to 4th floor Review of Systems General: Unremarkable Eyes: Unremarkable ENT: Unremarkable Respiratory: Shortness of Breath, SOB with Excertion Cardiovascular: Unremarkable Gastrointestinal: As per HPI Genitourinary: Unremarkable Musculoskeletal: Unremarkable Integumentary: Unremarkable Physical Examination - Vital Signs Temperature: 97.0 F Blood Pressure: 137/84 Pulse: 101 Respirations: 22 Pulse Ox (%): 95 - Physical Exam General: Alert, Oriented x3 HEENT: Atraumatic, Normocephalic, PERRLA Cardiovascular: No edema Gastrointestinal: Hypoactive Musculoskeletal: No clubbing, No swelling Integumentary: No breakdown Neurological: Normal speech, Cranial nerves 3-12 intact - Studies Medications List Reviewed: Yes Assessment & Plan - Problems (Diagnosis) (1) ARF (acute renal failure) with tubular necrosis Current Visit: Yes Status: Acute (2) Rhabdomyolysis Current Visit: Yes Status: Acute Qualifiers: Encounter type: initial encounter (3) Diabetes mellitus type II, uncontrolled Onset Date: 06/24/14 Current Visit: No Status: Acute (4) Fall Onset Date: 06/24/14 Current Visit: No Status: Acute Plan: PLAN Hypernatemia 2/2 diuresis without any free water intake Agree with increasing d5w to 125cc/h d/c bumex JULIANNA worsening; 2/2 ATN with covid syndrome.Rhabdomylysis possible resultant of COVID d/c bumex 1mg iv bid Strict i/o Agree with as may be beneficial. Will monitor for recovery or need for HD No need for hd, stable, volume, lytes, no uremia Rhabdomylysis Most likely 2.2 viral syndrome and being obese with prolonged immobility Improved but with consequence of renal failure. CK downtrending Hypokalemia 2/2 diuresis Repleted. Recheck in the morning. Elevated INR on heparin; resolved Now maintained on lovenox, renally dosed Respiratory alkalosis with metabolic acidosis Will continue to monitor
[2019-08-30 08:57] LABS: Potassium 4.7 mmol/L (3.5-5.1)
[2019-08-30] MEDS ORDERED: INSULIN GLARGINE 100 UNITS/ML SQ SCH (09:00)
--- NOTE | 2019-08-30 13:02 | P.PN ---
Subjective Date of Service: 09/14/19 Primary Care Provider: unknown Chief Complaint: Respiratory failure ruiz virus infection, and renal failure DVT Patient is improving he is off the BiPAP Physical Examination - Vital Signs Temperature: 97.9 F Blood Pressure: 143/75 Pulse: 103 Respirations: 19 Pulse Ox (%): 97 - Physical Exam General: Other (Deferred) - Studies Medications List Reviewed: Yes Assessment & Plan - Problems (Diagnosis) (1) Rhabdomyolysis Status: Acute Plan: Patient is clinically moving he can be transferred from a negative pressure room to a regular room on the 4th floor on nasal cannula oxygen is still hyperglycemic hypernatremia continue with IV fluids increase Lantus renal function is improving will need increase fluid intake CPK is down to 590 Qualifiers: Encounter type: initial encounter (2) DVT (deep venous thrombosis) Status: Acute Plan: Continue with Lovenox Qualifiers: DVT location: lower extremity Affected thrombotic vein of extremity: femoral (3) Respiratory failure Status: Acute Plan: Patient is still hypoxic requiring BiPAP Qualifiers: Chronicity: acute (4) Hypernatremia Status: Acute Plan: Increase the rate of IV fluids Physician Review: Patient Assessed, Agree with Above Assessment and Plan
[2019-08-30] MEDS: AA 4.25%/D10W/ELECTROLYTES 2,000 ML, Lipids 20% 250 ML with MULTIVITAMINS INJ 10 ML IV SCH ×3 (18:05)
--- NOTE | 2019-08-30 18:12 | P.PN ---
Subjective Date of Service: 08/30/19 Primary Care Provider: unknown Chief Complaint: Respiratory failure ruiz virus infection, and renal failure DVT Subjective: Improving Physical Examination - Vital Signs Temperature: 98.2 F Blood Pressure: 118/72 Pulse: 104 Respirations: 24 Pulse Ox (%): 95 - Physical Exam General: Alert HEENT: Atraumatic Neck: Supple Respiratory: Other (better breathing noted. On BIPAP) - Studies Medications List Reviewed: Yes Assessment & Plan Discharge Plan: Home Plan to discharge in: Greater than 2 days Physician Review Additional Text: Assessment Acute respiratory failure complicated with abdominal distention and poor respiratory effort with noted ileus complicated with positive COVID 19 Acute on chronic renal failure stage II with tubular necrosis secondary to traumatic rhabdomyolysis DVT Elevated aminotransferase levels with noted fatty liver Mechanical fall Diabetes mellitus type 2, uncontrolled Hypertension Schizophrenia Left knee abrasion and effusion Plan Acute respiratory failure complicated abdominal distension and poor respiratory effort with noted ileus complicated with positive COVID 19: Patient still requires BiPAP. Continue to wean off. Continue with convalescent plasma. Consents finally obtained. Will discuss further with pulmonology. Spoke with surgery. NG tube to be removed. Patient be started on clears. Anticipate improvement over the next couple of days. Acute right lower extremity DVT involving common femoral/proximal portion of femoral vein: Not on anti coalition therapy Acute on chronic renal failure stage 2 with tubular necrosis secondary to traumatic rhabdomyolysis with hypernatremia: Patient started on IV fluids. Will discuss further with nephrology Elevated aminotransferase levels with noted fatty liver: Liver function tests improved. Liver ultrasound shows fatty liver. Mechanical fall: Will need to hold physical therapy at this time. Patient likely require skilled placement long-term.. Diabetes mellitus type 2, uncontrolled: Will change insulin to sliding scale Hypertension: Continue monitor closely. Will consider medication scheduled if blood pressure remains elevated. Schizophrenia: Continue home medication, may need to hold medication due to NPO status Left knee abrasion and effusion: Will have Bactroban applied to affected area and continue to monitor patient's me. Patient also to work with physical therapy. Time Spent Managing Pts Care (In Minutes): 55
[2019-08-30] MEDS: LITHIUM CARBONATE 300 MG TAB PO SCH (19:28)
[2019-08-30] MEDS: RISPERIDONE 1 MG TABLET PO SCH (19:29)
--- NOTE | 2019-08-30 21:31 | P.PN ---
Date of Service: 08/30/19 Chart reviewed and discussed with primary team Kidney function is improving. Hypernatremia is improving on d5 with 40meq of kcl. Will discontinue as potassium is 4.7. Will start on d5w@130cc/h Daily monitoring of volume status and kidney function Will continue to monitor.
[2019-08-30] MEDS: D5W 1,000 ML IV SCH (22:00)
[2019-08-31] MEDS: INSULIN -REGULAR HUMAN 50 UNIT/0.5 ML ML SQ SCH ×5 (00:07→22:00)
[2019-08-31] MEDS: dexAMETHasone 4 MG/ML VIAL IV SCH ×3 (00:08→20:45)
[2019-08-31] MEDS: D5W 1,000 ML IV SCH ×3 (05:26→14:40)
[2019-08-31 05:35] VITALS: BMI 27.7
[2019-08-31] MEDS: DIVALPROEX ER 250 MG TAB PO SCH ×2 (07:42→20:44)
[2019-08-31] MEDS: NICOTINE 21 MG/PAT TD SCH (07:43)
[2019-08-31] MEDS: ENOXAPARIN 100 MG/ML SYR SQ SCH (07:43)
[2019-08-31] MEDS: PANTOPRAZOLE 40 MG INJ IVP SCH (07:44)
[2019-08-31] MEDS: MUPIROCIN 2% OINT 22GM TUBE TOP SCH ×2 (07:53→20:45)
[2019-08-31] MEDS ORDERED: NEPRO SHAKE 237 ML CAN PO SCH (09:00)
[2019-08-31] MEDS ORDERED: INSULIN GLARGINE 100 UNITS/ML SQ SCH (09:00)
--- NOTE | 2019-08-31 11:39 | P.PN ---
Subjective Date of Service: 08/31/19 Primary Care Provider: unknown Chief Complaint: Respiratory failure ruiz virus infection, and renal failure DVT Subjective: Other (Patient alert. Patient requiring less oxygen. Currently on 1 L per nasal cannula. Still appears dry.) Physical Examination - Vital Signs Temperature: 97.6 F Blood Pressure: 117/72 Pulse: 94 Respirations: 16 Pulse Ox (%): 94 - Physical Exam General: Alert, In no apparent distress HEENT: Atraumatic, Other (Mild abrasions to the nasal bridge and sides of the nares due to BiPAP mask) Respiratory: Clear to auscultation bilaterally Cardiovascular: Normal pulses Gastrointestinal: Other (Patient does not appear distended. No pain noted.) Neurological: Normal speech, Normal strength at 5/5 x4 extr, Normal tone, Abnormal affect (Flat affect) - Studies Medications List Reviewed: Yes Assessment & Plan Discharge Plan: Other (Home versus skilled placement) Plan to discharge in: Greater than 2 days Physician Review Additional Text: Assessment Acute respiratory failure complicated with abdominal distention and poor respiratory effort with noted ileus complicated with positive COVID 19 Acute on chronic renal failure stage II with tubular necrosis secondary to traumatic rhabdomyolysis DVT Elevated aminotransferase levels with noted fatty liver Mechanical fall Diabetes mellitus type 2, uncontrolled Hypertension Schizophrenia Left knee abrasion and effusion Nasal abrasion secondary from BIPAP mask Plan Acute respiratory failure complicated abdominal distension and poor respiratory effort with noted ileus complicated with positive COVID 19: Patient continues to improve respiratory correa. Patient has received convalescent plasma. Patient requiring less O2 today. Patient getting IV fluids due to hypernatremia. Case discussed with pulmonology and nephrology yesterday. Case also discuss with respiratory to continue wean off oxygen. Will increase diet to GI soft. Case discussed with surgery yesterday. Case discussed with psychiatric social worker supervisor. Patient needs to ambulate but this will be very difficult. Will discuss further with family And multiple specialists. Acute right lower extremity DVT involving common femoral/proximal portion of femoral vein: Patient on Lovenox at this time. Continue monitor closely. Acute on chronic renal failure stage 2 with tubular necrosis secondary to traumatic rhabdomyolysis with hypernatremia: Patient given D5 W. will check lab today. Will discuss further with nephrology. Elevated aminotransferase levels with noted fatty liver: Liver ultrasound shows fatty liver. Mechanical fall: Patient requires physical therapy but this is very difficult since the patient is positive for COVID. Will discuss further with psychiatric social worker supervisor as alone may need to think about long-term plan of care. Will discuss with family. Diabetes mellitus type 2, uncontrolled: Continue to adjust basal insulin for better control. Continue sliding scale as well. Hypertension: Continue monitor closely. Will consider medication scheduled if blood pressure remains elevated. Schizophrenia: Continue home medication Left knee abrasion and effusion: Will have Bactroban applied to affected area and continue to monitor patient's me. Patient also to work with physical therapy. Nasal abrasion secondary from BIPAP mask: Will apply Bactroban ointment. Will monitor closely. Time Spent Managing Pts Care (In Minutes): 55
[2019-08-31 12:11] LABS: Potassium 4.4 mmol/L (3.5-5.1)
--- NOTE | 2019-08-31 13:06 | P.PN ---
Subjective Date of Service: 09/14/19 Primary Care Provider: unknown Chief Complaint: Respiratory failure ruiz virus infection, and renal failure DVT Patient is clinically improving his saturation is satisfactory little drowsy does not follow commands hypernatremic renal function improving hyperglycemic Review of Systems is unable to be obtained Physical Examination - Vital Signs Temperature: 97.6 F Blood Pressure: 117/72 Pulse: 94 Respirations: 16 Pulse Ox (%): 94 - Physical Exam General: Other (Deferred patient is on isolation) - Studies Medications List Reviewed: Yes Assessment & Plan - Problems (Diagnosis) (1) Rhabdomyolysis Status: Acute Plan: Improving CPK not checked today he Qualifiers: Encounter type: initial encounter (2) DVT (deep venous thrombosis) Status: Acute Plan: Continue with Lovenox Qualifiers: DVT location: lower extremity Affected thrombotic vein of extremity: femoral (3) Respiratory failure Status: Acute Plan: Doing much better on BiPAP patient is hyperglycemic agree with weaning off the TPN. He is also on D5 water for hypernatremia and that probably can also be weaned off increases insulin for now discuss with the nurse advance diet kidney function is steadily improving Qualifiers: Chronicity: acute (4) Hypernatremia Status: Acute Plan: Increase the rate of IV fluids Physician Review: Patient Assessed, Agree with Above Assessment and Plan
[2019-08-31] MEDS: RISPERIDONE 1 MG TABLET PO SCH (20:43)
[2019-08-31] MEDS: LITHIUM CARBONATE 300 MG TAB PO SCH (20:44)
[2019-08-31] MEDS: GLUCERNA SHAKE 237 ML CAN PO SCH (20:46)
--- NOTE | 2019-08-31 20:51 | P.PN ---
Subjective Date of Service: 09/01/19 Primary Care Provider: unknown Chief Complaint: Respiratory failure ruiz virus infection, and renal failure DVT Pt now on 2l nasal canula. Doing very well. Needs to be prompted for po intake Review of Systems General: Weakness Eyes: Unremarkable ENT: Unremarkable Respiratory: Shortness of Breath Cardiovascular: Unremarkable Gastrointestinal: Unremarkable Genitourinary: Unremarkable Musculoskeletal: Unremarkable Integumentary: Unremarkable Neurological: Unremarkable Lymphatics: Unremarkable Physical Examination - Vital Signs Temperature: 98.1 F Blood Pressure: 116/68 Pulse: 87 Respirations: 16 Pulse Ox (%): 94 - Physical Exam General: Alert, Oriented x3 HEENT: Atraumatic, Normocephalic Neck: Supple, No Thyromegaly Respiratory: Diminished Cardiovascular: Regular rate/rhythm, Normal S1 S2 Gastrointestinal: Normal bowel sounds, Soft and benign, Non-distended Integumentary: No rashes - Studies Medications List Reviewed: Yes Assessment And Plan - Current Problems (Diagnosis) (1) ARF (acute renal failure) with tubular necrosis Current Visit: Yes Status: Acute (2) Rhabdomyolysis Current Visit: Yes Status: Acute Qualifiers: Encounter type: initial encounter (3) Diabetes mellitus type II, uncontrolled Onset Date: 06/24/14 Current Visit: No Status: Acute (4) Fall Onset Date: 06/24/14 Current Visit: No Status: Acute Plan: PLAN Hypernatemia 2/2 deficit free water intake Agree with increasing d5w to 150cc/h. Pt no longer npo. Will encourage to increase oral fluid so as to decrease IV requirement JULIANNA improving Continue to monitor Avoid nephrotoxins Rhabdomylysis; resolved Most likely 2.2 viral syndrome and being obese with prolonged immobility Hypokalemia 2/2 diuresis; resolved Elevated INR on heparin; resolved Respiratory alkalosis with metabolic acidosis; resolved.
[2019-09-01] MEDS: D5W 1,000 ML IV SCH ×3 (01:45→10:13)
[2019-09-01] MEDS: INSULIN -REGULAR HUMAN 50 UNIT/0.5 ML ML SQ SCH ×3 (08:40→16:05)
[2019-09-01] MEDS: INSULIN GLARGINE 100 UNITS/ML SQ SCH (08:42)
[2019-09-01] MEDS: PANTOPRAZOLE 40 MG INJ IVP SCH (08:43)
[2019-09-01] MEDS: ENOXAPARIN 100 MG/ML SYR SQ SCH (08:43)
[2019-09-01] MEDS: dexAMETHasone 4 MG/ML VIAL IV SCH ×2 (08:45→20:19)
[2019-09-01] MEDS: MUPIROCIN 2% OINT 22GM TUBE TOP SCH ×2 (08:45→21:00)
[2019-09-01] MEDS: GLUCERNA SHAKE 237 ML CAN PO SCH ×2 (08:46→20:20)
[2019-09-01] MEDS: DIVALPROEX ER 250 MG TAB PO SCH ×2 (08:46→20:19)
[2019-09-01] MEDS: NICOTINE 21 MG/PAT TD SCH (08:47)
[2019-09-01] MEDS ORDERED: D5W 1,000 ML IV SCH (12:39)
--- NOTE | 2019-09-01 12:45 | P.PN ---
Subjective Date of Service: 09/14/19 Primary Care Provider: unknown Chief Complaint: Respiratory failure ruiz virus infection, and renal failure DVT Patient is improving still a little lethargic hypernatremic glycemic encourage p.o. fluids and poly Dc his dextrose IV and he has TPN [place] helping control blood sugars a little better Review of Systems is unable to be obtained Physical Examination - Vital Signs Temperature: 97.8 F Blood Pressure: 116/62 Pulse: 85 Respirations: 20 Pulse Ox (%): 94 - Physical Exam General: Other (Deferred) - Studies Medications List Reviewed: Yes Assessment & Plan - Problems (Diagnosis) (1) DVT (deep venous thrombosis) Status: Acute Plan: Continue with Lovenox Qualifiers: DVT location: lower extremity Affected thrombotic vein of extremity: femoral (2) Respiratory failure Status: Acute Plan: Patient is improving Dc BiPAP Qualifiers: Chronicity: acute (3) Hypernatremia Status: Acute Plan: Reduce IV fluid rate patient is hyperglycemic wean off TPN diffuse not eating consider inserting . dobhoff and tube feeds instead Physician Review: Patient Assessed, Agree with Above Assessment and Plan
--- NOTE | 2019-09-01 16:46 | P.PN ---
Subjective Date of Service: 09/01/19 Primary Care Provider: unknown Chief Complaint: Respiratory failure ruiz virus infection, and renal failure DVT Subjective: Doing well Physical Examination - Vital Signs Temperature: 97.8 F Blood Pressure: 116/62 Pulse: 85 Respirations: 20 Pulse Ox (%): 94 - Physical Exam General: Other (Patient continues to improve daily. Less oxygen recurring noted) Respiratory: Clear to auscultation bilaterally Cardiovascular: Normal pulses Neurological: Normal speech, Normal strength at 5/5 x4 extr, Normal tone, Normal affect - Studies Medications List Reviewed: Yes Assessment & Plan Discharge Plan: Home Plan to discharge in: 72 Hours Physician Review Additional Text: Assessment Acute respiratory failure complicated with abdominal distention and poor respiratory effort with noted ileus complicated with positive COVID 19 Acute on chronic renal failure stage II with tubular necrosis secondary to traumatic rhabdomyolysis DVT Elevated aminotransferase levels with noted fatty liver Mechanical fall Diabetes mellitus type 2, uncontrolled Hypertension Schizophrenia Left knee abrasion and effusion Nasal abrasion secondary from BIPAP mask Plan Acute respiratory failure complicated abdominal distension and poor respiratory effort with noted ileus complicated with positive COVID 19: Patient continues to improve respiratory correa. Patient has received convalescent plasma. Patient requiring less O2 today. Patient getting IV fluids due to hypernatremia. Case discussed with pulmonology. Encourage ambulation. Will transition from TPN to oral feeds. Encourage oral intake. Will have nurses encourage ambulation as the patient will likely require skilled placement. Or if the patient is able to ambulate then will consider home once able to move. Acute right lower extremity DVT involving common femoral/proximal portion of femoral vein: Patient on Lovenox at this time. Continue monitor closely. Acute on chronic renal failure stage 2 with tubular necrosis secondary to traumatic rhabdomyolysis with hypernatremia: Patient given D5 W. will check lab today. Will discuss further with nephrology. Elevated aminotransferase levels with noted fatty liver: Liver ultrasound shows fatty liver. Mechanical fall: Patient requires physical therapy but this is very difficult since the patient is positive for COVID. Will discuss further with executive secretary social welfare as alone may need to think about long-term plan of care. Will discuss with family. Diabetes mellitus type 2, uncontrolled: Continue to adjust basal insulin for better control. Continue sliding scale as well. Hypertension: Continue monitor closely. Will consider medication scheduled if blood pressure remains elevated. Schizophrenia: Continue home medication Left knee abrasion and effusion: Will have Bactroban applied to affected area and continue to monitor patient's me. Patient also to work with physical therapy. Nasal abrasion secondary from BIPAP mask: Will apply Bactroban ointment. Will monitor closely. Time Spent Managing Pts Care (In Minutes): 55
[2019-09-01] MEDS: RISPERIDONE 1 MG TABLET PO SCH (20:20)
[2019-09-01] MEDS: LITHIUM CARBONATE 300 MG TAB PO SCH (20:20)
[2019-09-02] MEDS: INSULIN -REGULAR HUMAN 50 UNIT/0.5 ML ML SQ SCH ×5 (00:53→21:59)
[2019-09-02 01:07] LABS: Potassium 4.3 mmol/L (3.5-5.1)
[2019-09-02] MEDS: D5W 1,000 ML IV SCH ×4 (01:35→23:40)
--- NOTE | 2019-09-02 06:48 | P.PN ---
Subjective Date of Service: 09/02/19 Primary Care Provider: unknown Chief Complaint: Respiratory failure ruiz virus infection, and renal failure DVT Pt now on 2l nasal canula. Still not tolerate much po intake per nurse. Otherwise doing ok Review of Systems General: Weakness Cardiovascular: Unremarkable Gastrointestinal: Unremarkable Genitourinary: Unremarkable Musculoskeletal: Pedal edema Integumentary: Unremarkable Neurological: Unremarkable Physical Examination - Vital Signs Temperature: 97.0 F Blood Pressure: 145/74 Pulse: 91 Respirations: 16 Pulse Ox (%): 99 - Physical Exam General: Alert, In no apparent distress HEENT: Atraumatic, PERRLA, EOMI Neck: Supple, JVD not distended Respiratory: Diminished Cardiovascular: Regular rate/rhythm, Normal S1 S2 Capillary refill: <2 Seconds Gastrointestinal: Normal bowel sounds, No tenderness Musculoskeletal: No tenderness Integumentary: No rashes - Studies Medications List Reviewed: Yes Assessment & Plan - Problems (Diagnosis) (1) ARF (acute renal failure) with tubular necrosis Current Visit: Yes Status: Acute (2) Rhabdomyolysis Current Visit: Yes Status: Acute Qualifiers: Encounter type: initial encounter (3) Diabetes mellitus type II, uncontrolled Onset Date: 06/24/14 Current Visit: No Status: Acute (4) Fall Onset Date: 06/24/14 Current Visit: No Status: Acute Plan: Hypernatemia 2/2 deficit free water intake Agree with d5w @ 150cc/h. Pt no longer npo. Will encourage to increase oral fluid so as to decrease IV requirement Recheck bmp later to assess titration of gtt JULIANNA improving Continue to monitor Avoid nephrotoxins Rhabdomylysis; resolved Most likely 2.2 viral syndrome and being obese with prolonged immobility Hypokalemia 2/2 diuresis; resolved Elevated INR on heparin; resolved Respiratory alkalosis with metabolic acidosis; resolved. Will continue to follow
[2019-09-02 07:28] LABS: Potassium 4.4 mmol/L (3.5-5.1)
[2019-09-02] MEDS: GLUCERNA SHAKE 237 ML CAN PO SCH ×2 (09:00→21:00)
[2019-09-02] MEDS: MUPIROCIN 2% OINT 22GM TUBE TOP SCH ×2 (09:00→21:00)
[2019-09-02] MEDS: ENOXAPARIN 100 MG/ML SYR SQ SCH (09:13)
[2019-09-02] MEDS: NICOTINE 21 MG/PAT TD SCH (09:13)
[2019-09-02] MEDS: dexAMETHasone 4 MG/ML VIAL IV SCH ×2 (09:14→21:58)
[2019-09-02] MEDS: INSULIN GLARGINE 100 UNITS/ML SQ SCH (09:16)
[2019-09-02] MEDS: DIVALPROEX ER 250 MG TAB PO SCH ×2 (09:16→21:59)
--- NOTE | 2019-09-02 18:43 | P.PN ---
Subjective Date of Service: 09/02/19 Primary Care Provider: unknown Chief Complaint: Respiratory failure ruiz virus infection, and renal failure DVT Subjective: Doing well Physical Examination - Vital Signs Temperature: 97.7 F Blood Pressure: 133/81 Pulse: 94 Respirations: 16 Pulse Ox (%): 96 - Physical Exam General: Alert, Other (Patient doing better peer) Neck: Supple Respiratory: Other (No respiratory distress) Cardiovascular: Normal pulses Neurological: Normal speech, Normal strength at 5/5 x4 extr, Normal tone, Normal affect - Studies Medications List Reviewed: Yes Assessment & Plan Discharge Plan: Home Plan to discharge in: 72 Hours Physician Review Additional Text: Assessment Acute respiratory failure complicated with abdominal distention and poor respiratory effort with noted ileus complicated with positive COVID 19 Acute on chronic renal failure stage II with tubular necrosis secondary to traumatic rhabdomyolysis DVT Elevated aminotransferase levels with noted fatty liver Mechanical fall Diabetes mellitus type 2, uncontrolled Hypertension Schizophrenia Left knee abrasion and effusion Nasal abrasion secondary from BIPAP mask Plan Acute respiratory failure complicated abdominal distension and poor respiratory effort with noted ileus complicated with positive COVID 19: Patient continues to improve respiratory correa. Patient has received convalescent plasma. Patient requiring less O2 today. IV fluids adjusted by Nephrology. Recommended nurse or physical therapy to ambulate patient. Will need to ambulate in order for the patient to be able to go home with home health and physical therapy otherwise will need to consider skilled placement. Acute right lower extremity DVT involving common femoral/proximal portion of femoral vein: Patient on Lovenox at this time. Continue monitor closely. Acute on chronic renal failure stage 2 with tubular necrosis secondary to traumatic rhabdomyolysis with hypernatremia: Nephrology to address Elevated aminotransferase levels with noted fatty liver: Liver ultrasound shows fatty liver. Mechanical fall: Patient requires physical therapy but this is very difficult since the patient is positive for COVID. Will discuss further with social welfare clerk as alone may need to think about long-term plan of care. Will discuss with family. Diabetes mellitus type 2, uncontrolled: Continue to adjust basal insulin for better control. Continue sliding scale as well. Hypertension: Continue monitor closely. Will consider medication scheduled if blood pressure remains elevated. Schizophrenia: Continue home medication Left knee abrasion and effusion: Will have Bactroban applied to affected area and continue to monitor patient's me. Patient also to work with physical therapy. Nasal abrasion secondary from BIPAP mask: Will apply Bactroban ointment. Will monitor closely. Time Spent Managing Pts Care (In Minutes): 55
[2019-09-02] MEDS: RISPERIDONE 1 MG TABLET PO SCH (22:00)
[2019-09-02] MEDS: LITHIUM CARBONATE 300 MG TAB PO SCH (22:00)
[2019-09-03] MEDS: D5W 1,000 ML IV SCH ×3 (06:30→20:26)
[2019-09-03] MEDS: INSULIN -REGULAR HUMAN 50 UNIT/0.5 ML ML SQ SCH ×4 (07:30→21:00)
[2019-09-03] MEDS: ENOXAPARIN 100 MG/ML SYR SQ SCH (08:48)
[2019-09-03] MEDS: DIVALPROEX ER 250 MG TAB PO SCH (08:48)
[2019-09-03] MEDS: dexAMETHasone 4 MG/ML VIAL IV SCH ×2 (08:48→20:26)
[2019-09-03] MEDS: NICOTINE 21 MG/PAT TD SCH (08:48)
[2019-09-03] MEDS: GLUCERNA SHAKE 237 ML CAN PO SCH ×2 (08:49→20:27)
[2019-09-03] MEDS: INSULIN GLARGINE 100 UNITS/ML SQ SCH (08:49)
[2019-09-03] MEDS: MUPIROCIN 2% OINT 22GM TUBE TOP SCH ×2 (08:50→21:00)
--- NOTE | 2019-09-03 17:26 | P.PN ---
Subjective Date of Service: 09/03/19 Primary Care Provider: unknown Chief Complaint: Respiratory failure ruiz virus infection, and renal failure DVT Subjective: Improving Physical Examination - Vital Signs Temperature: 98.1 F Blood Pressure: 128/75 Pulse: 80 Respirations: 18 Pulse Ox (%): 96 - Physical Exam General: Alert, Cooperative HEENT: Atraumatic Neck: Supple Respiratory: Other (Patient does not appear labored.) Cardiovascular: Normal pulses Neurological: Normal speech, Normal strength at 5/5 x4 extr, Normal tone, Normal affect - Studies Medications List Reviewed: Yes Assessment & Plan Discharge Plan: Other ([facility] facility versus home with home health) Plan to discharge in: Greater than 2 days Physician Review Additional Text: Assessment Acute respiratory failure complicated with abdominal distention and poor respiratory effort with noted ileus complicated with positive COVID 19 Acute on chronic renal failure stage II with tubular necrosis secondary to traumatic rhabdomyolysis DVT Elevated aminotransferase levels with noted fatty liver Mechanical fall Diabetes mellitus type 2, uncontrolled Hypertension Schizophrenia Left knee abrasion and effusion Nasal abrasion secondary from BIPAP mask Plan Acute respiratory failure complicated abdominal distension and poor respiratory effort with noted ileus complicated with positive COVID 19: Patient continues to improve respiratory correa. Patient has received convalescent plasma. Patient requiring less O2 today. IV fluids adjusted by Nephrology. Recommended nurse or physical therapy to ambulate patient. Will need to ambulate in order for the patient to be able to go home with home health and physical therapy otherwise will need to consider skilled placement. Case discussed with health social work professor to help with discharge plan of care. Will try to reach out to family today. Acute right lower extremity DVT involving common femoral/proximal portion of femoral vein: Patient on Lovenox at this time. Continue monitor closely. Acute on chronic renal failure stage 2 with tubular necrosis secondary to traumatic rhabdomyolysis with hypernatremia: Nephrology to address Elevated aminotransferase levels with noted fatty liver: Liver ultrasound shows fatty liver. Mechanical fall: Patient requires physical therapy but this is very difficult since the patient is positive for COVID. Will discuss further with health social work professor as alone may need to think about long-term plan of care. Will discuss with family. Diabetes mellitus type 2, uncontrolled: Continue to adjust basal insulin for better control. Continue sliding scale as well. Hypertension: Continue monitor closely. Will consider medication scheduled if blood pressure remains elevated. Schizophrenia: Continue home medication Left knee abrasion and effusion: Will have Bactroban applied to affected area and continue to monitor patient's me. Patient also to work with physical therapy. Nasal abrasion secondary from BIPAP mask: Will apply Bactroban ointment. Will monitor closely. Time Spent Managing Pts Care (In Minutes): 55
[2019-09-03 19:20] LABS: Potassium 3.8 mmol/L (3.5-5.1)
[2019-09-03] MEDS: RISPERIDONE 1 MG TABLET PO SCH (20:26)
[2019-09-03] MEDS: LITHIUM CARBONATE 300 MG TAB PO SCH (20:27)
[2019-09-03] MEDS: DIVALPROEX NA 125 MG CAP PO SCH (20:27)
[2019-09-03] MEDS ORDERED: DIVALPROEX NA 125 MG CAP PO SCH (21:00)
[2019-09-04] MEDS: D5W 1,000 ML IV SCH ×7 (00:10→20:10)
[2019-09-04 08:08] LABS: Potassium 3.4 mmol/L (3.5-5.1)
[2019-09-04] MEDS: NICOTINE 21 MG/PAT TD SCH (08:57)
[2019-09-04] MEDS: ENOXAPARIN 100 MG/ML SYR SQ SCH (08:57)
[2019-09-04] MEDS: DIVALPROEX NA 125 MG CAP PO SCH ×2 (08:58→20:53)
[2019-09-04] MEDS: dexAMETHasone 4 MG/ML VIAL IV SCH (08:59)
[2019-09-04] MEDS: MUPIROCIN 2% OINT 22GM TUBE TOP SCH ×2 (08:59→21:37)
[2019-09-04] MEDS: INSULIN -REGULAR HUMAN 50 UNIT/0.5 ML ML SQ SCH ×4 (09:00→21:55)
[2019-09-04] MEDS: INSULIN GLARGINE 100 UNITS/ML SQ SCH (09:02)
[2019-09-04] MEDS: GLUCERNA SHAKE 237 ML CAN PO SCH ×2 (09:02→20:54)
--- NOTE | 2019-09-04 12:21 | P.PN ---
Subjective Date of Service: 09/06/19 Primary Care Provider: unknown Chief Complaint: Respiratory failure ruiz virus infection, and renal failure DVT Pt now on 2l nasal canula. Still not tolerate much po intake per nurse. Otherwise doing ok Review of Systems General: Unremarkable Eyes: Unremarkable ENT: Unremarkable Respiratory: Shortness of Breath Cardiovascular: Unremarkable Gastrointestinal: Unremarkable Musculoskeletal: Unremarkable Integumentary: Unremarkable Neurological: Unremarkable Physical Examination - Vital Signs Temperature: 97.9 F Blood Pressure: 121/77 Pulse: 97 Respirations: 20 Pulse Ox (%): 91 - Physical Exam General: Alert, In no apparent distress HEENT: Atraumatic, PERRLA, EOMI Neck: Supple, JVD not distended Cardiovascular: Regular rate/rhythm, Normal S1 S2 Capillary refill: <2 Seconds Gastrointestinal: Normal bowel sounds, No tenderness Musculoskeletal: No tenderness Integumentary: No rashes Neurological: Normal speech, Normal tone, Normal affect - Studies Medications List Reviewed: Yes Assessment & Plan - Problems (Diagnosis) (1) ARF (acute renal failure) with tubular necrosis Current Visit: Yes Status: Acute (2) Rhabdomyolysis Current Visit: Yes Status: Acute Qualifiers: Encounter type: initial encounter (3) Diabetes mellitus type II, uncontrolled Onset Date: 06/24/14 Current Visit: No Status: Acute (4) Fall Onset Date: 06/24/14 Current Visit: No Status: Acute Plan: Hypernatemia 2/2 deficit free water intake r/o diabetes insipides given lithium intake Check lithium level. Check urine osmolality as well as urine electrolytes Agree with d5w @ 150cc/h. Pt no longer npo. Will encourage to increase oral fluid so as to decrease IV requirement Recheck bmp later to assess titration of gtt JULIANNA improving Continue to monitor Avoid nephrotoxins Rhabdomylysis; resolved Most likely 2.2 viral syndrome and being obese with prolonged immobility Hypokalemia 2/2 diuresis; resolved Elevated INR on heparin; resolved Respiratory alkalosis with metabolic acidosis; resolved. Will continue to follow
--- NOTE | 2019-09-04 17:15 | P.PN ---
Subjective Date of Service: 09/04/19 Primary Care Provider: unknown Chief Complaint: Respiratory failure ruiz virus infection, and renal failure DVT Subjective: Other (Patient sitting up to chair. Still desires more fluid intake.) Physical Examination - Vital Signs Temperature: 97.9 F Blood Pressure: 121/77 Pulse: 97 Respirations: 20 Pulse Ox (%): 91 - Physical Exam General: Alert, In no apparent distress, Cooperative HEENT: Atraumatic Neck: Supple Respiratory: Clear to auscultation bilaterally, Normal air movement Cardiovascular: Normal pulses, Regular rate/rhythm Gastrointestinal: No masses, No rebound, No guarding Neurological: Normal speech, Normal tone, Normal affect, Other (Better strength noted) - Studies Medications List Reviewed: Yes Assessment & Plan Discharge Plan: Home Plan to discharge in: 72 Hours Physician Review Additional Text: Assessment Acute respiratory failure complicated with abdominal distention and poor respiratory effort with noted ileus complicated with positive COVID 19 Acute on chronic renal failure stage II with tubular necrosis secondary to traumatic rhabdomyolysis DVT Elevated aminotransferase levels with noted fatty liver Mechanical fall Diabetes mellitus type 2, uncontrolled Hypertension Schizophrenia Left knee abrasion and effusion Nasal abrasion secondary from BIPAP mask Plan Acute respiratory failure complicated abdominal distension and poor respiratory effort with noted ileus complicated with positive COVID 19: Patient continues to improve. Patient now room-air. Nephrology continues with IV fluids. Encourage oral intake. Negative balance noted. Encourage ambulation. If ambulating well would consider discharging home with home health likely in the next 3 days. Will change IV Decadron to oral low-dose prednisone. [place] level still below range. Continue current medication. Mentation overall stable. Acute right lower extremity DVT involving common femoral/proximal portion of femoral vein: Patient on Lovenox at this time. Continue monitor closely. Acute on chronic renal failure stage 2 with tubular necrosis secondary to traumatic rhabdomyolysis with hypernatremia: Continue with Nephrology recommendations Elevated aminotransferase levels with noted fatty liver: Liver ultrasound shows fatty liver. Will need to monitor lab. Will recheck tomorrow. Mechanical fall: Patient requires physical therapy but this is very difficult since the patient is positive for COVID. Will discuss further with social problems specialist as alone may need to think about long-term plan of care. Will discuss with family. Diabetes mellitus type 2, uncontrolled: Continue to adjust basal insulin for better control. Continue sliding scale as well. Hypertension: Continue monitor closely. Will consider medication scheduled if blood pressure remains elevated. Schizophrenia: Continue home medication Left knee abrasion and effusion: Will have Bactroban applied to affected area and continue to monitor patient's me. Patient also to work with physical therapy. Nasal abrasion secondary from BIPAP mask: Will apply Bactroban ointment. Will monitor closely. Time Spent Managing Pts Care (In Minutes): 55
[2019-09-04] MEDS: LITHIUM CARBONATE 300 MG TAB PO SCH (20:53)
[2019-09-04] MEDS: RISPERIDONE 1 MG TABLET PO SCH (20:53)
[2019-09-05] MEDS: D5W 1,000 ML IV SCH ×7 (00:02→17:19)
[2019-09-05 06:54] LABS: Absolute Lymphocytes (CBC) 1.7 K/uL (0.7-4.9); Basophils % 1.1 % (0-1.3); Hematocrit 31.4 % (39.6-49.0); Lymphocytes % 12.5 % (15.3-44.8); MPV 10.6 fL (7.6-11.3); RBC Red Blood Cell Count 3.59 M/uL (4.33-5.43)
[2019-09-05 07:18] LABS: Albumin 2.1 g/dL (3.4-5.0); Bilirubin Total 1.2 mg/dL (0.2-1.0); Magnesium 1.9 mg/dL (1.8-2.4); Protein, Total 5.4 g/dL (6.4-8.2)
[2019-09-05 07:20] LABS: Potassium 2.8 mmol/L (3.5-5.1)
[2019-09-05] MEDS: ENOXAPARIN 100 MG/ML SYR SQ SCH (08:53)
[2019-09-05] MEDS: predniSONE 5 MG TAB PO SCH (08:54)
[2019-09-05] MEDS: NICOTINE 21 MG/PAT TD SCH (08:54)
[2019-09-05] MEDS: INSULIN -REGULAR HUMAN 50 UNIT/0.5 ML ML SQ SCH ×4 (08:54→21:20)
[2019-09-05] MEDS: DIVALPROEX NA 125 MG CAP PO SCH ×2 (08:54→21:19)
[2019-09-05] MEDS: MUPIROCIN 2% OINT 22GM TUBE TOP SCH ×2 (08:56→21:00)
[2019-09-05] MEDS: INSULIN GLARGINE 100 UNITS/ML SQ SCH (08:56)
[2019-09-05] MEDS: GLUCERNA SHAKE 237 ML CAN PO SCH ×2 (08:56→21:18)
[2019-09-05] MEDS: KCL 20 MEQ/100 mL IVPB 20 MEQ/100 ML BAG IV SCH ×5 (08:59→21:17)
[2019-09-05] MEDS ORDERED: POTASSIUM CL SA 10 MEQ TAB PO ONE (09:37)
[2019-09-05 09:58] LABS: Blood Morphology Comment NOT SEEN (NOT SEEN); Platelet Estimate ADEQ; Urine White Blood Cell Casts OK
--- NOTE | 2019-09-05 14:40 | P.PN ---
Subjective Date of Service: 09/05/19 Primary Care Provider: unknown Chief Complaint: Respiratory failure ruiz virus infection, and renal failure DVT Subjective: Improving Physical Examination - Vital Signs Temperature: 98.3 F Blood Pressure: 97/54 Pulse: 84 Respirations: 20 Pulse Ox (%): 98 - Physical Exam General: Alert, Cooperative HEENT: Atraumatic Neck: Supple Respiratory: Clear to auscultation bilaterally, Normal air movement Cardiovascular: Normal pulses Neurological: Normal speech, Normal tone, Normal affect - Studies Medications List Reviewed: Yes Assessment & Plan Discharge Plan: Other (Home with home health) Plan to discharge in: 72 Hours Physician Review Additional Text: Assessment Acute respiratory failure complicated with abdominal distention and poor respir atory effort with noted ileus complicated with positive COVID 19 Acute on chronic renal failure stage II with tubular necrosis secondary to traumatic rhabdomyolysis DVT Elevated aminotransferase levels with noted fatty liver Mechanical fall Diabetes mellitus type 2, uncontrolled Hypertension Schizophrenia Left knee abrasion and effusion Nasal abrasion secondary from BIPAP mask Plan Acute respiratory failure complicated abdominal distension and poor respiratory effort with noted ileus complicated with positive COVID 19: Patient continues to improve. Patient now on room air. Continue supportive care. Nephrology continues IV fluids. Sodium level improved. Encourage oral intake, incentive spirometer. Encourage ambulation. Anticipate home with home health and physical therapy in the next 3 days. If still very weak will need to consider skilled placement. Will discuss with family. Acute right lower extremity DVT involving common femoral/proximal portion of femoral vein: Patient on Lovenox at this time. Continue monitor closely. Acute on chronic renal failure stage 2 with tubular necrosis secondary to traumatic rhabdomyolysis with hypernatremia: Continue with Nephrology recommendations. Continue with IV fluids. Encourage oral intake. Monitor levels closely. Elevated aminotransferase levels with noted fatty liver: Liver ultrasound shows fatty liver. Will need to monitor lab. Liver function back to baseline. Mechanical fall: Patient requires physical therapy but this is very difficult since the patient is positive for COVID. Encourage ambulation. Consider home health and physical therapy at discharge or skilled placement. Diabetes mellitus type 2, uncontrolled: Continue to adjust basal insulin for better control. Blood sugar improved. May need to adjust basal insulin if this continues to decline.. Hypertension: Continue monitor closely. Will consider medication scheduled if blood pressure remains elevated. Schizophrenia: Continue home medication Left knee abrasion and effusion: Will have Bactroban applied to affected area and continue to monitor patient's me. Patient also to work with physical therapy. Nasal abrasion secondary from BIPAP mask: Will apply Bactroban ointment. Will monitor closely. Time Spent Managing Pts Care (In Minutes): 55
[2019-09-05] MEDS: RISPERIDONE 1 MG TABLET PO SCH (21:17)
[2019-09-05] MEDS: LITHIUM CARBONATE 300 MG TAB PO SCH (21:20)
--- NOTE | 2019-09-05 23:29 | P.PN ---
Subjective Date of Service: 09/06/19 Primary Care Provider: unknown Chief Complaint: Respiratory failure ruiz virus infection, and renal failure DVT Pt now on 2l nasal canula. Still not tolerate much po intake per nurse. Otherwise doing ok Physical Examination - Vital Signs Temperature: 96.4 F Blood Pressure: 113/71 Pulse: 86 Respirations: 16 Pulse Ox (%): 95 - Studies Medications List Reviewed: Yes Assessment & Plan - Problems (Diagnosis) (1) ARF (acute renal failure) with tubular necrosis Current Visit: Yes Status: Acute (2) Rhabdomyolysis Current Visit: Yes Status: Acute Qualifiers: Encounter type: initial encounter (3) Diabetes mellitus type II, uncontrolled Onset Date: 06/24/14 Current Visit: No Status: Acute (4) Fall Onset Date: 06/24/14 Current Visit: No Status: Acute Plan: Hypernatemia 2/2 deficit free water intake [place] level wnl. Urine osmolality and urine electrolyte wnl Agree with d5w @ 150cc/h. Push oral fluids Recheck bmp later to assess titration of gtt JULIANNA improving Continue to monitor Avoid nephrotoxins Rhabdomylysis; resolved Most likely 2.2 viral syndrome and being obese with prolonged immobility Hypokalemia 2/2 diuresis; resolved Elevated INR on heparin; resolved Respiratory alkalosis with metabolic acidosis; resolved. Will continue to follow
--- NOTE | 2019-09-05 23:37 | P.PN ---
Subjective Date of Service: 09/06/19 Primary Care Provider: unknown Chief Complaint: Respiratory failure ruiz virus infection, and renal failure DVT Pt now on 2l nasal canula. Still not tolerate much po intake per nurse. Otherwise doing ok Review of Systems General: Unremarkable Eyes: Unremarkable ENT: Unremarkable Respiratory: Shortness of Breath Cardiovascular: Unremarkable Gastrointestinal: Unremarkable Genitourinary: Unremarkable Integumentary: Unremarkable Physical Examination - Vital Signs Temperature: 96.4 F Blood Pressure: 113/71 Pulse: 86 Respirations: 16 Pulse Ox (%): 95 - Physical Exam General: Alert, In no apparent distress HEENT: Atraumatic, PERRLA, EOMI Neck: Supple, JVD not distended Respiratory: Clear to auscultation bilaterally, Normal air movement Cardiovascular: Regular rate/rhythm, Normal S1 S2 Capillary refill: <2 Seconds Gastrointestinal: Normal bowel sounds, No tenderness Musculoskeletal: No tenderness Integumentary: No rashes Neurological: Normal speech, Normal tone, Normal affect - Studies Medications List Reviewed: Yes Assessment & Plan - Problems (Diagnosis) (1) ARF (acute renal failure) with tubular necrosis Current Visit: Yes Status: Acute (2) Rhabdomyolysis Current Visit: Yes Status: Acute Qualifiers: Encounter type: initial encounter (3) Diabetes mellitus type II, uncontrolled Onset Date: 06/24/14 Current Visit: No Status: Acute (4) Fall Onset Date: 06/24/14 Current Visit: No Status: Acute Plan: Hypernatemia 2/2 deficit free water intake Agree with d5w @ 150cc/h. Pt no longer npo. Will encourage to increase oral fluid so as to decrease IV requirement Recheck bmp later to assess titration of gtt JULIANNA improving Continue to monitor Avoid nephrotoxins Rhabdomylysis; resolved Most likely 2.2 viral syndrome and being obese with prolonged immobility Hypokalemia 2/2 diuresis; resolved Elevated INR on heparin; resolved Respiratory alkalosis with metabolic acidosis; resolved. Will continue to follow Physician Review: Patient Assessed, Agree with Above Assessment and Plan
--- NOTE | 2019-09-05 23:40 | P.PN ---
Subjective Date of Service: 09/03/19 Primary Care Provider: unknown Chief Complaint: Respiratory failure ruiz virus infection, and renal failure DVT No new changes Review of Systems General: Unremarkable Eyes: Unremarkable ENT: Unremarkable Respiratory: Shortness of Breath Cardiovascular: Unremarkable Gastrointestinal: Unremarkable Genitourinary: Unremarkable Musculoskeletal: Unremarkable Integumentary: Unremarkable Neurological: Unremarkable Physical Examination - Vital Signs Temperature: 96.4 F Blood Pressure: 113/71 Pulse: 86 Respirations: 16 Pulse Ox (%): 95 - Physical Exam General: Alert, Oriented x3 HEENT: Atraumatic, Normocephalic, PERRLA Respiratory: Diminished Cardiovascular: Edema Capillary refill: <2 Seconds Gastrointestinal: Normal bowel sounds Musculoskeletal: No clubbing Integumentary: No breakdown Neurological: Normal gait - Studies Medications List Reviewed: Yes Assessment & Plan - Problems (Diagnosis) (1) ARF (acute renal failure) with tubular necrosis Current Visit: Yes Status: Acute (2) Rhabdomyolysis Current Visit: Yes Status: Acute Qualifiers: Encounter type: initial encounter (3) Diabetes mellitus type II, uncontrolled Onset Date: 06/24/14 Current Visit: No Status: Acute (4) Fall Onset Date: 06/24/14 Current Visit: No Status: Acute Plan: Hypernatemia 2/2 deficit free water intake C/w d5w @ 150cc/h. Pt no longer npo. Will encourage to increase oral fluid so as to decrease IV requirement Recheck bmp later to assess titration of gtt JULIANNA improving Continue to monitor Avoid nephrotoxins Rhabdomylysis; resolved Most likely 2.2 viral syndrome and being obese with prolonged immobility Hypokalemia 2/2 diuresis; resolved Elevated INR on heparin; resolved Respiratory alkalosis with metabolic acidosis; resolved. Will continue to follow
[2019-09-06] MEDS: D5W 1,000 ML IV SCH ×5 (01:35→16:22)
[2019-09-06 04:40] LABS: Magnesium 1.8 mg/dL (1.8-2.4); Potassium 3.1 mmol/L (3.5-5.1)
[2019-09-06] MEDS ORDERED: MAGNESIUM SULFATE 1 gm IVPB 1 GM/100 ML BAG IV ONE (05:21)
[2019-09-06] MEDS: KCL 20 MEQ/100 mL IVPB 20 MEQ/100 ML BAG IV SCH ×3 (08:43→22:36)
[2019-09-06] MEDS: DIVALPROEX NA 125 MG CAP PO SCH ×2 (08:44→20:07)
[2019-09-06] MEDS: predniSONE 5 MG TAB PO SCH (08:44)
[2019-09-06] MEDS: NICOTINE 21 MG/PAT TD SCH (08:44)
[2019-09-06] MEDS: INSULIN GLARGINE 100 UNITS/ML SQ SCH (08:45)
[2019-09-06] MEDS: MUPIROCIN 2% OINT 22GM TUBE TOP SCH ×2 (08:45→20:08)
[2019-09-06] MEDS: ENOXAPARIN 100 MG/ML SYR SQ SCH (08:45)
[2019-09-06] MEDS: INSULIN -REGULAR HUMAN 50 UNIT/0.5 ML ML SQ SCH ×4 (08:47→20:07)
[2019-09-06] MEDS: GLUCERNA SHAKE 237 ML CAN PO SCH ×2 (08:47→20:08)
[2019-09-06 15:04] LABS: Absolute Lymphocytes (CBC) 1.3 K/uL (0.7-4.9); Hematocrit 35.3 % (39.6-49.0); Lymphocytes % 5.3 % (15.3-44.8); MPV 10.6 fL (7.6-11.3); RBC Red Blood Cell Count 3.91 M/uL (4.33-5.43)
--- NOTE | 2019-09-06 15:16 | RAD REPORT ---
EXAM DESCRIPTION: RAD - Chest Single View - 09/06/2019 3:01 pm CLINICAL HISTORY: sob Chest pain. COMPARISON: Abdomen 1 View (KUB) dated 08/29/2019; Abdomen 1 View (KUB) dated 08/28/2019; Abdomen 1 View (KUB) dated 08/27/2019; Abdomen 1 View (KUB) dated 08/26/2019 FINDINGS: Portable technique limits examination quality. The lungs are underinflated resulting in vascular crowding. The heart is normal in size. No displaced fractures. IMPRESSION: Underinflated lungs.
[2019-09-06 15:17] LABS: Albumin 2.2 g/dL (3.4-5.0); Bilirubin Total 1.2 mg/dL (0.2-1.0); Potassium 3.4 mmol/L (3.5-5.1); Protein, Total 6.4 g/dL (6.4-8.2); Troponin I 0.02 ng/mL (0.0-0.045)
[2019-09-06 16:43] LABS: Arterial Blood Carboxyhemoglob 1.8 % (0-1.5); Blood Gas Oxyhemoglobin 94.6 % (94-97); Blood O2 Saturation 97.2 % (92-98.5)
[2019-09-06] MEDS: Ringers Lactate 1,000 ML IV SCH (17:44)
--- NOTE | 2019-09-06 18:27 | P.PN ---
Subjective Date of Service: 09/06/19 Primary Care Provider: unknown Chief Complaint: Respiratory failure ruiz virus infection, and renal failure DVT Subjective: Other (Patient doing well early this morning. Then around after lunchtime nurses were transferring patient. Upon transfer patient became very shaky and unsteady. Patient had riders. Patient was slightly hypoxic for short time. Then recovered.) Physical Examination - Vital Signs Temperature: 96.4 F Blood Pressure: 113/71 Pulse: 86 Respirations: 16 Pulse Ox (%): 95 - Physical Exam General: Alert, In no apparent distress, Cooperative HEENT: Atraumatic Neck: Supple Respiratory: Clear to auscultation bilaterally Cardiovascular: Normal pulses Gastrointestinal: Normal bowel sounds Neurological: Normal speech, Normal strength at 5/5 x4 extr, Normal tone, Normal affect - Studies Medications List Reviewed: Yes Assessment & Plan Discharge Plan: Home Plan to discharge in: 48 Hours Physician Review Additional Text: Assessment Acute respiratory failure complicated with abdominal distention and poor respiratory effort with noted ileus complicated with positive COVID 19 Acute on chronic renal failure stage II with tubular necrosis secondary to traumatic rhabdomyolysis DVT Elevated aminotransferase levels with noted fatty liver Mechanical fall Diabetes mellitus type 2, uncontrolled Hypertension Schizophrenia Left knee abrasion and effusion Nasal abrasion secondary from BIPAP mask Plan Acute respiratory failure complicated abdominal distension and poor respiratory effort with noted ileus complicated with positive COVID 19: Will monitor closely. Patient likely hypoxic upon transfer. White count elevated. Will recheck CBC later today. If patient has another episode of riders will consider CT head. Will monitor closely. Continue to ambulate but with precaution. Patient likely require skilled placement a prefers to go home. Acute right lower extremity DVT involving common femoral/proximal portion of femoral vein: Patient on Lovenox at this time. Continue monitor closely. Acute on chronic renal failure stage 2 with tubular necrosis secondary to traumatic rhabdomyolysis with hypernatremia: Continue with Nephrology recommendations. Nephrology to adjust IV fluids. Elevated aminotransferase levels with noted fatty liver: Liver ultrasound shows fatty liver. Will need to monitor lab. Liver function back to baseline. Mechanical fall: Patient requires physical therapy but this is very difficult since the patient is positive for COVID. Encourage ambulation. Consider home health and physical therapy at discharge or skilled placement. Diabetes mellitus type 2, uncontrolled: Continue to adjust basal insulin for better control. Blood sugar improved. May need to adjust basal insulin if this continues to decline.. Hypertension: Continue monitor closely. Will consider medication scheduled if blood pressure remains elevated. Schizophrenia: Continue home medication Left knee abrasion and effusion: Will have Bactroban applied to affected area and continue to monitor patient's me. Patient also to work with physical therapy. Nasal abrasion secondary from BIPAP mask: Will apply Bactroban ointment. Will monitor closely. Time Spent Managing Pts Care (In Minutes): 55
[2019-09-06] MEDS: LITHIUM CARBONATE 300 MG TAB PO SCH (20:07)
[2019-09-06] MEDS: RISPERIDONE 1 MG TABLET PO SCH (20:07)
[2019-09-06 21:20] LABS: Absolute Lymphocytes (CBC) 1.4 K/uL (0.7-4.9); Basophils % 1.3 % (0-1.3); Hematocrit 33.6 % (39.6-49.0); Lymphocytes % 6.2 % (15.3-44.8); MPV 10.6 fL (7.6-11.3); RBC Red Blood Cell Count 3.76 M/uL (4.33-5.43)
[2019-09-06] MEDS: POTASSIUM 25 MEQ EFFERV TAB PO ONE ×2 (21:43→22:09)
[2019-09-06] MEDS ORDERED: KCL 20 MEQ/100 mL IVPB 20 MEQ/100 ML BAG IV SCH (22:00)
[2019-09-06 22:20] LABS: Blood Morphology Comment NOT SEEN (NOT SEEN); Platelet Estimate ADEQ
[2019-09-07] MEDS: KCL 20 MEQ/100 mL IVPB 20 MEQ/100 ML BAG IV SCH (00:33)
[2019-09-07 04:43] LABS: Magnesium 1.9 mg/dL (1.8-2.4); Potassium 3.5 mmol/L (3.5-5.1)
[2019-09-07] MEDS: Ringers Lactate 1,000 ML IV SCH (04:58)
[2019-09-07] MEDS ORDERED: CEFTRIAXONE 1 GM/NS 50 ML 1 GM/50 ML BAG IV ONE (05:48)
[2019-09-07] MEDS ORDERED: AZITHROMYCIN IV 250 MG in NA CHLORIDE 0.9% 250 ML IVPB ONE (05:50)
[2019-09-07] MEDS ORDERED: KCL 20 MEQ/100 mL IVPB 20 MEQ/100 ML BAG IV SCH (06:00)
[2019-09-07] MEDS ORDERED: NA CHLORIDE 0.9% 250 ML ONE (06:16)
[2019-09-07] MEDS ORDERED: AZITHROMYCIN 500 MG INJ IVPB ONE (06:34)
[2019-09-07] MEDS ORDERED: CEFTRIAXONE/SWI 1gm 1 GM/10 ML SYR IV ONE (07:00)
[2019-09-07] MEDS: INSULIN -REGULAR HUMAN 50 UNIT/0.5 ML ML SQ SCH ×4 (07:30→21:00)
[2019-09-07] MEDS: DIVALPROEX NA 125 MG CAP PO SCH ×2 (08:24→21:27)
[2019-09-07] MEDS: ENOXAPARIN 100 MG/ML SYR SQ SCH (08:24)
[2019-09-07] MEDS: NICOTINE 21 MG/PAT TD SCH (08:24)
[2019-09-07] MEDS: predniSONE 5 MG TAB PO SCH (08:25)
[2019-09-07] MEDS: GLUCERNA SHAKE 237 ML CAN PO SCH ×2 (08:25→21:28)
[2019-09-07] MEDS: MUPIROCIN 2% OINT 22GM TUBE TOP SCH ×2 (08:26→21:00)
[2019-09-07] MEDS: INSULIN GLARGINE 100 UNITS/ML SQ SCH (08:46)
[2019-09-07] MEDS ORDERED: NA CHLORIDE 0.9% 500 ML IV PRN (08:53)
[2019-09-07] MEDS ORDERED: CEFEPIME 1 GM/VIAL IV SCH (09:14)
[2019-09-07] MEDS: NA CHLORIDE 0.9% 1,000 ML IV SCH ×2 (09:53→23:34)
[2019-09-07 10:00] LABS: Basophils % 0.1 % (0-1.3); Hematocrit 25.2 % (39.6-49.0); Lymphocytes % 5.7 % (15.3-44.8); MPV 10.3 fL (7.6-11.3); RBC Red Blood Cell Count 2.86 M/uL (4.33-5.43)
[2019-09-07 10:08] LABS: Albumin 1.7 g/dL (3.4-5.0); Bilirubin Total 0.7 mg/dL (0.2-1.0); Magnesium 1.9 mg/dL (1.8-2.4); Potassium 3.4 mmol/L (3.5-5.1); Protein, Total 5.3 g/dL (6.4-8.2)
[2019-09-07] MEDS: CEFEPIME/SWI 1gm 10 ML IV SCH ×2 (10:51→20:47)
[2019-09-07] MEDS: VANCOMYCIN 1.5 GM in NA CHLORIDE 0.9% 500 ML IVPB SCH (10:52)
[2019-09-07] MEDS: FLUCONAZOLE 400 MG IVPB 400 MG/200 ML BAG IV SCH ×2 (12:51→13:00)
--- NOTE | 2019-09-07 18:57 | P.PN ---
Subjective Date of Service: 09/07/19 Primary Care Provider: unknown Chief Complaint: Respiratory failure ruiz virus infection, and renal failure DVT Subjective: Other (Patient was hypotensive this morning. Patient got IV fluid bolus.) Physical Examination - Vital Signs Temperature: 98.6 F Blood Pressure: 116/71 Pulse: 91 Respirations: 20 Pulse Ox (%): 95 - Physical Exam General: Alert HEENT: Atraumatic Neck: Supple Respiratory: Clear to auscultation bilaterally, Normal air movement Cardiovascular: Normal pulses, Regular rate/rhythm Neurological: Normal speech, Normal strength at 5/5 x4 extr, Normal tone, Normal affect - Studies Medications List Reviewed: Yes Assessment & Plan Discharge Plan: LTAC Plan to discharge in: 48 Hours Physician Review Additional Text: Assessment Acute respiratory failure complicated with abdominal distention and poor respiratory effort with noted ileus complicated with positive COVID 19 Acute on chronic renal failure stage II with tubular necrosis secondary to traumatic rhabdomyolysis DVT Elevated aminotransferase levels with noted fatty liver Mechanical fall Diabetes mellitus type 2, uncontrolled Hypertension Schizophrenia Left knee abrasion and effusion Nasal abrasion secondary from BIPAP mask Plan Acute respiratory failure complicated abdominal distension and poor respiratory effort with noted ileus complicated with positive COVID 19: Patient with low blood pressure. Suspect fungal infection or sepsis. Case discussed with pulmonology and nephrology. Patient given IV fluids. Pulmonology to add antifungal. Case reviewed with social worker school and case management. Will pursue long-term acute care facility placement as the patient will require further evaluation and intervention. Acute right lower extremity DVT involving common femoral/proximal portion of femoral vein: Patient on Lovenox at this time. Continue monitor closely. Acute on chronic renal failure stage 2 with tubular necrosis secondary to traumatic rhabdomyolysis with hypernatremia: Continue with Nephrology recommendations. Nephrology to adjust IV fluids. Elevated aminotransferase levels with noted fatty liver: Liver ultrasound shows fatty liver. Will need to monitor lab. Liver function back to baseline. Mechanical fall: Patient requires physical therapy but this is very difficult since the patient is positive for COVID. Encourage ambulation. Consider home health and physical therapy at discharge or skilled placement. Diabetes mellitus type 2, uncontrolled: Continue to adjust basal insulin for better control. Blood sugar improved. May need to adjust basal insulin if this continues to decline.. Hypertension: Continue monitor closely. Will consider medication scheduled if blood pressure remains elevated. Schizophrenia: Continue home medication Left knee abrasion and effusion: Will have Bactroban applied to affected area and continue to monitor patient's me. Patient also to work with physical therapy. Nasal abrasion secondary from BIPAP mask: Will apply Bactroban ointment. Will monitor closely. Time Spent Managing Pts Care (In Minutes): 55
[2019-09-07] MEDS: RISPERIDONE 1 MG TABLET PO SCH (20:48)
[2019-09-07] MEDS: predniSONE 10 MG TAB PO SCH (20:49)
[2019-09-07] MEDS: LITHIUM CARBONATE 300 MG TAB PO SCH (20:50)
[2019-09-07] MEDS: JUVEN PACKET PO SCH (21:01)
[2019-09-08 04:40] LABS: Magnesium 2.2 mg/dL (1.8-2.4); Potassium 3.5 mmol/L (3.5-5.1)
[2019-09-08] MEDS ORDERED: POTASSIUM 25 MEQ EFFERV TAB PO ONE (05:03)
[2019-09-08] MEDS: NA CHLORIDE 0.9% 1,000 ML IV SCH ×2 (06:00→08:37)
[2019-09-08] MEDS: CEFEPIME/SWI 1gm 10 ML IV SCH ×2 (08:27→20:22)
[2019-09-08] MEDS: NICOTINE 21 MG/PAT TD SCH (08:27)
[2019-09-08] MEDS: ENOXAPARIN 100 MG/ML SYR SQ SCH (08:28)
[2019-09-08] MEDS: DIVALPROEX NA 125 MG CAP PO SCH ×2 (08:28→20:24)
[2019-09-08] MEDS: predniSONE 10 MG TAB PO SCH ×2 (08:28→20:23)
[2019-09-08] MEDS: GLUCERNA SHAKE 237 ML CAN PO SCH ×2 (08:29→20:26)
[2019-09-08] MEDS: JUVEN PACKET PO SCH ×2 (08:29→20:26)
[2019-09-08] MEDS: MUPIROCIN 2% OINT 22GM TUBE TOP SCH ×2 (08:29→23:45)
[2019-09-08] MEDS: INSULIN -REGULAR HUMAN 50 UNIT/0.5 ML ML SQ SCH ×4 (08:38→21:00)
[2019-09-08] MEDS: D5W 1,000 ML IV SCH ×2 (10:23→23:20)
[2019-09-08] MEDS: VANCOMYCIN 1.5 GM in NA CHLORIDE 0.9% 500 ML IVPB SCH (10:23)
--- NOTE | 2019-09-08 11:39 | P.PN ---
Subjective Date of Service: 09/14/19 Primary Care Provider: unknown Chief Complaint: Wound infection Patient is still very weak is developed larger wound patient was hypotensive yesterday urine culture shows 3+ gram-negative rods blood cultures are negative Physical Examination - Vital Signs Temperature: 97.4 F Blood Pressure: 142/71 Pulse: 100 Respirations: 20 Pulse Ox (%): 99 - Studies Medications List Reviewed: Yes Assessment & Plan - Problems (Diagnosis) (1) DVT (deep venous thrombosis) Status: Acute Plan: Patient is on Lovenox schedule for wound debridement once is stable can be waste/materials exchange specialist to p.o. Eliquis 5 mg twice a day Qualifiers: DVT location: lower extremity Affected thrombotic vein of extremity: femoral (2) Hypernatremia Status: Acute Plan: Hypernatremia agree with IV fluids renal function is improving (3) Sepsis Status: Acute Plan: His urine culture is positive may have a wound infection that is causing is elevated white count and low blood pressure patient is on cefepime await cultures blood cultures are negative in you with vancomycin for now schedule for wound debridement vital signs stable oxygenation satisfactory patient is also high risk for fungal infections recommend changing to p.o. Diflucan prognosis poor he still very weak not eating and drinking much Physician Review: Patient Assessed, Agree with Above Assessment and Plan
[2019-09-08 12:15] LABS: C.diff Antigen/Toxin Ag neg : Tox neg (NEG : NEG)
[2019-09-08] MEDS: FLUCONAZOLE 400 MG IVPB 400 MG/200 ML BAG IV SCH (13:39)
--- NOTE | 2019-09-08 14:12 | P.PN ---
Subjective Date of Service: 09/08/19 Primary Care Provider: unknown Chief Complaint: Wound infection Subjective: Other (Patient has improved since yesterday. Nurses noted a large sacral decubitus also noted by wound care.) Physical Examination - Vital Signs Temperature: 97.4 F Blood Pressure: 142/71 Pulse: 100 Respirations: 20 Pulse Ox (%): 99 - Physical Exam General: Alert, In no apparent distress, Cooperative HEENT: Atraumatic Neck: Supple Respiratory: Clear to auscultation bilaterally, Normal air movement Cardiovascular: Normal pulses, Regular rate/rhythm Gastrointestinal: Normal bowel sounds Other Physical/Emotional Findings: Wound care reports: Sacral unstageable pressure ulcer measures 9.4 x 11.3 x 0 and is 100% black/valentino, leathery tissue. Wound edges are irregular and attached. Periwound has erythema present. Wound has a strong odor. Moderate serous drainage. Left knee unstageable pressure ulc er measures 4 x 2 x 0 cm and is 100% black/valentino, leathery tissue. Wound edges are irregular and attached. Periwound is WNL. Small serous drainage. Right cheek unstageable pressure ulcer measures 2 x 0.7 x 0 and is 100% black, hard. Wound edges are irregular and attached. Periwound is WNL. No drainage. Bridge of nose unstageable pressure ulcer measures 1.5 x 1 x 0 cm and is 100% black, hard. Wound edges are irregular and attached. Periwound is WNL. No drainage. Left cheek unstageable pressure ulcer measures 1 x 0.7 x 0 cm and is 100% black, hard. Wound edges are irregular and attached. Periwound is WNL. No drainage. Right heel has a deep tissue injury. Ecchymosis present with no blisters. Skin feels boggy. - Studies Medications List Reviewed: Yes Assessment & Plan Discharge Plan: LTAC Plan to discharge in: 24 Hours Physician Review Additional Text: Assessment UTI, urine culture growing gram-negative rods Sacral unstageable pressure ulcer, left knee unstageable pressure ulcer, right cheek unstageable pressure ulcer, bridge of nose unstageable pressure ulcer, left cheek unstageable pressure ulcer Acute respiratory failure complicated with abdominal distention and poor respiratory effort with noted ileus complicated with positive COVID 19 Acute on chronic renal failure stage 3 with tubular necrosis secondary to traumatic rhabdomyolysis Acute right lower extremity DVT involving common femoral/proximal portion of femoral vein Elevated aminotransferase levels with noted fatty liver Mechanical fall Diabetes mellitus type 2, uncontrolled Hypertension Schizophrenia Left knee abrasion and effusion Nasal abrasion secondary from BIPAP mask Plan UTI, urine culture growing gram-negative rods: Currently on antibiotic coverage. Await culture results. Will deescalate antibiotics once culture results have resulted. Due to multiple issues will pursue long-term acute care facility placement. Patient also with pressure ulcer. This will require surgical debridement. Case discussed with surgery. Will plan for tomorrow. Case also discuss with nephrology and pulmonology. IV fluids adjusted. Await culture results. Case management to continue to work on placement. Sacral unstageable pressure ulcer, left knee unstageable pressure ulcer, right cheek unstageable pressure ulcer, bridge of nose unstageable pressure ulcer, left cheek unstageable pressure ulcer: Wound care to further address. Case discussed with surgery. Patient will have sacral pressure ulcer debrided. Keep NPO after midnight Hypernatremia with acute on chronic renal failure stage 3 with tube early necrosis secondary to traumatic rhabdomyolysis: Nephrology continues to adjust fluids. Acute respiratory failure complicated abdominal distension and poor respiratory effort with noted ileus complicated with positive COVID 19: Patient has done well with his COVID 19 infection. Patient requires minimal oxygen. Acute right lower extremity DVT involving common femoral/proximal portion of femoral vein: Patient on Lovenox at this time. Will switch over to oral medication after surgery Elevated aminotransferase levels with noted fatty liver: Liver ultrasound shows fatty liver. Will need to monitor lab. Liver function back to baseline. Mechanical fall: Patient requires physical therapy but this is very difficult since the patient is positive for COVID. Encourage ambulation. Will pursue long-term acute care facility placement Diabetes mellitus type 2, uncontrolled: Continue sliding scale Hypertension: Continue monitor closely. Will consider medication scheduled if blood pressure remains elevated. Schizophrenia: Continue home medication. Time Spent Managing Pts Care (In Minutes): 55
[2019-09-08] MEDS: ACETAMINOPHEN 500 MG TAB PO PRN (18:47)
[2019-09-08] MEDS: RISPERIDONE 1 MG TABLET PO SCH (20:23)
[2019-09-08] MEDS: MEDIHONEY 44 ML TOPICAL TUBE TOP SCH (20:23)
[2019-09-08] MEDS: LITHIUM CARBONATE 300 MG TAB PO SCH (20:25)
[2019-09-09] MEDS: D5W 1,000 ML IV SCH ×4 (02:59→21:51)
[2019-09-09 06:03] LABS: Absolute Lymphocytes (CBC) 0.7 K/uL (0.7-4.9); Basophils % 0.4 % (0-1.3); Hematocrit 26.3 % (39.6-49.0); Lymphocytes % 8.5 % (15.3-44.8); RBC Red Blood Cell Count 2.88 M/uL (4.33-5.43)
[2019-09-09 06:51] LABS: Magnesium 2.3 mg/dL (1.8-2.4); Potassium 3.6 mmol/L (3.5-5.1)
[2019-09-09] MEDS: INSULIN -REGULAR HUMAN 50 UNIT/0.5 ML ML SQ SCH ×4 (07:30→21:00)
[2019-09-09] MEDS ORDERED: KCL 20 MEQ/100 mL IVPB 20 MEQ/100 ML BAG IV SCH (08:00)
[2019-09-09] MEDS: GLUCERNA SHAKE 237 ML CAN PO SCH ×2 (08:14→21:52)
[2019-09-09] MEDS: JUVEN PACKET PO SCH ×2 (08:14→21:52)
[2019-09-09] MEDS: MEDIHONEY 44 ML TOPICAL TUBE TOP SCH (08:15)
[2019-09-09] MEDS: ENOXAPARIN 100 MG/ML SYR SQ SCH (08:15)
[2019-09-09] MEDS: MUPIROCIN 2% OINT 22GM TUBE TOP SCH ×3 (08:16→21:53)
[2019-09-09] MEDS ORDERED: NA CHLORIDE 0.9% 1,000 ML ONE (08:29)
[2019-09-09] MEDS: predniSONE 10 MG TAB PO SCH ×2 (09:00→21:52)
[2019-09-09] MEDS ORDERED: FENTANYL CITR 100 MCG/2 ML ONE (09:30)
[2019-09-09] MEDS ORDERED: MIDAZOLAM HCL 2 MG/2 ML INJ ONE (09:30)
[2019-09-09] MEDS ORDERED: LIDOCAINE 1% MPF 5 ML VIAL ONE (09:30)
[2019-09-09] MEDS ORDERED: ROCURONIUM 50 MG/5 ML VIAL IV ONE (09:30)
[2019-09-09] MEDS ORDERED: propofoL 200 MG/20 ML VIAL IV ONE (09:30)
[2019-09-09] MEDS ORDERED: COLLAGENASE 30 GM OINTMENT TOP ONE (09:35)
[2019-09-09] MEDS: BUPIVACAINE 0.5% PF 10 ML VIAL ONE ×2 (09:35→10:25)
[2019-09-09] MEDS ORDERED: SUCCINYLCHOLINE 20 MG/ML (10 ML) IV ONE (09:42)
--- NOTE | 2019-09-09 09:52 | PREOPCON ---
Date of Consultation: 09/08/2019 Reason For Consultation: Sacral decubitus and the left knee decubitus. History Of Present Illness: The patient is a 59-year-old gentleman with multiple medical problems, a dmitted approximately two and half to three weeks ago. He was admitted with fall and weakness and wa s found to be COVID positive, since then has developed an acute DVT on anticoagulation. He was being medically optimized for transfer to an LTAC for continued care for UTI and other medical issues. On evaluation, patient was found to have a sacral decubitus yesterday by the wound care team and I was consulted for debridement. He is awake, alert. No sore throat, runny nose, cough, headaches, or diz ziness. No chest pain. No fever or chills at this time. Review of Systems: Otherwise unremarkable. Past Medical History: Significant for diabetes, schizophrenia. Past Surgical History: The patient denies surgical history. Allergies: NONE. Social History: The patient does not smoke or drink alcohol. Family History: Noncontributory. Physical Examination: Vital Signs: Stable. He is afebrile. General: He is awake, alert, confused. Head and Neck: No masses. Chest: Clear. Heart: S1 and S2. Abdomen: Soft. Extremities: Neurovascularly intact. Diminished dorsalis pedis and posterior tibial pulses. Left k nee, patient has approximately a 3 x 4 cm eschar, soft, kind of greenish discoloration and leathery. The patient also had approximately a 9 x 11 cm sacral decubitus with some drainage underneath it and necrotic tissue, the rim edge has mild erythema. Assessment: Sacral decubitus and left knee wound. Recommendations: Surgical debridement. The patient kindly understands the risks, benefits, and alte rnatives and agrees to procedure. Continue antibiotics. We will check the cultures and adjust antib iotics accordingly and will institute local wound care. /MODL Voice ID: [id number] Report ID: [id number]
[2019-09-09] MEDS: VANCOMYCIN 1.5 GM in NA CHLORIDE 0.9% 500 ML IVPB SCH (10:00)
[2019-09-09] MEDS: CEFEPIME/SWI 1gm 10 ML IV SCH (10:15)
[2019-09-09] MEDS ORDERED: Phenylephrine HCl 10 MG/ML 1 ML VIAL ONE (10:24)
[2019-09-09] MEDS ORDERED: NS 0.9% VIAL 10 ML ONE (10:24)
--- NOTE | 2019-09-09 11:08 | P.OP ---
Preoperative diagnosis: Sacral decubitus and left knee wound Postoperative diagnosis: same Primary procedure: Excisional debridement sacral decubitus 11 x 9 cm to sq Secondary procedure: Excisional debridement left knee wound 3 x 4 cm Anesthesia: General Estimated blood loss: min Specimen: C&S, and debrdement tissue Findings: as above Complications: None Transferred to: Recovery Room Condition: Good
[2019-09-09] MEDS: Meropenem 1,000 MG in NA CHLORIDE 0.9% 100 ML IV SCH ×2 (11:30→17:00)
[2019-09-09] MEDS: HYDROMORPHONE HCL 1 MG/ML INJ ONE ×3 (11:30→11:42)
[2019-09-09] MEDS: ONDANSETRON 4 MG/2 ML VIAL ONE ×2 (11:30→11:41)
[2019-09-09] MEDS: AMILORIDE HCL 5 MG TABLET PO SCH (12:02)
[2019-09-09] MEDS: NICOTINE 21 MG/PAT TD SCH (12:03)
[2019-09-09] MEDS: DIVALPROEX NA 125 MG CAP PO SCH ×2 (12:03→21:53)
[2019-09-09] MEDS: FLUCONAZOLE 400 MG IVPB 400 MG/200 ML BAG IV SCH (12:53)
[2019-09-09] MEDS: ACETAMINOPHEN 500 MG TAB PO PRN (13:03)
[2019-09-09] MEDS: DOXYCYCLINE 100 MG CAP PO SCH (17:09)
--- NOTE | 2019-09-09 17:24 | P.PN ---
Subjective Date of Service: 09/09/19 Primary Care Provider: unknown Chief Complaint: Wound infection Subjective: Other (Patient reports improvement. Patient status post surgery.) Physical Examination - Vital Signs Temperature: 97 F Blood Pressure: 146/69 Pulse: 76 Respirations: 17 Pulse Ox (%): 96 - Physical Exam General: Alert, In no apparent distress, Oriented x3, Cooperative HEENT: Atraumatic Neck: Supple Respiratory: Clear to auscultation bilaterally Cardiovascular: Normal pulses, Regular rate/rhythm Gastrointestinal: Normal bowel sounds Neurological: Normal speech, Normal strength at 5/5 x4 extr, Normal tone, Normal affect Other Physical/Emotional Findings: Wound care reports: Sacral unstageable pressure ulcer measures 9.4 x 11.3 x 0 and is 100% black/valentino, leathery tissue. Wound edges are irregular and attached. Periwound has erythema present. Wound has a strong odor. Moderate serous drainage. Left knee unstageable pressure ulcer measures 4 x 2 x 0 cm and is 100% black/valentino, leathery tissue. Wound edges are irregular and attached. Periwound is WNL. Small serous drainage. Right cheek unstageable pressure ulcer measures 2 x 0.7 x 0 and is 100% black, hard. Wound edges are irregular and attached. Periwound is WNL. No drainage. Bridge of nose unstageable pressure ulcer measures 1.5 x 1 x 0 cm and is 100% black, hard. Wound edges are irregular and attached. Periwound is WNL. No drainage. Left cheek unstageable pressure ulcer measures 1 x 0.7 x 0 cm and is 100% black, hard. Wound edges are irregular and attached. Periwound is WNL. No drainage. Right heel has a deep tissue injury. Ecchymosis present with no blisters. Skin feels boggy. - Studies Medications List Reviewed: Yes Assessment & Plan Discharge Plan: LTAC Plan to discharge in: 24 Hours Physician Review Additional Text: Assessment UTI, urine culture E coli-ESBL Sacral unstageable pressure ulcer, left knee unstageable pressure ulcer, right cheek unstageable pressure ulcer, bridge of nose unstageable pressure ulcer, left cheek unstageable pressure ulcer Acute respiratory failure complicated with abdominal distention and poor respiratory effort with noted ileus complicated with positive COVID 19 repeat testing shows he is negative for COVID Acute on chronic renal failure stage 3 with tubular necrosis secondary to traumatic rhabdomyolysis Acute right lower extremity DVT involving common femoral/proximal portion of femoral vein Elevated aminotransferase levels with noted fatty liver Mechanical fall Diabetes mellitus type 2, uncontrolled Hypertension Schizophrenia Left knee abrasion and effusion Nasal abrasion secondary from BIPAP mask Plan UTI, urine culture E coli-ESBL: IV antibiotics adjusted. Patient now on IV meropenem. Will continue with antibiotic therapy. Surgical debridement done today. Patient postoperatively doing well. Patient repeat COVID test is negative. Patient has been accepted to long-term acute care facility in [place]. This will likely occur within the next 24 hr. Awaiting approval. Case discussed with nephrology, pulmonology and surgery. Continue IV D5W due to hypernatremia. Continue monitor closely. I will turn the service over to the hospitalist team tomorrow. I will go over plan of care with him. Sacral unstageable pressure ulcer, left knee unstageable pressure ulcer, right cheek unstageable pressure ulcer, bridge of nose unstageable pressure ulcer, left cheek unstageable pressure ulcer status post debridement: Debridement done by surgery. Continue current wound care. Hypernatremia with acute on chronic renal failure stage 3 with tube early necrosis secondary to traumatic rhabdomyolysis: Nephrology continues to adjust fluids. Acute respiratory failure complicated abdominal distension and poor respiratory effort with noted ileus complicated with positive COVID 19 repeat testing shows he is negative for COVID: Patient doing well respiratory correa. Repeat test negative for COVID 19 infection. Patient requires minimal oxygen. Acute right lower extremity DVT involving common femoral/proximal portion of femoral vein: Patient on Lovenox at this time. Will switch over to oral medication after surgery. This can occur tomorrow. Elevated aminotransferase levels with noted fatty liver: Liver ultrasound shows fatty liver. Will need to monitor lab. Liver function back to baseline. Mechanical fall: Patient requires physical therapy but this is very difficult since the patient is positive for COVID. Encourage ambulation. Will pursue long-term acute care facility placement Diabetes mellitus type 2, uncontrolled: Continue sliding scale. Continue to adjust medication Hypertension: Continue monitor closely. Will consider medication scheduled if blood pressure remains elevated. Schizophrenia: Continue home medication. Time Spent Managing Pts Care (In Minutes): 55
--- NOTE | 2019-09-09 17:28 | P.PN ---
Subjective Date of Service: 09/09/19 Primary Care Provider: unknown Chief Complaint: Wound infection More alert today. Conversant. Review of Systems General: Weakness Eyes: Pain, Vision Change, Conjunctivae Inflammation, Eyelid Inflammation, Redness, Other, As per HPI, Unremarkable ENT: Ear Pain, Ear Discharge, Nose Pain, Nose Discharge, Nose Congestion, Mouth Pain, Mouth Swelling, Throat Pain, Throat Swelling, Other, As per HPI, Unremarkable Respiratory: SOB with Excertion Cardiovascular: Unremarkable Gastrointestinal: Unremarkable Genitourinary: Unremarkable Musculoskeletal: Unremarkable Integumentary: Unremarkable Neurological: Unremarkable Physical Examination - Vital Signs Temperature: 97 F Blood Pressure: 146/69 Pulse: 76 Respirations: 17 Pulse Ox (%): 96 - Physical Exam General: Alert, In no apparent distress, Oriented x3 HEENT: Atraumatic, PERRLA, EOMI Neck: Supple, JVD not distended Respiratory: Clear to auscultation bilaterally, Normal air movement Cardiovascular: Regular rate/rhythm, Normal S1 S2 Capillary refill: <2 Seconds Gastrointestinal: Normal bowel sounds, No tenderness Musculoskeletal: No tenderness Integumentary: No rashes Neurological: Normal speech, Normal tone, Normal affect Lymphatics: No axilla or inguinal lymphadenopathy Other Physical/Emotional Findings: Wound care reports: Sacral unstageable pressure ulcer measures 9.4 x 11.3 x 0 and is 100% black/valentino, leathery tissue. Wound edges are irregular and attached. Periwound has erythema present. Wound has a strong odor. Moderate serous drainage. Left knee unstageable pressure ulcer measures 4 x 2 x 0 cm and is 100% black/valentino, leathery tissue. Wound edges are irregular and attached. Periwound is WNL. Small serous drainage. Right cheek unstageable pressure ulcer measures 2 x 0.7 x 0 and is 100% black, hard. Wound edges are irregular and attached. Periwound is WNL. No drainage. Bridge of nose unstageable pressure ulcer measures 1.5 x 1 x 0 cm and is 100% black, hard. Wound edges are irregular and attached. Periwound is WNL. No drainage. Left cheek unstageable pressure ulcer measures 1 x 0.7 x 0 cm and is 100% black, hard. Wound edges are irregular and attached. Periwound is WNL. No drainage. Right heel has a deep tissue injury. Ecchymosis present with no blisters. Skin feels boggy. - Studies Medications List Reviewed: Yes Assessment & Plan - Problems (Diagnosis) (1) ARF (acute renal failure) with tubular necrosis Current Visit: Yes Status: Acute (2) Rhabdomyolysis Current Visit: Yes Status: Acute Qualifiers: Qualified Code(s): T79.6XXA - Traumatic ischemia of muscle, initial encounter (3) Diabetes mellitus type II, uncontrolled Onset Date: 06/24/14 Current Visit: No Status: Acute (4) Fall Onset Date: 06/24/14 Current Visit: No Status: Acute Physician Review: Patient Assessed, Agree with Above Assessment and Plan Physician Review Additional Text: Hypernatemia 2/2 deficit free water intake 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 Will continue to follow
--- NOTE | 2019-09-09 21:12 | OP ---
Date of Procedure: 09/09/2019 Surgeon: Gavino Vargas MD Preoperative Diagnoses: Sacral decubitus and left knee wound. Postoperative Diagnoses: Sacral decubitus and left knee wound. Procedures: Excisional debridement of sacral decubitus 11 x 9 cm to subcutaneous tissue and excision al debridement of left knee wound 3 x 4 cm to subcutaneous tissue. Estimated Blood Loss: Minimal. Specimen: Culture and sensitivity and the debrided tissue. Findings: As above. Anesthesia: General. Complications: None. Disposition: The patient tolerated the procedure in stable condition, taken to Recovery in good gene ral condition. Procedure In Detail: The patient was brought to the OR, placed in supine position, and general anest hesia begun. The patient was prepped and draped in the usual sterile fashion in the right lateral po sition. Marcaine 0.5% was infiltrated locally. Then, sharp dissection utilizing cautery and scissor s was done all the way down to the deep subcutaneous tissue. It was deeper in the center and more stephens perficial on the edges and all the necrotic tissue was debrided. There were cultures done on the nec rotic tissue. Wound was irrigated. Bleeding controlled with cautery and then Santyl wet-to-dry dres sing was applied. On the left knee, a 3 x 4 cm incision was made to excise the necrotic eschar down through the deep subcutaneous tissue and sent to Pathology. Wound irrigated. Bleeding controlled wi th cautery and Santyl dressing applied. The patient awakened, taken to Recovery in good general condition. KATELIN/ABADL Voice ID: [id number] Report ID: [id number]
[2019-09-09] MEDS: RISPERIDONE 1 MG TABLET PO SCH (21:52)
[2019-09-10] MEDS: Meropenem 1,000 MG in NA CHLORIDE 0.9% 100 ML IV SCH ×2 (00:20→08:58)
[2019-09-10] MEDS: ACETAMINOPHEN 500 MG TAB PO PRN ×2 (01:47→06:44)
[2019-09-10 05:49] LABS: Absolute Lymphocytes (CBC) 0.6 K/uL (0.7-4.9); Basophils % 0.4 % (0-1.3); Hematocrit 23.4 % (39.6-49.0); Lymphocytes % 11.5 % (15.3-44.8); MPV 9.9 fL (7.6-11.3); RBC Red Blood Cell Count 2.54 M/uL (4.33-5.43)
[2019-09-10 06:01] LABS: Magnesium 1.8 mg/dL (1.8-2.4)
[2019-09-10] MEDS: D5W 1,000 ML IV SCH (06:05)
[2019-09-10] MEDS: DOXYCYCLINE 100 MG CAP PO SCH (06:05)
[2019-09-10] MEDS ORDERED: MAGNESIUM SULFATE 1 gm IVPB 1 GM/100 ML BAG IV ONE (08:00)
[2019-09-10] MEDS: DIVALPROEX NA 125 MG CAP PO SCH (08:47)
[2019-09-10] MEDS: AMILORIDE HCL 5 MG TABLET PO SCH (08:47)
[2019-09-10] MEDS: ENOXAPARIN 100 MG/ML SYR SQ SCH (08:48)
[2019-09-10] MEDS: GLUCERNA SHAKE 237 ML CAN PO SCH (08:50)
[2019-09-10] MEDS: JUVEN PACKET PO SCH (08:50)
[2019-09-10] MEDS: INSULIN -REGULAR HUMAN 50 UNIT/0.5 ML ML SQ SCH ×2 (08:51→12:03)
[2019-09-10] MEDS: predniSONE 10 MG TAB PO SCH (08:57)
[2019-09-10] MEDS: MUPIROCIN 2% OINT 22GM TUBE TOP SCH (09:00)
[2019-09-10] MEDS: NICOTINE 21 MG/PAT TD SCH (09:02)
[2019-09-10 10:29] VITALS: O2SAT 95
[2019-09-14 07:02] VITALS: BP 143/75; TEMP 97.9
== END 2019-09-10 13:24 | DRG 166 ==
LOC: ER 06:42 → ERHOLD 09:56 → 2ND 10:50 → 3RD-ICU 08-26 12:33 → 4TH 08-29 08:10 → 2ND 09-09 21:07
PROVIDERS: ADMIT Internal Medicine; ATTEND Family Medicine
PROC: 3E0336Z Introduction of Nutritional Substance into Peripheral Vein, Percutaneous Approach (ICD-10-PCS; 2019-08-28)
PROC: 8E0ZXY6 Isolation (ICD-10-PCS; 2019-08-31)
PROC: 0JBP0ZZ Excision of Left Lower Leg Subcutaneous Tissue and Fascia, Open Approach (ICD-10-PCS; 2019-09-09)
PROC: 0JB70ZZ Excision of Back Subcutaneous Tissue and Fascia, Open Approach (ICD-10-PCS; principal; 2019-09-09 11:30)
DX: U07.1 COVID-19 (principal); N17.0 Acute kidney failure with tubular necrosis; J96.01 Acute respiratory failure with hypoxia; J12.89 Other viral pneumonia; A41.89 Other specified sepsis; E87.3 Alkalosis; K56.7 Ileus, unspecified; I82.411 Acute embolism and thrombosis of right femoral vein; E87.2 Acidosis; E87.0 Hyperosmolality and hypernatremia; N39.0 Urinary tract infection, site not specified; T79.6XXA Traumatic ischemia of muscle, initial encounter; W06.XXXA Fall from bed, initial encounter; Z79.899 Other long term (current) drug therapy; R33.9 Retention of urine, unspecified; E11.65 Type 2 diabetes mellitus with hyperglycemia; F20.9 Schizophrenia, unspecified; F17.200 Nicotine dependence, unspecified, uncomplicated; M25.462 Effusion, left knee; S80.212A Abrasion, left knee, initial encounter; I12.9 Hypertensive chronic kidney disease with stage 1 through stage 4 chronic kidney disease, or unspecified chronic kidney disease; E11.22 Type 2 diabetes mellitus with diabetic chronic kidney disease; N18.2 Chronic kidney disease, stage 2 (mild); K76.0 Fatty (change of) liver, not elsewhere classified; E87.6 Hypokalemia; E87.70 Fluid overload, unspecified; R14.0 Abdominal distension (gaseous); K59.8 Other specified functional intestinal disorders; S00.31XA Abrasion of nose, initial encounter; E66.9 Obesity, unspecified; Z68.27 Body mass index [BMI] 27.0-27.9, adult; L89.150 Pressure ulcer of sacral region, unstageable; L89.890 Pressure ulcer of other site, unstageable; L89.810 Pressure ulcer of head, unstageable; L89.616 Pressure-induced deep tissue damage of right heel; R58 Hemorrhage, not elsewhere classified; B96.20 Unspecified Escherichia coli [E. coli] as the cause of diseases classified elsewhere
CPT/HCPCS: 36415; 70450; 71045; 74018; 74176; 76705; 76770; 80048; 80053; 80074; 80076; 80164; 80178; 80202; 80320; 82435; 82550; 82570; 82805; 82947; 83036; 83605; 83615; 83735; 83880; 83935; 84100; 84132; 84145; 84156; 84300; 84443; 84484; 85025; 85379; 85384; 85610; 85730; 86038; 86160; 86850; 86900; 86901; 87040; 87070; 87075; 87077; 87086; 87088; 87186; 87205; 87324; 87389; 87449; 88304; 88305; 93005; 93306; 93970; 94660; 94760; 96360; 96361; 97112; 97116; 97161; 97530; 99251; 99285; C9113; J0330; J0456; J0692; J0696; J1170; J1450; J1644; J1650; J1815; J2185; J2250; J2270; J2370; J2405; J2704; J3010; J3370; J3475; J3480; J3590; J7030; J7040; J7050; J7120; J7512; P9047; U0002

== ENCOUNTER 2020-01-20 07:42 | Inpatient (IN) | payer OTHER ==
[2020-01-20] MEDS ORDERED: ACETAMINOPHEN 500 MG TAB ONE (08:26)
[2020-01-20] MEDS ORDERED: NA CHLORIDE 0.9% 2,000 ML ONE (08:26)
[2020-01-20 08:44] LABS: Protime INR 1.33
[2020-01-20 08:51] LABS: Urine Bacteria LOADED /HPF (NONE SEEN); Urine Mucus 1+ /HPF (NONE SEEN)
[2020-01-20 08:52] LABS: Absolute Lymphocytes (CBC) 1.4 K/uL (0.7-4.9); Basophils % 0.2 % (0-1.3); Hematocrit 25.6 % (39.6-49.0); Lymphocytes % 8.9 % (15.3-44.8); MPV 6.6 fL (7.6-11.3); RBC Red Blood Cell Count 2.92 M/uL (4.33-5.43)
[2020-01-20 08:56] LABS: ALT/SGPT 28 U/L (12-78); AST/SGOT 12 U/L (15-37); Albumin 1.8 g/dL (3.4-5.0); Alkaline Phosphatase 64 U/L (45-117); Amylase 34 U/L (25-115); BUN Blood Urea Nitrogen 23 mg/dL (7-18); Bicarbonate 24 mmol/L (21-32); Bilirubin Direct 0.1 mg/dL (0-0.2); Bilirubin Total 0.4 mg/dL (0.2-1.0); CKMB Creatine Kinase MB < 1.0 ng/mL (0.3-3.6); Creatine Phosphokinase 21 U/L (39-308); Glucose Level 142 mg/dL (74-106); Lipase 36 U/L (73-393); Potassium 4.1 mmol/L (3.5-5.1); Protein, Total 8.6 g/dL (6.4-8.2); Sodium Level 137 mmol/L (136-145); Troponin (Emerg Dept Use Only) < 0.02 ng/mL (0.0-0.045)
[2020-01-20 09:03] LABS: Urine Blood 2+ (NEG); Urine Glucose NEGATIVE (NEG); Urine Protein TRACE (NEG); Urine Specific Gravity 1.005 (1.005-1.030); Urine pH 6.5 (5.0-7.0)
--- NOTE | 2020-01-20 09:40 | EDPHYS ---
Physician Documentation [facility] Name: Valerio Haney Sr Age: 59 yrs Sex: Male : 1960 Arrival Date: 01/20/2020 Time: 07:43 Bed 6 Private MD: ED Physician Vianca Kulkarni HPI: 01/19 09:37 This 59 yrs old Male presents to ER via EMS with complaints of General ma2 Weakness. 09:37 Onset: The symptoms/episode began/occurred gradually, 3 day(s) ago. Severity of ma2 symptoms: At their worst the symptoms were moderate in the emergency department the symptoms are unchanged. The patient has experienced similar episodes in the past. Historical: - Allergies: 07:45 No Known Drug Allergies; sv - Home Meds: 09:03 divalproex Oral [Active]; Metoprolol Tartrate Oral [Active]; Doxepin Oral [Active]; jl7 [place] Carbonate Oral [Active]; ferrous sulfate Oral [Active]; famotidine Oral [Active]; atorvastatin oral oral [Active]; Trazodone Oral [Active]; Folic Acid Oral [Active]; - PMHx: 07:45 Diabetes - NIDDM; Hypertension; Bipolar disorder; sv - PSHx: 07:45 None; sv - Immunization history:: Adult Immunizations unknown. - Social history:: Smoking status: Patient denies any tobacco usage or history of. Patient/guardian denies using alcohol, street drugs, The patient lives with family. - Family history:: not pertinent. ROS: 09:37 Constitutional: Negative for fever, chills, and weight loss. ma2 09:37 All other systems are negative. Exam: 09:37 Constitutional: This is a well developed, well nourished patient who is awake, alert, ma2 and in no acute distress. Head/Face: Normocephalic, atraumatic. Eyes: Pupils equal round and reactive to light, extra-ocular motions intact. Lids and lashes normal. Conjunctiva and sclera are non-icteric and not injected. Cornea within normal limits. Periorbital areas with no swelling, redness, or edema. ENT: Nares patent. No nasal discharge, no septal abnormalities noted. Tympanic membranes are normal and external auditory canals are clear. Oropharynx with no redness, swelling, or masses, exudates, or evidence of obstruction, uvula midline. Mucous membranes moist. Neck: Trachea midline, no thyromegaly or masses palpated, and no cervical lymphadenopathy. Supple, full range of motion without nuchal rigidity, or vertebral point tenderness. No Meningismus. Chest/axilla: Normal chest wall appearance and motion. Nontender with no deformity. No lesions are appreciated. Cardiovascular: Regular rate and rhythm with a normal S1 and S2. No gallops, murmurs, or rubs. Normal PMI, no JVD. No pulse deficits. Respiratory: Lungs have equal breath sounds bilaterally, clear to auscultation and percussion. No rales, rhonchi or wheezes noted. No increased work of breathing, no retractions or nasal flaring. Abdomen/GI: Soft, non-tender, with normal bowel sounds. No distension or tympany. No guarding or rebound. No evidence of tenderness throughout. Skin: Warm, dry with normal turgor. Normal color with no rashes, no lesions, and no evidence of cellulitis. MS/ Extremity: Pulses equal, no cyanosis. Neurovascular intact. Full, normal range of motion. Neuro: Awake and alert, GCS 15, oriented to person, place, time, and situation. Cranial nerves II-XII grossly intact. Motor strength 5/5 in all extremities. Sensory grossly intact. Cerebellar exam normal. Normal gait. Vital Signs: 07:45 BP 103 / 69; Pulse 98; Resp 21; Temp 97; Pulse Ox 100% ; Weight 81.65 kg; Height 5 ft. jl7 8 in. (172.72 cm); Pain 0/10; 08:49 BP 102 / 62; Pulse 88; Resp 19; Pulse Ox 99% ; jl7 09:30 BP 95 / 64; Pulse 86; Resp 17; Pulse Ox 100% ; jl7 10:49 BP 101 / 59; Pulse 77; Resp 19; Pulse Ox 98% ; jl7 11:15 BP 96 / 63; Pulse 77; Resp 16; Pulse Ox 97% ; jl7 12:25 BP 126 / 80; Pulse 93; Resp 16; Pulse Ox 98% ; jl7 13:30 BP 96 / 65; Pulse 83; Resp 17; Pulse Ox 100% ; jl7 14:37 BP 96 / 65; Pulse 81; Resp 16; Pulse Ox 100% ; sv 07:45 Body Mass Index 27.37 (81.65 kg, 172.72 cm) jl7 MDM: 07:53 Patient medically screened. ma2 09:37 Differential Diagnosis altered mental status, sepsis, SIRS, sepsis uti . Data reviewed: tx2 vital signs, nurses notes. Post IV fluid administration reassessment for Sepsis: Sepsis focused reassessment complete. Focused assessment performed: January 20, 2020 at 09:38 Heart: Regular rate/rhythm. Lungs: noted to be clear bilaterally. Capillary refill examination performed. Capillary refill noted to be brisk. Peripheral pulse evaluation performed. Radial Peripheral pulses noted to be 3+ normal. Skin examination performed. Skin noted to have normal turgor. Current patient vital signs reviewed: Yes. Passive leg raise examination performed. Neuro: Patient's neurological exam has improved from previous exam. Cardio: Cardiovascular exam improved from previous exam. Heart rate and blood pressure have improved. Respiratory: Respiratory exam improved from previous exam. Counseling: I had a detailed discussion with the patient and/or guardian regarding: the historical points, exam findings, and any diagnostic results supporting the discharge/admit diagnosis, the presence of at least one elevated blood pressure reading (>120/80) during this emergency department visit, the need for outpatient follow up. Response to treatment: the patient's symptoms have resolved after treatment. 01/19 07:58 Order name: C-Reactive Protein; Complete Time: :01/19 07:58 Order name: Amylase, Serum; Complete Time: :01/19 07:58 Order name: Basic Metabolic Panel; Complete Time: :01/19 07:58 Order name: Blood Culture Adult (2) 01/19 07:58 Order name: CBC with Diff 01/19 07:58 Order name: Ckmb; Complete Time: :01/19 07:58 Order name: CPK; Complete Time: :01/19 07:58 Order name: Lactate; Complete Time: :01/19 07:58 Order name: LFT's; Complete Time: :01/19 07:58 Order name: Lipase; Complete Time: :01/19 07:58 Order name: Procalcitonin; Complete Time: 09:01/19 07:58 Order name: Protime (+inr); Complete Time: 09:31 [facility] 01/19 07:58 Order name: Ptt, Activated; Complete Time: 09:31 [facility] 01/19 07:58 Order name: Troponin (emerg Dept Use Only); Complete Time: 09:31 [facility] 01/19 07:58 Order name: Urine Microscopic Only; Complete Time: 09:31 [facility] 01/19 07:58 Order name: Chest Single View XRAY [facility] 01/19 08:09 Order name: Urine Dipstick--Ancillary (enter results); Complete Time: 09:31 eb 01/19 08:37 Order name: Glucose, Ancillary Testing; Complete Time: 09:31 [facility] 01/19 08:57 Order name: Urine Culture [facility] 01/19 09:49 Order name: Manual Differential [facility] 01/19 10:31 Order name: Lactate [facility] 01/19 10:31 Order name: Lactate [facility] 01/19 10:31 Order name: Lactate [facility] 01/19 10:32 Order name: Potwin [facility] 01/19 10:32 Order name: CORONAVIRUS [facility] 01/19 13:44 Order name: SARS-COV-2 RT PCR [facility] 01/19 07:58 Order name: Accucheck; Complete Time: 08:43 [facility] 01/19 07:58 Order name: Cardiac monitoring; Complete Time: 08:00 [facility] 01/19 07:58 Order name: EKG - Nurse/Tech; Complete Time: 08:44 [facility] 01/19 07:58 Order name: IV Saline Lock - Large Bore; Complete Time: 08:44 [facility] 01/19 07:58 Order name: Labs collected and sent; Complete Time: 08:43 [facility] 01/19 07:58 Order name: O2 Per Protocol; Complete Time: 08:00 [facility] 01/19 07:58 Order name: O2 Sat Monitoring; Complete Time: 08:00 [facility] 01/19 07:58 Order name: Urine Dipstick-Ancillary (obtain specimen); Complete Time: 08:44 ma2 Administered Medications: 08:26 Drug: Acetaminophen 1000 mg Route: PO; jl7 10:47 Follow up: Response: No adverse reaction 08:26 Drug: NS 0.9% (30 ml/kg) 30 ml/kg Route: IV; Rate: bolus; Site: left antecubital; [facility] 10:30 Follow up: Response: No adverse reaction; IV Status: Completed infusion; IV Intake: jl7 2000ml 10:20 Drug: Rocephin 1 grams Route: IV; Rate: calculated rate; Site: left antecubital; 7 10:23 Follow up: Response: No adverse reaction; IV Status: Completed infusion jl7 Disposition: 01/20/20 09:39 Hospitalization ordered by Tucker Quintana for Inpatient Admission. Preliminary diagnosis are Severe sepsis without septic shock, Cystitis, unspecified without hematuria. - Bed requested for Telemetry/MedSurg (Inpatient). - Status is Inpatient Admission. jl7 - Condition is Stable. - Problem is new. - Symptoms are unchanged. Signatures: Dispatcher [employer] EDAK Mi Majano, RN RN Colin Benjamin RN RN 7 Vianca Kulkarni MD MD ma Kim Regalado Corrections: (The following items were deleted from the chart) 10:37 10:31 Blood Culture ordered. [facility] 13:59 09:39 Hospitalization Ordered by Tucker Quintana DO for Inpatient Admission. Preliminary eb diagnosis is Severe sepsis without septic shock; Cystitis, unspecified without hematuria. Bed requested for Telemetry/MedSurg (Inpatient). Status is Inpatient Admission. Condition is Stable. Problem is new. Symptoms are unchanged. [facility] 15:24 13:59 01/20/2020 09:39 Hospitalization Ordered by Tucker Quinatna DO for Inpatient jl7 Admission. Preliminary diagnosis is Severe sepsis without septic shock; Cystitis, unspecified without hematuria. Bed requested for Telemetry/MedSurg (Inpatient). Status is Inpatient Admission. Condition is Stable. Problem is new. Symptoms are unchanged. eb
--- NOTE | 2020-01-20 09:40 | ER ---
Nurse's Notes [facility] Name: Valerio Haney Sr Age: 59 yrs Sex: Male : 1960 Arrival Date: 01/20/2020 Time: 07:43 Bed 6 Private MD: Diagnosis: Severe sepsis without septic shock;Cystitis, unspecified without hematuria Presentation: 01/19 07:43 Chief complaint: EMS states: called out for generalized weakness x 2 days. Sister sv reported that he was in a rehab facility for about 4 months recently had hip surgery. Was COVID+ then. BP 98/63 HR-100 96-97% RA. Coronavirus screen: Client denies travel out of the [place] in the last 14 days. Ebola Screen: No symptoms or risks identified at this time. Risk Assessment: Do you want to hurt yourself or someone else? Patient reports no desire to harm self or others. Onset of symptoms was January 18, 2020. 07:43 Method Of Arrival: EMS: [facility] 07:43 Acuity: DEWAYNE 3 07:45 Initial Sepsis Screen: Does the patient meet any 2 criteria? HR > 90 bpm. No. Patient's jl7 initial sepsis screen is negative. Does the patient have a suspected source of infection? No. Patient's initial sepsis screen is negative. Care prior to arrival: None. Transition of care: patient was not received from another setting of care. Triage Assessment: 07:45 General: Appears in no apparent distress. uncomfortable, Behavior is calm, cooperative, jl7 appropriate for age. Pain: Denies pain. EENT: No signs and/or symptoms were reported regarding the EENT system. Neuro: Level of Consciousness is awake, alert, obeys commands, Oriented to person, place, time, situation. Cardiovascular: Patient's skin is warm and dry. Respiratory: Airway is patent Respiratory effort is even, unlabored, Respiratory pattern is regular, symmetrical. GI: Patient currently denies diarrhea, nausea, vomiting. : Denies burning with urination, pain with urination. Derm: Skin is pink, warm \T\ dry. Historical: - Allergies: 07:45 No Known Drug Allergies; sv - Home Meds: 09:03 divalproex Oral [Active]; Metoprolol Tartrate Oral [Active]; Doxepin Oral [Active]; jl7 [place] Carbonate Oral [Active]; ferrous sulfate Oral [Active]; famotidine Oral [Active]; atorvastatin oral oral [Active]; Trazodone Oral [Active]; Folic Acid Oral [Active]; - PMHx: 07:45 Diabetes - NIDDM; Hypertension; Bipolar disorder; sv - PSHx: 07:45 None; sv - Immunization history:: Adult Immunizations unknown. - Social history:: Smoking status: Patient denies any tobacco usage or history of. Patient/guardian denies using alcohol, street drugs, The patient lives with family. - Family history:: not pertinent. Screenin:46 Abuse screen: Denies threats or abuse. Denies injuries from another. Nutritional sv screening: No deficits noted. Tuberculosis screening: No symptoms or risk factors identified. Fall Risk None identified. Assessment: 08:00 General: See triage assessment. jl7 09:00 Reassessment: Patient appears in no apparent distress at this time. No changes from 7 previously documented assessment. Patient and/or family updated on plan of care and expected duration. Pain level reassessed. Patient is alert, oriented x 3, equal unlabored respirations, skin warm/dry/pink. 09:30 Derm: Decubitus located on sacrum approximately 2.6 cm to 7.5 cm jl7 10:00 Reassessment: Assisted pt with urinal, pt able to stand with assist, denies dizziness, jl7 denies weakness on standing. 10:50 Reassessment: Patient appears in no apparent distress at this time. No changes from 7 previously documented assessment. Patient and/or family updated on plan of care and expected duration. Pain level reassessed. Patient is alert, oriented x 3, equal unlabored respirations, skin warm/dry/pink. Vital Signs: 07:45 BP 103 / 69; Pulse 98; Resp 21; Temp 97; Pulse Ox 100% ; Weight 81.65 kg; Height 5 ft. jl7 8 in. (172.72 cm); Pain 0/10; 08:49 BP 102 / 62; Pulse 88; Resp 19; Pulse Ox 99% ; jl7 09:30 BP 95 / 64; Pulse 86; Resp 17; Pulse Ox 100% ; jl7 10:49 BP 101 / 59; Pulse 77; Resp 19; Pulse Ox 98% ; jl7 11:15 BP 96 / 63; Pulse 77; Resp 16; Pulse Ox 97% ; jl7 12:25 BP 126 / 80; Pulse 93; Resp 16; Pulse Ox 98% ; jl7 13:30 BP 96 / 65; Pulse 83; Resp 17; Pulse Ox 100% ; jl7 14:37 BP 96 / 65; Pulse 81; Resp 16; Pulse Ox 100% ; sv 07:45 Body Mass Index 27.37 (81.65 kg, 172.72 cm) jl7 ED Course: 07:43 Patient arrived in ED. sv 07:45 Triage completed. sv 07:46 Arm band placed on. sv 07:46 Patient has correct armband on for positive identification. Placed in gown. Bed in low sv position. Call light in reach. Side rails up X2. Pulse ox on. NIBP on. 07:52 Vianca Kulkarni MD is Attending Physician. ma2 07:58 Colin Benjamin, MARIA GUADALUPE is Primary Nurse. jl7 08:06 First set of blood cultures drawn by ED staff, Urine collected: clean catch specimen, jl7 cloudy. 08:10 EKG done, by ED staff, reviewed by Vianca Kulkarni MD. jl7 08:21 Inserted saline lock: 22 gauge in left antecubital area, using aseptic technique. Blood jl7 collected. 08:21 Initial lab(s) drawn, by ED staff, sent to lab. Second set of blood cultures drawn by [facility] ED staff. 08:30 Chest Single View XRAY In Process Unspecified. EDMS 09:39 Tucker Quintana DO is Hospitalizing Provider. ma2 12:27 COVID swab sent to lab. jl7 12:39 Urine Culture Sent. sv 13:10 No provider procedures requiring assistance completed. Patient admitted, IV remains in jl7 place. intact, No redness/swelling at site. Administered Medications: 08:26 Drug: Acetaminophen 1000 mg Route: PO; jl7 10:47 Follow up: Response: No adverse reaction jl7 08:26 Drug: NS 0.9% (30 ml/kg) 30 ml/kg Route: IV; Rate: bolus; Site: left antecubital; jl7 10:30 Follow up: Response: No adverse reaction; IV Status: Completed infusion; IV Intake: jl7 2000ml 10:20 Drug: Rocephin 1 grams Route: IV; Rate: calculated rate; Site: left antecubital; jl7 10:23 Follow up: Response: No adverse reaction; IV Status: Completed infusion jl7 Intake: 10:30 IV: 2000ml; Total: 2000ml. jl7 Output: 13:30 Urine: 550ml (Voided); Total: 550ml. sv Outcome: 09:39 Decision to Hospitalize by Provider. ma2 14:59 Admitted to Tele accompanied by tech, via wheelchair, room 205, with chart, Report jl7 called to MARIA GUADALUPE Spangler 14:59 Condition: stable 14:59 Discharge instructions given to patient, Instructed on the need for admit, Demonstrated understanding of instructions. 15:24 Patient left the ED. jl7 Signatures: Dispatcher [employer] Mi Johns RN RN sv Leal, Jahala, RN RN jl7 Vianca Kulkarni MD MD ma2 Corrections: (The following items were deleted from the chart) 07:46 07:43 Chief complaint: EMS states: called out for generalized weakness x 2 days. Sister shahbaz reported that he was in a rehab facility for about 4 months recently had hip surgery. Was COVID+ then. 14:59 12:25 BP 156 / 88; Pulse 93bpm; Resp 16bpm; Pulse Ox 98%; sv jl7
[2020-01-20 09:49] LABS: Blood Morphology Comment NOT SEEN (NOT SEEN); Platelet Estimate ADEQ
[2020-01-20] MEDS ORDERED: CEFTRIAXONE/SWI 1gm 1 GM/10 ML SYR ONE (09:51)
--- NOTE | 2020-01-20 09:59 | RAD REPORT ---
EXAM DESCRIPTION: [place] Single View01/20/2020 8:30 am CLINICAL HISTORY: congestion COMPARISON: August 2019 FINDINGS: The lungs appear clear of acute infiltrate. The heart is normal size IMPRESSION: No acute abnormalities displayed
[2020-01-20] MEDS ORDERED: Meropenem 1000 MG/VIAL IV SCH (10:30)
--- NOTE | 2020-01-20 10:56 | P.HP ---
Certification for Inpatient Patient admitted to: Inpatient With expected LOS: >2 Midnights Patient will require the following post-hospital care: Home Health Services Practitioner: I am a practitioner with admitting privileges, knowledge of patient current condition, hospital course, and medical plan of care. Services: Services provided to patient in accordance with Admission requirements found in Title 42 Section 412.3 of the Code of Federal Regulations Patient History Date of Service: 01/20/20 Primary Care Provider: Unknown; PSYC Reason for admission: Fatigue History of Present Illness: 59-year-old male with history of COVID 19 infection in July/August 2019. That hospitalization was complex with the patient having UTI-ESBL, sacral unstageable pressure ulcer, acute respiratory failure, acute on chronic renal failure, acute right lower extremity DVT, diabetes mellitus type 2, and hypertension. Patient with history of schizophrenia. The patient at that time went to a long-term acute care facility. He was then transition to skilled facility. The patient recently transition home. Over the last several days, patient has noted increased polyuria and fatigue. Patient denies any nausea, vomiting, abdominal pain, chest pain or shortness of breath. He denies any fever. He is brought to the ER for further evaluation. In the ER patient was evaluated. Blood pressure slightly low. White count 16. Hemoglobin 8.7. Sodium 137 come potassium 4.1. BUN of 23, creatinine 2.7 with a GFR 24. Urinalysis was positive for bacteria. Pro calcitonin normal at 0.13 with the lactic acid normal at 1.5. Troponin unremarkable. CRP elevated. Chest x-ray unremarkable. Patient was started on sepsis protocol. 30 milligram/kilograms IV bolus was given. Patient admitted for further evaluation and treatment. When I saw the patient ER, patient appeared stable. Blood pressure around 100 systolic. Patient afebrile. Patient not tachycardic. Most of the history came from the patient and sister. He reports that he was recently tested for COVID last week which was negative. Allergies No Known Drug Allergies Allergy (Verified 06/24/14 14:17) Unknown Home medications list reviewed: Yes Home Medications: Divalproex Sodium [Depakote ER] 1 tab PO DAILY 08/22/19 Divalproex Sodium [Depakote ER] 2 tab PO BEDTIME 08/22/19 [place] Carbonate [Lithotabs *] 1 cap PO BEDTIME 08/22/19 risperiDONE [Risperdal] 2 tab PO BEDTIME 08/22/19 - Past Medical/Surgical History Diabetic: Yes -: Diabetes mellitus type 2 -: Hypertension -: Chronic renal disease stage 3 -: Schizophrenia -: Hx of COVID 19 Past Surgical History: Reviewed- Non-Contributory Psychosocial/ Personal History: Patient lives at home with daughter. Sister's involved in his care. Patient is seen at the psychiatric clinic - Family History Family History: Reviewed- Non-Contributory - Social History Smoking Status: Former smoker Alcohol use: No CD- Drugs: No Caffeine use: Yes Place of Residence: Home Review of Systems General: Weakness, Malaise, As per HPI Eyes: Unremarkable ENT: Unremarkable Respiratory: Unremarkable Cardiovascular: Unremarkable Gastrointestinal: Unremarkable Genitourinary: Frequency, As per HPI Musculoskeletal: Unremarkable Integumentary: Unremarkable Neurological: Unremarkable Lymphatics: Unremarkable Physical Examination - Physical Exam General: Alert, In no apparent distress, Oriented x3, Cooperative HEENT: Atraumatic, Normocephalic, Other (Dry mucous membranes) Neck: Supple Respiratory: Clear to auscultation bilaterally, Normal air movement Cardiovascular: Normal pulses, Regular rate/rhythm Gastrointestinal: Normal bowel sounds, No tenderness, No masses, No rebound, No guarding Musculoskeletal: No erythema, No tenderness, No warmth Integumentary: Other (Patient with history of sacral pressure ulcer. 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 Blood, urine cultures obtained. 30 milligram/kilogram fluid bolus given. Will continue with aggressive IV fluid hydration. Maintain blood pressure. Will start meropenem due to his history of ESBL. Will continue to monitor lab closely. Recheck lactic acid now. Initial lactic acid and pro calcitonin unremarkable. Will need to obtain home medications. Will continue monitor closely. Will reassess within 6 hr. Will order PICC line as the patient may require long-term IV antibiotics. Patient recently discharge from skilled facility. Anticipate improvement over the next 2-3 days. Patient likely will require home health and physical therapy discharge. Acute on chronic renal disease stage IV with dehydration: Continue aggressive IV fluid hydration. Will monitor input and output closely. Will consult Nephrology to further address and monitor. Await recommendations. Diabetes mellitus type 2: Will provide sliding scale and monitor Accu-Cheks. Will check A1c. Hypotension related to sepsis with history of hypertension: Hold blood pressure medication at this time. Will monitor blood pressure closely. Schizophrenia: Will need to obtain and restart home medication. Patient seen by psychiatry as an outpatient. Will check lithium level. Anemia of chronic disease: Will check iron and B12 studies. Will monitor closely. History of sacral pressure ulcer: Will have wound care evaluate and document pressure ulcer. Patient has received treatment for this in the past including surgery. Hx of COVID 19 infection with prior complex hospitalization: Will retest. Monitor closely. Chest x-ray unremarkable. Maintain oxygen above 93%. Discharge Plan: Home Plan to discharge in: Greater than 2 days - Advance Directives Does patient have a Living Will: No Does patient have a Durable POA for Healthcare: No - Code Status/Comfort Care Code Status Assessed: Yes (Patient full code) Time Spent Managing Pts Care (In Minutes): 55
[2020-01-20] MEDS: Meropenem 1,000 MG in NA CHLORIDE 0.9% 100 ML IV SCH ×2 (11:00→20:51)
--- NOTE | 2020-01-20 15:09 | P.INFCA ---
Sepsis Focused Assessment - Focused Assessment Complete? Sepsis Focused Assessment Completed?: Yes - Sepsis Screen Result Severe Sepsis: Negative Septic Shock: Negative - Evaluation Reason for ruling out sepsis: Patient with UTI sepsis, no severe sepsis - Vital Signs Reviewed: Yes Temperature: 98.3 F Heart rate: 85 Blood Pressure: 97/60 Respiratory Rate: 15 O2 Sat by Pulse Oximetry: 95 - Examination Date exam was performed: 01/20/20 Time exam was performed: 15:06 Heart: Regular rate/rhythm Lungs: Clear bilaterally Peripheral pulses: 3+ Normal Peripheral pulse location: Pedal Capillary refill: >2 Seconds Skin examination: Normal turgor Comments: Patient is alert and appropriate. Sister at bedside
[2020-01-20] MEDS: INSULIN -REGULAR HUMAN 50 UNIT/0.5 ML ML SQ SCH ×3 (15:27→20:52)
[2020-01-20] MEDS ORDERED: ONDANSETRON 4 MG/2 ML VIAL IV PRN (15:27)
[2020-01-20] MEDS: NACHLORIDE 0.45% 1,000 ML IV SCH (16:07)
[2020-01-20] MEDS: ACETAMINOPHEN 500 MG TAB PO PRN (16:11)
[2020-01-20 17:49] VITALS: BMI 27.3
[2020-01-20] MEDS ORDERED: Meropenem 1 GM/100 ML BAG ONE (20:34)
[2020-01-20] MEDS: HEPARIN 5000 UNIT/ML 1 ML VIAL SQ SCH (21:39)
[2020-01-21] MEDS: NACHLORIDE 0.45% 1,000 ML IV SCH ×2 (00:16→05:57)
[2020-01-21 06:28] LABS: Absolute Lymphocytes (CBC) 0.8 K/uL (0.7-4.9); Basophils % 0.4 % (0-1.3); Hematocrit 21.8 % (39.6-49.0); Lymphocytes % 6.9 % (15.3-44.8); MPV 6.7 fL (7.6-11.3); RBC Red Blood Cell Count 2.45 M/uL (4.33-5.43)
[2020-01-21 06:54] LABS: Ferritin 1186.7 ng/mL (26-388); Magnesium 2.3 mg/dL (1.8-2.4); Potassium 3.8 mmol/L (3.5-5.1); Thyroid Stimulating Hormone 0.242 uIU/mL (0.360-3.740)
[2020-01-21] MEDS: INSULIN -REGULAR HUMAN 50 UNIT/0.5 ML ML SQ SCH ×4 (07:30→21:00)
--- NOTE | 2020-01-21 07:35 | P.PN ---
Subjective Date of Service: 01/21/20 Primary Care Provider: Unknown; TURNER Chief Complaint: Fatigue Subjective: Improving, Doing well (No complaints noted. Blood pressure stable. Patient afebrile.) Physical Examination - Vital Signs Temperature: 99.3 F Blood Pressure: 122/64 Pulse: 88 Respirations: 20 Pulse Ox (%): 97 - Physical Exam General: Alert, In no apparent distress, Oriented x3, Cooperative HEENT: Atraumatic Neck: Supple Respiratory: Clear to auscultation bilaterally, Normal air movement Cardiovascular: Normal pulses, Regular rate/rhythm Gastrointestinal: Normal bowel sounds, No tenderness, No masses, No rebound, No guarding Integumentary: No tenderness/swelling, No erythema, No warmth, No cyanosis Neurological: Normal speech, Normal strength at 5/5 x4 extr, Normal tone, Normal affect - Studies Laboratory Data (last 24 hrs) 01/20/20 08:21: PT 15.6 H, INR 1.33, APTT 38.0 H 01/20/20 08:21: WBC 16.0 H, Hgb 8.7 L, Hct 25.6 L, Plt Count 347 01/20/20 08:21: Sodium 137, Potassium 4.1, BUN 23 H, Creatinine 2.74 H, Glucose 142 H, Total Bilirubin 0.4, AST 12 L, ALT 28, Alkaline Phosphatase 64, Amylase 34, Lipase 36 L Medications List Reviewed: Yes Assessment & Plan Discharge Plan: Home Plan to discharge in: 72 Hours Physician Review Additional Text: Impression: Fatigue, polyuria secondary to sepsis related to UTI with bacteremia suspect recurrent ESBL, current urine and blood culture showing Gram-negative tl Acute on chronic renal disease stage IV with dehydration Acute on chronic hypernatremia Diabetes mellitus type 2 insulin-dependent Hypotension related to sepsis with history of hypertension Schizophrenia Anemia of chronic disease with iron deficiency History of sacral pressure ulcer Hx of COVID 19 infection with prior complex hospitalization Plan: Fatigue, polyuria secondary to sepsis related to UTI with bacteremia suspect recurrent ESBL, current urine and blood culture showing gram-negative tl: Blood pressure improved. Patient no longer in sepsis. Patient appears back to baseline. Blood and urine cultures reviewed. Gram-negative rods noted. Suspect recurrent ESBL. Patient on meropenem. PICC line placed yesterday. Patient with hypernatremia with history of hypernatremia in the past. Will change IV fluids to D5 W. Will discuss further with nephrology. Recheck lab later today. Patient also iron deficient. Will add iron supplementation. Patient with underlying schizophrenia but mentally stable. Continue to monitor closely. Will have wound care addressed chronic sacral ulcer. Anticipate improvement over the next 3 days. Likely discharge home with IV antibiotic therapy for 2 weeks. Case discussed with patient and sister who takes care the patient. I will turn the service over to the hospitalist team tomorrow. I will go over plan of care with him. Acute on chronic renal disease stage IV with dehydration: Patient with hypernatremia. Will change IV fluids to D5 W. Recheck lab later today. Renal function improved. Will discuss further with nephrology. Await further recommendations. Acute on chronic hypernatremia: Patient with history of hypernatremia on last admission. Will change IV fluids to D5 W. Recheck lab later today. Will discuss further with nephrology on further recommendations. Diabetes mellitus type 2 insulin-dependent: Continue monitor Accu-Cheks. Sliding scale in place. Will check A1c. Continue to hold basal insulin. Blood sugars controlled. Hypotension related to sepsis with history of hypertension: Blood pressure improved. Blood pressure stable. Will hold blood pressure medication- metoprolol 12.5 mg 1 pill twice daily at this time. Will need to restart medication if blood pressure elevated. Schizophrenia: [place] level stable. Continue with home medication including lithium, Depakote, trazodone and doxepin. Anemia of chronic disease with iron deficiency: Will start oral iron supplementation. Will monitor hemoglobin. Transfuse if hemoglobin below 7.0. History of sacral pressure ulcer: Will have wound care evaluate and document pressure ulcer. Patient has received treatment for this in the past including surgery-debridement. Hx of COVID 19 infection with prior complex hospitalization: Retest negative. Monitor closely. Chest x-ray unremarkable. Maintain oxygen above 93%. Time Spent Managing Pts Care (In Minutes): 55
[2020-01-21] MEDS ORDERED: DOXEPIN HCL 25 MG CAP PO PRN (07:43)
[2020-01-21] MEDS ORDERED: D5W 1,000 ML IV SCH (08:00)
[2020-01-21] MEDS ORDERED: FOLIC ACID 1 MG TABLET PO SCH (09:00)
[2020-01-21] MEDS: ASPIRIN EC 81 MG TAB PO SCH (09:14)
[2020-01-21] MEDS: ATORVASTATIN 10 MG TAB PO SCH (09:14)
[2020-01-21] MEDS: DIVALPROEX ER 250 MG TAB PO SCH ×2 (09:14→21:19)
[2020-01-21] MEDS: TRAZODONE 50 MG TABLET PO SCH ×2 (09:14→21:19)
[2020-01-21] MEDS: FOLIC ACID 1 MG TABLET PO SCH ×3 (09:14→21:20)
[2020-01-21] MEDS: HEPARIN 5000 UNIT/ML 1 ML VIAL SQ SCH ×2 (09:15→21:19)
[2020-01-21] MEDS: THIAMINE HCL 100 MG TABLET PO SCH (09:20)
[2020-01-21] MEDS: FAMOTIDINE 20 MG TAB PO SCH (09:20)
[2020-01-21] MEDS: Meropenem 1,000 MG in NA CHLORIDE 0.9% 100 ML IV SCH ×2 (10:58→21:18)
[2020-01-21 10:59] LABS: Anisocytosis 1+; Blood Morphology Comment NOTED (NOT SEEN); Platelet Estimate ADEQ; Rouleau SLIGHT
--- NOTE | 2020-01-21 12:23 | P.CNS ---
Date of Consult: 01/21/20 Primary Care Provider: Unknown; PSYC Chief Complaint: Fatigue History of Present Illness: Pt is a 59 yo male with past medical hx of hypertension, schizophrenia, recent covid infection that is resolved presents with fatigue, polyuria and polydipsia. Pt reports near falls as well. On arrival in the ED, pt was noted to have an JULIANNA and hypernatremia. Renal has been consulted for JULIANNA and hypernatremia. Allergies No Known Drug Allergies Allergy (Verified 06/24/14 14:17) Unknown Home Medications: Divalproex Sodium [Depakote ER] 1 tab PO DAILY 08/22/19 Divalproex Sodium [Depakote ER] 2 tab PO BEDTIME 08/22/19 Aspirin [Aspirin EC 81 MG] 81 mg PO DAILY 01/20/20 Atorvastatin Calcium 10 mg PO DAILY 01/20/20 Doxepin HCl 50 mg PO BID PRN 01/20/20 Famotidine 20 mg PO DAILY 01/20/20 Folic Acid 1 mg PO TID 01/20/20 Insulin Glargine,Hum.rec.anlog [Lantus Solostar] 30 units SQ BEDTIME 01/20/20 War Carbonate [Lithotabs 300MG] 300 mg PO BEDTIME 01/20/20 Metoprolol Tartrate 12.5 mg PO BID 01/20/20 Trazodone [Desyrel*] 50 mg PO BID 01/20/20 - Past Medical/Surgical History Diabetic: Yes -: Diabetes mellitus type 2 -: Hypertension -: Chronic renal disease stage 3 -: Schizophrenia -: Hx of COVID 19 Psychosocial/ Personal History: Patient lives at home with daughter. Sister's involved in his care. Patient is seen at the psychiatric clinic - Social History Smoking Status: Current every day smoker Alcohol use: No CD- Drugs: No Caffeine use: Yes Place of Residence: Home Review of Systems ros is unremarkable excepta s stated in hpi Physical Examination Temp Pulse Resp BP Pulse Ox 98.8 F 81 18 126/67 96 01/21/20 08:00 01/21/20 08:00 01/21/20 08:00 01/21/20 08:00 01/21/20 08:00 General: Alert, In no apparent distress, Oriented x2 HEENT: Atraumatic Neck: Supple, 2+ carotid pulse no bruit, No LAD, Without JVD or thyroid abnormality Respiratory: Clear to auscultation bilaterally, Normal air movement Cardiovascular: Regular rate/rhythm, Normal S1 S2 Gastrointestinal: Normal bowel sounds, No tenderness Musculoskeletal: No tenderness Integumentary: Skin breakdown Neurological: Abnormal gait, Abnormal strength Urinary: Dialysis catheter Conclusions/Impression: Problems Acute kidney injury mostly prerenal Hypernatremia suspect DI Diabetes insipides Dehydration Urinary tract infection Plan Increase d5w [id number] Strict i/o Obtain urine electrolytes Treat urinary tract infection Avoid nephrotoxins including acei/arb, nsaids, fleets enema Daily monitoring of electrolytes
[2020-01-21 12:58] LABS: Hematocrit 21.8 % (39.6-49.0)
[2020-01-21] MEDS: D5W 1,000 ML IV SCH ×2 (13:00→18:05)
[2020-01-21 13:07] LABS: Potassium 3.7 mmol/L (3.5-5.1)
--- NOTE | 2020-01-21 17:24 | RAD REPORT ---
EXAM DESCRIPTION: RAD - Chest Single View - 01/21/2020 4:41 am CLINICAL HISTORY: Picc line placement COMPARISON: Chest 08/25/2019 TECHNIQUE: AP Chest. FINDINGS: There is a right subclavian PICC line with the tip in the cavoatrial junction. Normal cardiac size. Pulmonary vasculature appears normal when accounting for low lung volumes. Fatmata l cardiomediastinal contours. Lungs are clear. Pleural spaces are clear. No pneumothorax. Unremarkable soft tissues. There is mild generalized thoracic degenerative change. IMPRESSION: 1. Right subclavian PICC line placed in appropriate position. No complicating findin g. Electronically signed by: Kristin Tai DO 01/21/2020 4:53 AM [employer] Due to temporary technical issues with the PACS/Fluency reporting system, reports are being signed by the in house radiologists without review as a courtesy to insure prompt reporting. The interpreting radiologist is fully responsible for the content of the report.
[2020-01-21] MEDS ORDERED: POTASSIUM CL SA 10 MEQ TAB PO ONE (19:54)
[2020-01-21] MEDS: JUVEN PACKET PO SCH ×2 (21:00→21:27)
[2020-01-21] MEDS: LITHIUM CARBONATE 300 MG TAB PO SCH (21:00)
[2020-01-21] MEDS: FERROUS SULFATE 325 MG TAB PO SCH (21:20)
[2020-01-22] MEDS: D5W 1,000 ML IV SCH ×4 (01:25→22:20)
[2020-01-22 05:01] LABS: Absolute Lymphocytes (CBC) 1.5 K/uL (0.7-4.9); Basophils % 0.4 % (0-1.3); Hematocrit 22.1 % (39.6-49.0); Lymphocytes % 15.2 % (15.3-44.8); MPV 6.4 fL (7.6-11.3); RBC Red Blood Cell Count 2.48 M/uL (4.33-5.43)
[2020-01-22 05:46] LABS: Magnesium 2.2 mg/dL (1.8-2.4); Potassium 3.9 mmol/L (3.5-5.1)
[2020-01-22] MEDS: INSULIN -REGULAR HUMAN 50 UNIT/0.5 ML ML SQ SCH ×4 (07:30→21:48)
[2020-01-22] MEDS: JUVEN PACKET PO SCH ×2 (09:00→21:42)
[2020-01-22] MEDS ORDERED: POTASSIUM CL SA 10 MEQ TAB PO ONE (09:00)
[2020-01-22] MEDS: HEPARIN 5000 UNIT/ML 1 ML VIAL SQ SCH ×2 (09:11→21:43)
[2020-01-22] MEDS: FERROUS SULFATE 325 MG TAB PO SCH ×2 (09:12→21:42)
[2020-01-22] MEDS: FOLIC ACID 1 MG TABLET PO SCH ×3 (09:12→21:41)
[2020-01-22] MEDS: ASPIRIN EC 81 MG TAB PO SCH (09:12)
[2020-01-22] MEDS: TRAZODONE 50 MG TABLET PO SCH ×2 (09:12→21:41)
[2020-01-22] MEDS: FAMOTIDINE 20 MG TAB PO SCH (09:12)
[2020-01-22] MEDS: ATORVASTATIN 10 MG TAB PO SCH (09:12)
[2020-01-22] MEDS: THIAMINE HCL 100 MG TABLET PO SCH (09:14)
[2020-01-22] MEDS: Meropenem 1,000 MG in NA CHLORIDE 0.9% 100 ML IV SCH ×2 (09:15→21:42)
[2020-01-22] MEDS ORDERED: DESMOPRESSIN 4 MCG/ML AMP SQ STA (11:51)
--- NOTE | 2020-01-22 11:54 | P.PN ---
Subjective Date of Service: 01/22/20 Primary Care Provider: Unknown; TURNER Chief Complaint: Fatigue Physical Examination - Vital Signs Temperature: 97.9 F Blood Pressure: 120/67 Pulse: 71 Respirations: 18 Pulse Ox (%): 99 - Studies Microbiology Data (last 24 hrs): 01/20/20 08:06 Clean Catch Urine [place] Count - Final >100,000 CFU/ML. 01/20/20 08:06 Clean Catch Urine - Final Escherichia Coli Esbl Medications List Reviewed: Yes Assessment & Plan Physician Review Additional Text: Impression: Fatigue, polyuria secondary to sepsis related to UTI with bacteremia suspect recurrent ESBL, current urine and blood culture showing Gram-negative tl Acute on chronic renal disease stage IV with dehydration Acute on chronic hypernatremia Diabetes mellitus type 2 insulin-dependent Hypotension related to sepsis with history of hypertension Schizophrenia Anemia of chronic disease with iron deficiency History of sacral pressure ulcer Hx of COVID 19 infection with prior complex hospitalization Plan: Fatigue, polyuria secondary to sepsis related to UTI with bacteremia suspect recurrent ESBL, current urine and blood culture showing gram-negative tl: Blood pressure improved. Patient no longer in sepsis. Patient appears back to baseline. Blood and urine cultures reviewed. Gram-negative rods noted. Suspect recurrent ESBL. Patient on meropenem. PICC line placed yesterday. Patient with hypernatremia with history of hypernatremia in the past. Will change IV fluids to D5 W. Will discuss further with nephrology. Recheck lab later today. Patient also iron deficient. Will add iron supplementation. Patient with underlying schizophrenia but mentally stable. Continue to monitor closely. Will have wound care addressed chronic sacral ulcer. Anticipate improvement over the next 3 days. Likely discharge home with IV antibiotic therapy for 2 weeks. Case discussed with patient and sister who takes care the patient. I will turn the service over to the hospitalist team tomorrow. I will go over plan of care with him. Acute on chronic renal disease stage IV with dehydration: Patient with hypernatremia. Will change IV fluids to D5 W. Recheck lab later today. Renal function improved. Will discuss further with nephrology. Await further recommendations. Acute on chronic hypernatremia: Patient with history of hypernatremia on last admission. Will change IV fluids to D5 W. Recheck lab later today. Will discuss further with nephrology on further recommendations. Diabetes mellitus type 2 insulin-dependent: Continue monitor Accu-Cheks. Sliding scale in place. Will check A1c. Continue to hold basal insulin. Blood sugars controlled. Hypotension related to sepsis with history of hypertension: Blood pressure improved. Blood pressure stable. Will hold blood pressure medication- metoprolol 12.5 mg 1 pill twice daily at this time. Will need to restart medication if blood pressure elevated. Schizophrenia: [place] level stable. Continue with home medication including lithium, Depakote, trazodone and doxepin. Anemia of chronic disease with iron deficiency: Will start oral iron supplementation. Will monitor hemoglobin. Transfuse if hemoglobin below 7.0. History of sacral pressure ulcer: Will have wound care evaluate and document pressure ulcer. Patient has received treatment for this in the past including surgery-debridement. Hx of COVID 19 infection with prior complex hospitalization: Retest negative. Monitor closely. Chest x-ray unremarkable. Maintain oxygen above 93%.
--- NOTE | 2020-01-22 11:55 | P.PN ---
Subjective Date of Service: 01/23/20 Primary Care Provider: Unknown; TURNER Chief Complaint: Fatigue Pt seen and examined. No chest pain, shortness of breath, nausea, vomiting. Review of Systems Genitourinary: Dysuria, Frequency Physical Examination - Vital Signs Temperature: 97.9 F Blood Pressure: 120/67 Pulse: 71 Respirations: 18 Pulse Ox (%): 99 - Physical Exam General: Alert, In no apparent distress HEENT: Atraumatic, PERRLA, EOMI Neck: Supple, JVD not distended Respiratory: Clear to auscultation bilaterally, Normal air movement Cardiovascular: Regular rate/rhythm, Normal S1 S2 Gastrointestinal: Normal bowel sounds, No tenderness Integumentary: Skin breakdown Neurological: Abnormal gait - Studies Microbiology Data (last 24 hrs): 01/20/20 08:06 Clean Catch Urine [place] Count - Final >100,000 CFU/ML. 01/20/20 08:06 Clean Catch Urine - Final Escherichia Coli Esbl Medications List Reviewed: Yes Assessment & Plan Physician Review Additional Text: Problems Acute kidney injury mostly prerenal Hypernatremia suspect DI Diabetes insipides Dehydration Urinary tract infection sepsis Plan Increase d5w [id number] Give one dose of ddavp Strict i/o Treat urinary tract infection Avoid nephrotoxins including acei/arb, nsaids, fleets enema Daily monitoring of electrolytes
[2020-01-22] MEDS: DIVALPROEX ER 250 MG TAB PO SCH ×2 (13:28→21:41)
[2020-01-22] MEDS: ACETAMINOPHEN 500 MG TAB PO PRN (16:59)
--- NOTE | 2020-01-22 17:07 | P.PN ---
Subjective Date of Service: 01/22/20 Primary Care Provider: Unknown; TURNER Chief Complaint: ESBL in urine Subjective: Improving (Doing well. Recovered from COVID infection. Hx of ESBL andDVT. No new comlaints) Review of Systems Unremarkable General: Weakness Physical Examination - Vital Signs Temperature: 97.4 F Blood Pressure: 132/73 Pulse: 65 Respirations: 18 Pulse Ox (%): 97 - Physical Exam General: Alert, In no apparent distress, Oriented x3 Neck: Supple Respiratory: Clear to auscultation bilaterally Cardiovascular: No edema, Regular rate/rhythm - Studies Microbiology Data (last 24 hrs): 01/20/20 08:06 Clean Catch Urine [place] Count - Final >100,000 CFU/ML. 01/20/20 08:06 Clean Catch Urine - Final Escherichia Coli Esbl Medications List Reviewed: Yes Assessment & Plan - Problems (Diagnosis) (1) ESBL (extended spectrum beta-lactamase) producing bacteria infection Current Visit: Yes Status: Acute Plan: Recuurent ESBL infection. PT has a PICline. Renal function is improving. on D5 water. Mildly anemic with stable vital signs. On MEropenem. (2) DVT (deep venous thrombosis) Current Visit: No Status: Acute Plan: HX of DVT last admission. Currently on no anticoagulation. Will review with pharmacy and patient about durationof anticoagulation Qualifiers: DVT location: lower extremity Affected thrombotic vein of extremity: femoral Physician Review Additional Text: Impression: Fatigue, polyuria secondary to sepsis related to UTI with bacteremia suspect recurrent ESBL, current urine and blood culture showing Gram-negative tl Acute on chronic renal disease stage IV with dehydration Acute on chronic hypernatremia Diabetes mellitus type 2 insulin-dependent Hypotension related to sepsis with history of hypertension Schizophrenia Anemia of chronic disease with iron deficiency History of sacral pressure ulcer Hx of COVID 19 infection with prior complex hospitalization Plan: Fatigue, polyuria secondary to sepsis related to UTI with bacteremia suspect recurrent ESBL, current urine and blood culture showing gram-negative tl: Blood pressure improved. Patient no longer in sepsis. Patient appears back to baseline. Blood and urine cultures reviewed. Gram-negative rods noted. Suspect recurrent ESBL. Patient on meropenem. PICC line placed yesterday. Patient with hypernatremia with history of hypernatremia in the past. Will change IV fluids to D5 W. Will discuss further with nephrology. Recheck lab later today. Patient also iron deficient. Will add iron supplementation. Patient with underlying schizophrenia but mentally stable. Continue to monitor closely. Will have wound care addressed chronic sacral ulcer. Anticipate improvement over the next 3 days. Likely discharge home with IV antibiotic therapy for 2 weeks. Case discussed with patient and sister who takes care the patient. I will turn the service over to the hospitalist team tomorrow. I will go over plan of care with him. Acute on chronic renal disease stage IV with dehydration: Patient with hypernatremia. Will change IV fluids to D5 W. Recheck lab later today. Renal function improved. Will discuss further with nephrology. Await further recommendations. Acute on chronic hypernatremia: Patient with history of hypernatremia on last admission. Will change IV fluids to D5 W. Recheck lab later today. Will discuss further with nephrology on further recommendations. Diabetes mellitus type 2 insulin-dependent: Continue monitor Accu-Cheks. Sliding scale in place. Will check A1c. Continue to hold basal insulin. Blood sugars controlled. Hypotension related to sepsis with history of hypertension: Blood pressure improved. Blood pressure stable. Will hold blood pressure medication- metoprolol 12.5 mg 1 pill twice daily at this time. Will need to restart medication if blood pressure elevated. Schizophrenia: [place] level stable. Continue with home medication including lithium, Depakote, trazodone and doxepin. Anemia of chronic disease with iron deficiency: Will start oral iron supplementation. Will monitor hemoglobin. Transfuse if hemoglobin below 7.0. History of sacral pressure ulcer: Will have wound care evaluate and document pressure ulcer. Patient has received treatment for this in the past including surgery-debridement. Hx of COVID 19 infection with prior complex hospitalization: Retest negative. Monitor closely. Chest x-ray unremarkable. Maintain oxygen above 93%.
[2020-01-22] MEDS: LITHIUM CARBONATE 300 MG TAB PO SCH (21:42)
[2020-01-23] MEDS: D5W 1,000 ML IV SCH ×5 (00:28→22:30)
[2020-01-23 04:47] LABS: Absolute Lymphocytes (CBC) 1.8 K/uL (0.7-4.9); Basophils % 0.4 % (0-1.3); Hematocrit 24.8 % (39.6-49.0); Lymphocytes % 16.8 % (15.3-44.8); MPV 6.2 fL (7.6-11.3); RBC Red Blood Cell Count 2.79 M/uL (4.33-5.43)
[2020-01-23 05:02] LABS: Potassium 4.1 mmol/L (3.5-5.1)
[2020-01-23] MEDS: INSULIN -REGULAR HUMAN 50 UNIT/0.5 ML ML SQ SCH ×3 (07:30→21:59)
[2020-01-23] MEDS: Meropenem 1,000 MG in NA CHLORIDE 0.9% 100 ML IV SCH ×2 (08:32→21:56)
[2020-01-23] MEDS: FOLIC ACID 1 MG TABLET PO SCH ×3 (08:36→21:57)
[2020-01-23] MEDS: ASPIRIN EC 81 MG TAB PO SCH (08:36)
[2020-01-23] MEDS: DIVALPROEX ER 250 MG TAB PO SCH ×2 (08:37→21:58)
[2020-01-23] MEDS: TRAZODONE 50 MG TABLET PO SCH ×2 (08:37→21:57)
[2020-01-23] MEDS: ATORVASTATIN 10 MG TAB PO SCH (08:37)
[2020-01-23] MEDS: FERROUS SULFATE 325 MG TAB PO SCH ×2 (08:37→21:57)
[2020-01-23] MEDS: JUVEN PACKET PO SCH ×2 (08:41→22:00)
[2020-01-23] MEDS: HEPARIN 5000 UNIT/ML 1 ML VIAL SQ SCH (08:43)
[2020-01-23] MEDS: THIAMINE HCL 100 MG TABLET PO SCH (08:48)
[2020-01-23] MEDS: FAMOTIDINE 20 MG TAB PO SCH (08:48)
--- NOTE | 2020-01-23 10:27 | P.PN ---
Subjective Date of Service: 01/23/20 Primary Care Provider: Unknown; TURNER Chief Complaint: ESBL in urine blood Patient has no complaint blood cultures are positive including urine cultures for ESBL Review of Systems Unremarkable Physical Examination - Vital Signs Temperature: 97.9 F Blood Pressure: 120/67 Pulse: 71 Respirations: 18 Pulse Ox (%): 99 - Physical Exam General: Alert, In no apparent distress, Oriented x3 Respiratory: Clear to auscultation bilaterally Cardiovascular: No edema, Regular rate/rhythm, Normal S1 S2 Capillary refill: >2 Seconds Gastrointestinal: Soft and benign - Studies Microbiology Data (last 24 hrs): 01/20/20 08:21 Blood - Blood Aerobic Blood Culture - Final Escherichia Coli Esbl 01/20/20 08:21 Blood - Blood Blood Culture Gram Stain - Final 01/20/20 08:21 Blood - Blood Anaerobic Blood Culture - Final Escherichia Coli Esbl 01/20/20 08:21 Blood - Blood Gram Stain - Final 01/20/20 08:06 Blood - Blood Aerobic Blood Culture - Final Escherichia Coli Esbl 01/20/20 08:06 Blood - Blood Blood Culture Gram Stain - Final 01/20/20 08:06 Blood - Blood Anaerobic Blood Culture - Final Escherichia Coli Esbl 01/20/20 08:06 Blood - Blood Gram Stain - Final 01/20/20 08:06 Clean Catch Urine [place] Count - Final >100,000 CFU/ML. 01/20/20 08:06 Clean Catch Urine - Final Escherichia Coli Esbl Medications List Reviewed: Yes Assessment & Plan - Problems (Diagnosis) (1) ESBL (extended spectrum beta-lactamase) producing bacteria infection Current Visit: Yes Status: Acute Plan: Patient is now positive for the ESBL and cultured in the blood and urine these recurrent infection continue with meropenem PICC line is in place the need home antibiotic therapy for at least 14 days patient has renal insufficiency and meropenem 1000 mg b.i.d. (2) DVT (deep venous thrombosis) Current Visit: No Status: Acute Plan: Patient takes dabigatran at home will resume Qualifiers: DVT location: lower extremity Affected thrombotic vein of extremity: femoral (3) Diabetes insipidus Current Visit: Yes Status: Acute Plan: Patient is on desmopressin
[2020-01-23] MEDS: DABIGATRAN 75 MG CAP PO SCH ×2 (14:30→21:58)
[2020-01-23] MEDS: LITHIUM CARBONATE 300 MG TAB PO SCH (21:58)
[2020-01-24] MEDS: D5W 1,000 ML IV SCH (01:00)
[2020-01-24 07:27] LABS: Hematocrit 24.8 % (39.6-49.0)
[2020-01-24 07:29] LABS: MPV 6.1 fL (7.6-11.3)
[2020-01-24] MEDS: INSULIN -REGULAR HUMAN 50 UNIT/0.5 ML ML SQ SCH ×4 (07:30→21:00)
[2020-01-24] MEDS: DABIGATRAN 75 MG CAP PO SCH ×2 (09:00→21:31)
[2020-01-24] MEDS: Meropenem 1,000 MG in NA CHLORIDE 0.9% 100 ML IV SCH ×2 (09:33→21:32)
[2020-01-24] MEDS: DIVALPROEX ER 250 MG TAB PO SCH ×2 (09:34→21:00)
[2020-01-24] MEDS: ASPIRIN EC 81 MG TAB PO SCH (09:35)
[2020-01-24] MEDS: FOLIC ACID 1 MG TABLET PO SCH ×3 (09:35→21:32)
[2020-01-24] MEDS: TRAZODONE 50 MG TABLET PO SCH ×2 (09:35→21:32)
[2020-01-24] MEDS: THIAMINE HCL 100 MG TABLET PO SCH (09:35)
[2020-01-24] MEDS: ATORVASTATIN 10 MG TAB PO SCH (09:35)
[2020-01-24] MEDS: FAMOTIDINE 20 MG TAB PO SCH (09:35)
[2020-01-24] MEDS: FERROUS SULFATE 325 MG TAB PO SCH ×2 (09:35→21:32)
[2020-01-24] MEDS: JUVEN PACKET PO SCH ×2 (09:36→21:36)
[2020-01-24 12:49] LABS: Absolute Lymphocytes (CBC) 2.4 K/uL (0.7-4.9); Basophils % 1.3 % (0-1.3); Hematocrit 26.4 % (39.6-49.0); Lymphocytes % 19.7 % (15.3-44.8); MPV 6.2 fL (7.6-11.3)
[2020-01-24 13:21] LABS: ALT/SGPT 19 U/L (12-78); AST/SGOT 17 U/L (15-37); Albumin 1.8 g/dL (3.4-5.0); Alkaline Phosphatase 58 U/L (45-117); Bilirubin Direct < 0.1 mg/dL (0-0.2); Bilirubin Total 0.3 mg/dL (0.2-1.0); Protein, Total 8.1 g/dL (6.4-8.2)
[2020-01-24 13:35] LABS: Protime INR 1.32
[2020-01-24 13:46] LABS: Blood Morphology Comment NOT SEEN (NOT SEEN); Platelet Estimate ADEQ
[2020-01-24] MEDS: LITHIUM CARBONATE 300 MG TAB PO SCH (21:36)
--- NOTE | 2020-01-24 23:31 | P.PN ---
Subjective Date of Service: 01/24/20 Primary Care Provider: Unknown; TURNER Chief Complaint: ESBL in urine Pt seen and examined. No chest pain, shortness of breath, nausea, vomiting. Review of Systems 10-point ROS is otherwise unremarkable Physical Examination - Vital Signs Temperature: 97.8 F Blood Pressure: 104/75 Pulse: 86 Respirations: 16 Pulse Ox (%): 100 - Physical Exam General: Alert, In no apparent distress HEENT: Atraumatic, PERRLA, EOMI Neck: Supple, JVD not distended Respiratory: Clear to auscultation bilaterally, Normal air movement Cardiovascular: Regular rate/rhythm, Normal S1 S2 Gastrointestinal: Normal bowel sounds, No tenderness Musculoskeletal: No tenderness Integumentary: No rashes Neurological: Abnormal gait - Studies Medications List Reviewed: Yes Assessment & Plan Physician Review Additional Text: Problems Acute kidney injury mostly prerenal Hypernatremia suspect DI Diabetes insipides Dehydration Urinary tract infection sepsis Plan d/c d5w continue to liberalize oral fluid Strict i/o Treat urinary tract infection Avoid nephrotoxins including acei/arb, nsaids, fleets enema Daily monitoring of electrolytes
[2020-01-25 05:24] LABS: Potassium 4.1 mmol/L (3.5-5.1)
[2020-01-25] MEDS: INSULIN -REGULAR HUMAN 50 UNIT/0.5 ML ML SQ SCH ×4 (07:30→19:54)
[2020-01-25] MEDS: DABIGATRAN 75 MG CAP PO SCH ×2 (09:00→19:44)
[2020-01-25] MEDS: THIAMINE HCL 100 MG TABLET PO SCH (09:00)
[2020-01-25] MEDS: MEDIHONEY 44 ML TOPICAL TUBE TOP SCH (09:00)
[2020-01-25] MEDS: Meropenem 1,000 MG in NA CHLORIDE 0.9% 100 ML IV SCH ×2 (09:00→19:45)
[2020-01-25] MEDS: FAMOTIDINE 20 MG TAB PO SCH (09:00)
[2020-01-25] MEDS: ASPIRIN EC 81 MG TAB PO SCH (09:00)
[2020-01-25] MEDS: JUVEN PACKET PO SCH ×2 (09:01→19:45)
[2020-01-25] MEDS: TRAZODONE 50 MG TABLET PO SCH ×2 (09:01→19:44)
[2020-01-25] MEDS: FERROUS SULFATE 325 MG TAB PO SCH ×2 (09:01→19:43)
[2020-01-25] MEDS: ATORVASTATIN 10 MG TAB PO SCH (09:01)
[2020-01-25] MEDS: FOLIC ACID 1 MG TABLET PO SCH ×3 (09:01→19:44)
[2020-01-25] MEDS: DIVALPROEX ER 250 MG TAB PO SCH ×2 (09:01→19:44)
--- NOTE | 2020-01-25 17:15 | P.PN ---
Subjective Date of Service: 01/24/20 Subjective: No new changes, No C/O voiced, Improving Patient clinically doing better. Patient with no new complaints. Patient and his sister were explained that we were working on half-way facility placement. They do not have the ability to pay for medications at home. They were contemplating to staying in the hospital to finish his antibiotic course. We did speak to them about needing a carbapenems to cure the ESBL E. coli in his blood. Review of Systems 10-point ROS is otherwise unremarkable Physical Examination - Vital Signs Temperature: 97.8 F Blood Pressure: 105/73 Pulse: 91 Respirations: 18 Pulse Ox (%): 100 - Physical Exam General: Alert, In no apparent distress, Oriented x2 Respiratory: Clear to auscultation bilaterally, Normal air movement Cardiovascular: Regular rate/rhythm, Normal S1 S2, No murmurs Gastrointestinal: Normal bowel sounds, Soft and benign, Non-distended, No tenderness Musculoskeletal: No clubbing, No swelling, No tenderness Integumentary: Pressure ulcer (Stage II decubitus ulcer) Neurological: Sensation intact, Cranial nerves 3-12 intact - Studies Medications List Reviewed: Yes Assessment & Plan - Problems (Diagnosis) (1) Bacteremia due to Gram-negative bacteria Current Visit: Yes Status: Acute (2) ESBL (extended spectrum beta-lactamase) producing bacteria infection Current Visit: Yes Status: Acute (3) Acute renal failure superimposed on chronic kidney disease Current Visit: Yes Status: Acute (4) DVT (deep venous thrombosis) Current Visit: No Status: Acute Qualifiers: DVT location: lower extremity Affected thrombotic vein of extremity: femoral (5) Diabetes mellitus type II, uncontrolled Onset Date: 06/24/14 Current Visit: No Status: Acute - Plan Plan: 1. Continue with IV fluids 2. Continue antibiotics 3. Wound care 4. Pain control 5. Arrangements for half-way facility placement Discharge Plan: Home Plan to discharge in: Greater than 2 days - Advance Directives Does patient have a Living Will: No Does patient have a Durable POA for Healthcare: No - Code Status/Comfort Care Code Status Assessed: Yes Code Status: Full Code Critical Care: No Time Spent Managing PTS Care (In Minutes): 35
--- NOTE | 2020-01-25 17:17 | P.PN ---
Subjective Date of Service: 01/25/20 Patient is doing well with no complaints. Spoke to his sister who prefers going to a long-term facility. At this time patient needs a few more days of antibiotic therapy and continued wound care. Awaiting for these arrangements to be completed Review of Systems 10-point ROS is otherwise unremarkable Physical Examination - Vital Signs Temperature: 97.8 F Blood Pressure: 105/73 Pulse: 91 Respirations: 18 Pulse Ox (%): 100 - Physical Exam General: Alert, In no apparent distress, Oriented x3 Respiratory: Clear to auscultation bilaterally, Normal air movement Cardiovascular: Regular rate/rhythm, Normal S1 S2, No murmurs Gastrointestinal: Normal bowel sounds, Soft and benign, Non-distended, No tenderness Musculoskeletal: No clubbing, No swelling, No tenderness Neurological: Sensation intact, Cranial nerves 3-12 intact - Studies Medications List Reviewed: Yes Assessment & Plan - Problems (Diagnosis) (1) Bacteremia due to Gram-negative bacteria Current Visit: Yes Status: Acute (2) ESBL (extended spectrum beta-lactamase) producing bacteria infection Current Visit: Yes Status: Acute (3) Acute renal failure superimposed on chronic kidney disease Current Visit: Yes Status: Acute (4) DVT (deep venous thrombosis) Current Visit: No Status: Acute Qualifiers: DVT location: lower extremity Affected thrombotic vein of extremity: femoral (5) Diabetes mellitus type II, uncontrolled Onset Date: 06/24/14 Current Visit: No Status: Acute - Plan Plan: 1. Continue with IV fluids-change to D5 water; will probably discontinue 2. Continue antibiotics 3. Wound care 4. Pain control 5. Arrangements for long-term facility placement 6. Monitor H&H weekly Discharge Plan: Residential Plan to discharge in: 48 Hours - Advance Directives Does patient have a Living Will: No Does patient have a Durable POA for Healthcare: No - Code Status/Comfort Care Code Status: Full Code
[2020-01-25] MEDS: LITHIUM CARBONATE 300 MG TAB PO SCH (19:44)
[2020-01-26] MEDS: INSULIN -REGULAR HUMAN 50 UNIT/0.5 ML ML SQ SCH ×3 (07:30→16:30)
[2020-01-26] MEDS ORDERED: D5W 1,000 ML IV SCH (09:00)
[2020-01-26] MEDS: MEDIHONEY 44 ML TOPICAL TUBE TOP SCH (11:00)
[2020-01-26] MEDS: Meropenem 1,000 MG in NA CHLORIDE 0.9% 100 ML IV SCH (11:00)
[2020-01-26] MEDS: THIAMINE HCL 100 MG TABLET PO SCH (11:01)
[2020-01-26] MEDS: DIVALPROEX ER 250 MG TAB PO SCH (11:01)
[2020-01-26] MEDS: JUVEN PACKET PO SCH (11:01)
[2020-01-26] MEDS: TRAZODONE 50 MG TABLET PO SCH (11:01)
[2020-01-26] MEDS: ATORVASTATIN 10 MG TAB PO SCH (11:01)
[2020-01-26] MEDS: FAMOTIDINE 20 MG TAB PO SCH (11:01)
[2020-01-26] MEDS: DABIGATRAN 75 MG CAP PO SCH (11:02)
[2020-01-26] MEDS: ASPIRIN EC 81 MG TAB PO SCH (11:02)
[2020-01-26] MEDS: FERROUS SULFATE 325 MG TAB PO SCH (11:02)
[2020-01-26] MEDS: FOLIC ACID 1 MG TABLET PO SCH ×2 (11:02→13:26)
[2020-01-26 13:27] VITALS: O2SAT 94
--- NOTE | 2020-01-26 13:50 | P.DS ---
Discharge Date: 01/26/20 Primary Care Provider: Unknown; PSYC Disposition: TRANSFER TO SNF - MEDICAL Discharge Condition: GOOD Reason for Admission: ESBL in urine Consultations: Nephrology - Problems (1) Bacteremia due to Gram-negative bacteria Status: Acute (2) ESBL (extended spectrum beta-lactamase) producing bacteria infection Status: Acute (3) Acute renal failure superimposed on chronic kidney disease Status: Acute (4) DVT (deep venous thrombosis) Status: Acute Qualifiers: DVT location: lower extremity Affected thrombotic vein of extremity: femoral (5) Diabetes mellitus type II, uncontrolled Onset Date: 06/24/14 Status: Acute Brief History of Present Illness: Patient is a 59-year-old male with history of COVID 19 infection in August 2019. That hospitalization was complex with the patient having UTI- ESBL, sacral unstageable pressure ulcer, acute respiratory failure, acute on chronic renal failure, acute right lower extremity DVT, diabetes mellitus type 2, and hypertension. Patient with history of schizophrenia. The patient at that time went to a long-term acute care facility. He was then transition to skilled facility. The patient recently transition home. Over the last several days, patient has noted increased polyuria and fatigue. Patient denies any nausea, vomiting, abdominal pain, chest pain or shortness of breath. He denies any fever. He is brought to the ER for further evaluation. In the ER patient was evaluated. Blood pressure slightly low. White count 16. Hemoglobin 8.7. Sodium 137 come potassium 4.1. BUN of 23, creatinine 2.7 with a GFR 24. Urinalysis was positive for bacteria. Pro calcitonin normal at 0.13 with the lactic acid normal at 1.5. Troponin unremarkable. CRP elevated. Chest x-ray unremarkable. Patient was started on sepsis protocol. 30 milligram/kilograms IV bolus was given. Patient admitted for further evaluation and treatment. When I saw the patient ER, patient appeared stable. Blood pressure around 100 systolic. Patient afebrile. Patient not tachycardic. Most of the history came from the patient and sister. He reports that he was recently tested for COVID last week which was negative. Hospital Course: At this time, patient is doing well. Continue with antibiotic therapy. Continue with wound care. Outpatient follow up at a [facility] placement for continued aggressive treatment for patient's wound with antibiotics and wound care. Vital Signs/Physical Exam: Temp Pulse Resp BP Pulse Ox 97.8 F 91 H 18 105/73 100 01/26/20 08:30 01/26/20 08:30 01/26/20 08:30 01/26/20 08:30 01/26/20 08:30 General: Alert, In no apparent distress Respiratory: Clear to auscultation bilaterally, Normal air movement Cardiovascular: Regular rate/rhythm Laboratory Data at Discharge: WBC 12.1 K/uL (4.3-10.9) H 01/24/20 12:03 Hgb 8.6 g/dL (13.6-17.9) L 01/24/20 12:03 Hct 26.4 % (39.6-49.0) L 01/24/20 12:03 Plt Count 306 K/uL (152-406) 01/24/20 12:03 PT 15.5 SECONDS (9.5-12.5) H 01/24/20 12:42 INR 1.32 01/24/20 12:42 APTT 44.2 SECONDS (24.3-36.9) H 01/24/20 12:42 Sodium 147 mmol/L (136-145) H 01/26/20 03:58 Potassium 4.0 mmol/L (3.5-5.1) 01/26/20 03:58 BUN 27 mg/dL (7-18) H 01/26/20 03:58 Creatinine 1.78 mg/dL (0.55-1.3) H 01/26/20 03:58 Glucose 118 mg/dL (74-106) H 01/26/20 03:58 Magnesium 2.0 mg/dL (1.8-2.4) 01/23/20 04:29 Total Bilirubin 0.3 mg/dL (0.2-1.0) 01/24/20 12:03 AST 17 U/L (15-37) 01/24/20 12:03 ALT 19 U/L (12-78) 01/24/20 12:03 Alkaline Phosphatase 58 U/L (45-117) 01/24/20 12:03 Amylase 34 U/L (25-115) 01/20/20 08:21 Lipase 36 U/L (73-393) L 01/20/20 08:21 Home Medications: Divalproex Sodium [Depakote ER] 1 tab PO DAILY 08/22/19 Divalproex Sodium [Depakote ER] 2 tab PO BEDTIME 08/22/19 Aspirin [Aspirin EC 81 MG] 81 mg PO DAILY 01/20/20 Atorvastatin Calcium 10 mg PO DAILY 01/20/20 Doxepin HCl 50 mg PO BID PRN 01/20/20 Famotidine 20 mg PO DAILY 01/20/20 Folic Acid 1 mg PO TID 01/20/20 Insulin Glargine,Hum.rec.anlog [Lantus Solostar] 30 units SQ BEDTIME 01/20/20 [place] Carbonate [Lithotabs *] 300 mg PO BEDTIME 01/20/20 Metoprolol Tartrate 12.5 mg PO BID 01/20/20 Trazodone [Desyrel*] 50 mg PO BID 01/20/20 Dabigatran Etexilate Mesylate [Pradaxa*] 75 mg PO BID #60 cap 01/25/20 Jm [Jm*] 1 pkt PO BID #60 powd.pack 01/25/20 Meropenem [Merrem] 500 mg IV Q8H #27 vial 01/25/20 Thiamine HCl [Vitamin B-1*] 100 mg PO DAILY #30 tablet 01/25/20 New Medications: Jm [Jm*] 1 pkt PO BID #60 powd.pack Meropenem [Merrem] 500 mg IV Q8H #27 vial Dabigatran Etexilate Mesylate [Pradaxa*] 75 mg PO BID #60 cap Thiamine HCl [Vitamin B-1*] 100 mg PO DAILY #30 tablet Patient Discharge Instructions: OK TO DC IV AND DC to penitentiary facility. FOLLOW-UP WITH PRIMARY CARE PROVIDER IN 1-2 WEEKS or to follow-up with [place] physiian in 24 hrs. FOLLOW-UP WITH WOUND HEALING IN 1-2 days. RETURN TO THE ER IF SYMPTOMS WORSEN. CALL or TEXT DR. TORRES AT [phone] IF ANY QUESTIONS REGARDING HOSPITAL STAY. PLEASE CALL THE FLOOR AT [phone] IF ANY MEDICATION OR NURSING QUESTIONS. Diet: ADA Activity: Fall precautions Followup: Unknown,U [Primary Care Provider] - Time spent managing pt's care (in minutes): 35
[2020-02-03 14:50] VITALS: BP 105/73; TEMP 97.8
== END 2020-01-26 06:07 | DRG 872 ==
LOC: ER 07:42 → ERHOLD 10:08 → 2ND 14:58
PROVIDERS: ADMIT Family Medicine; ATTEND Hospitalist
PROC: 02HV33Z Insertion of Infusion Device into Superior Vena Cava, Percutaneous Approach (ICD-10-PCS; principal; 2020-01-21)
DX: A41.51 Sepsis due to Escherichia coli [E. coli] (principal); N39.0 Urinary tract infection, site not specified; Z16.12 Extended spectrum beta lactamase (ESBL) resistance; N18.4 Chronic kidney disease, stage 4 (severe); E87.0 Hyperosmolality and hypernatremia; N17.9 Acute kidney failure, unspecified; F17.200 Nicotine dependence, unspecified, uncomplicated; E23.2 Diabetes insipidus; E11.22 Type 2 diabetes mellitus with diabetic chronic kidney disease; I12.9 Hypertensive chronic kidney disease with stage 1 through stage 4 chronic kidney disease, or unspecified chronic kidney disease; F20.9 Schizophrenia, unspecified; D63.8 Anemia in other chronic diseases classified elsewhere; N28.9 Disorder of kidney and ureter, unspecified; E86.0 Dehydration; D50.9 Iron deficiency anemia, unspecified; Z86.19 Personal history of other infectious and parasitic diseases; Z79.899 Other long term (current) drug therapy; Z79.82 Long term (current) use of aspirin; Z79.4 Long term (current) use of insulin; Z20.828 Contact with and (suspected) exposure to other viral communicable diseases
CPT/HCPCS: 36415; 36569; 71045; 80048; 80076; 80178; 81003; 81015; 82150; 82550; 82553; 82607; 82728; 82947; 83036; 83540; 83605; 83690; 83735; 84145; 84439; 84443; 84466; 84484; 85014; 85018; 85025; 85027; 85610; 85730; 86140; 87040; 87077; 87086; 87088; 87186; 87205; 93005; 94760; 96365; 96366; 96375; 97116; 97161; 97530; 99251; 99285; J0696; J1644; J2185; J2597; J7030; U0003

== ENCOUNTER 2020-07-27 06:46 | Emergency (ER) | payer OTHER ==
[2020-07-27 08:19] LABS: Absolute Lymphocytes (CBC) 0.8 K/uL (0.7-4.9); Basophils % 0.5 % (0-1.3); Hematocrit 40.7 % (39.6-49.0); Lymphocytes % 8.3 % (15.3-44.8); MPV 7.1 fL (7.6-11.3); RBC Red Blood Cell Count 4.74 M/uL (4.33-5.43)
[2020-07-27 08:43] LABS: Potassium 3.6 mmol/L (3.5-5.1)
--- NOTE | 2020-07-27 09:36 | EDPHYS ---
Physician Documentation [facility] Name: Valerio Haney Sr Age: 60 yrs Sex: Male : 1960 Arrival Date: 07/27/2020 Time: 06:51 Bed 20 Private MD: ED Physician Jarret Stock HPI: 07/27 09:22 This 60 yrs old Male presents to ER via EMS with complaints of Fall Injury. kdr 09:22 Details of fall: The patient fell from an upright position, while standing. Onset: The kdr symptoms/episode began/occurred suddenly, just prior to arrival. Associated injuries: The patient sustained Left arm/shoulder. Severity of symptoms: At their worst the symptoms were mild, in the emergency department the symptoms are unchanged. The patient has not experienced similar symptoms in the past. The patient has not recently seen a physician, It is unknown whether or not the patient has recently seen a physician. Historical: - Allergies: 07:00 No Known Allergies; jm8 - Home Meds: 07:00 atorvastatin Oral [Active]; divalproex Oral [Active]; Doxepin Oral [Active]; Famotidine jm8 Oral [Active]; Metoprolol Tartrate Oral [Active]; Ferrous Sulfate Oral [Active]; Folic Acid Oral [Active]; [place] Carbonate Oral [Active]; Trazodone Oral [Active]; - PMHx: 07:00 Bipolar disorder; Diabetes - NIDDM; Hypertension; jm8 - PSHx: 07:00 None; jm8 - Immunization history:: Adult Immunizations up to date, Client reports receiving the 1st dose of the Covid vaccine. - Social history:: Smoking status: Patient/guardian denies using tobacco, the patient reports quitting approximately 1 years ago. ROS: 09:22 Constitutional: Negative for fever, chills, and weight loss, Eyes: Negative for injury, kdr pain, redness, and discharge, Neck: Negative for injury, pain, and swelling, Cardiovascular: Negative for chest pain, palpitations, and edema, Respiratory: Negative for shortness of breath, cough, wheezing, and pleuritic chest pain, Abdomen/GI: Negative for abdominal pain, nausea, vomiting, diarrhea, and constipation, Back: Negative for injury and pain, : Negative for injury, bleeding, discharge, and swelling, Skin: Negative for injury, rash, and discoloration, Neuro: Negative for headache, weakness, numbness, tingling, and seizure activity. Psych: Negative for depression, anxiety, suicide ideation, homicidal ideation, and hallucinations, Allergy/Immunology: Negative for hives, rash, and allergies, Endocrine: Negative for neck swelling, polydipsia, polyuria, polyphagia, and marked weight changes, Hematologic/Lymphatic: Negative for swollen nodes, abnormal bleeding, and unusual bruising. 09:22 MS/extremity: Positive for injury or acute deformity, pain, of the anterior aspect of left shoulder, left bicep, posterior aspect of left shoulder and left tricep. Exam: 09:22 Constitutional: This is a well developed, well nourished patient who is awake, alert, kdr and in no acute distress. Head/Face: Normocephalic, atraumatic. Eyes: Pupils equal round and reactive to light, extra-ocular motions intact. Lids and lashes normal. Conjunctiva and sclera are non-icteric and not injected. Cornea within normal limits. Periorbital areas with no swelling, redness, or edema. Neck: Trachea midline, no thyromegaly or masses palpated, and no cervical lymphadenopathy. Supple, full range of motion without nuchal rigidity, or vertebral point tenderness. No Meningismus. Chest/axilla: Normal chest wall appearance and motion. Nontender with no deformity. No lesions are appreciated. Cardiovascular: Regular rate and rhythm with a normal S1 and S2. No gallops, murmurs, or rubs. Normal PMI, no JVD. No pulse deficits. Respiratory: Lungs have equal breath sounds bilaterally, clear to auscultation and percussion. No rales, rhonchi or wheezes noted. No increased work of breathing, no retractions or nasal flaring. Abdomen/GI: Soft, non-tender, with normal bowel sounds. No distension or tympany. No guarding or rebound. No evidence of tenderness throughout. Back: No spinal tenderness. No costovertebral tenderness. Full range of motion. Skin: Warm, dry with normal turgor. Normal color with no rashes, no lesions, and no evidence of cellulitis. Neuro: Awake and alert, GCS 15, oriented to person, place, time, and situation. Cranial nerves II-XII grossly intact. Motor strength 5/5 in all extremities. Sensory grossly intact. Cerebellar exam normal. Normal gait. Psych: Awake, alert, with orientation to person, place and time. Behavior, mood, and affect are within normal limits. 09:22 Musculoskeletal/extremity: Extremities: grossly normal except: noted in the left bicep and left tricep: pain. Vital Signs: 06:51 BP 161 / 89; Pulse 88; Resp 16; Temp 98.8; Pulse Ox 96% on R/A; Weight 95.25 kg; Height jm8 5 ft. 8 in. (172.72 cm); Pain 0/10; 08:12 BP 156 / 83; Pulse 93; Resp 19; Pulse Ox 95% ; Pain 0/10; rb3 09:05 BP 172 / 88; Pulse 91; Resp 18; Pulse Ox 98% on R/A; rb3 10:04 BP 171 / 74; Pulse 89; Resp 17; Pulse Ox 100% ; rb3 06:51 Body Mass Index 31.93 (95.25 kg, 172.72 cm) jm8 MDM: 09:35 Patient medically screened. kdr 16:42 Data reviewed: vital signs, nurses notes, lab test result(s), radiologic studies. kdr Counseling: I had a detailed discussion with the patient and/or guardian regarding: the historical points, exam findings, and any diagnostic results supporting the discharge/admit diagnosis, lab results, radiology results, the need for outpatient follow up. 07/27 07:41 Order name: CBC with Diff; Complete Time: 09:19 kdr 07/27 07:41 Order name: Chem 7; Complete Time: 09:19 kdr 07/27 07:40 Order name: Shoulder Left (2 View) XRAY kdr 07/27 07:40 Order name: Humerus Left XRAY kdr Administered Medications: No medications were administered Disposition: 07/27/20 09:35 Discharged to Home. Impression: Other slipping, tripping and stumbling and falls, Pain in left shoulder, Hyperosmolality and hypernatremia - chronic. - Condition is Stable. - Discharge Instructions: Musculoskeletal Pain, Hypernatremia, [id number]. - Medication Reconciliation Form, Thank You Letter form. - Follow up: Private Physician; When: 2 - 3 days; Reason: If symptoms return, Further diagnostic work-up, Recheck today's complaints, Continuance of care, Re-evaluation by your physician. - Problem is new. - Symptoms have improved. - Notes: Tylenol or motrin for pain as needed Signatures: Dispatcher [employer] EDJarret Burger MD MD kdr Lynnette Owens, RN RN rb3 Edy Sands RN RN jm8 Corrections: (The following items were deleted from the chart) 09:35 09:35 07/27/2020 09:35 Discharged to Home. Impression: Other slipping, tripping and kdr stumbling and falls; Pain in left shoulder; Hyperosmolality and hypernatremia. Condition is Stable. Forms are Medication Reconciliation Form, Thank You Letter, Antibiotic Education, Prescription Opioid Use. Follow up: Private Physician; When: 2 - 3 days; Reason: If symptoms return, Further diagnostic work-up, Recheck today's complaints, Continuance of care, Re-evaluation by your physician. Problem is new. Symptoms have improved. kdr 10:48 09:35 07/27/2020 09:35 Discharged to Home. Impression: Other slipping, tripping and rb3 stumbling and falls; Pain in left shoulder; Hyperosmolality and hypernatremia - chronic. Condition is Stable. Forms are Medication Reconciliation Form, Thank You Letter, Antibiotic Education, Prescription Opioid Use. Follow up: Private Physician; When: 2 - 3 days; Reason: If symptoms return, Further diagnostic work-up, Recheck today's complaints, Continuance of care, Re-evaluation by your physician. Problem is new. Symptoms have improved. kdr
--- NOTE | 2020-07-27 09:36 | ER ---
Nurse's Notes [facility] Name: Valerio Haney Sr Age: 60 yrs Sex: Male : 1960 Arrival Date: 07/27/2020 Time: 06:51 Bed 20 Private MD: Diagnosis: Other slipping, tripping and stumbling and falls;Pain in left shoulder;Hyperosmolality and hypernatremia-chronic Presentation: 07/27 06:51 Chief complaint: EMS states: they were toned out for a fall at home that happened at 1 jm8 am. Patient states he fell at home and was wedged behind his front door. Patient denies LOC. Complains of no pain other than his left arm. Received first covid shot yesterday. Coronavirus screen: Client denies travel out of the [place] in the last 14 days. At this time, the client does not indicate any symptoms associated with coronavirus-19. Ebola Screen: Patient negative for fever greater than or equal to 101.5 degrees Fahrenheit, and additional compatible Ebola Virus Disease symptoms Patient denies exposure to infectious person. Patient denies travel to an Ebola-affected area in the 21 days before illness onset. Initial Sepsis Screen: Does the patient meet any 2 criteria? No. Patient's initial sepsis screen is negative. Does the patient have a suspected source of infection? No. Patient's initial sepsis screen is negative. Risk Assessment: Do you want to hurt yourself or someone else? Patient reports no desire to harm self or others. Onset of symptoms was July 27, 2020 at 01:00. 06:51 Method Of Arrival: EMS: [facility] 06:51 Acuity: DEWAYNE 3 8 Historical: - Allergies: 07:00 No Known Allergies; jm8 - Home Meds: 07:00 atorvastatin Oral [Active]; divalproex Oral [Active]; Doxepin Oral [Active]; Famotidine jm8 Oral [Active]; Metoprolol Tartrate Oral [Active]; Ferrous Sulfate Oral [Active]; Folic Acid Oral [Active]; [place] Carbonate Oral [Active]; Trazodone Oral [Active]; - PMHx: 07:00 Bipolar disorder; Diabetes - NIDDM; Hypertension; 8 - PSHx: 07:00 None; jm8 - Immunization history:: Adult Immunizations up to date, Client reports receiving the 1st dose of the Covid vaccine. - Social history:: Smoking status: Patient/guardian denies using tobacco, the patient reports quitting approximately 1 years ago. Screenin:00 Abuse screen: Denies threats or abuse. Denies injuries from another. Nutritional jm8 screening: No deficits noted. Tuberculosis screening: No symptoms or risk factors identified. Fall Risk None identified. Assessment: 07:09 General: Appears in no apparent distress. comfortable, Behavior is calm, cooperative. rb3 Pain: Denies pain. Neuro: Level of Consciousness is awake, alert, obeys commands, Oriented to person, place, time, situation. Cardiovascular: Patient's skin is warm and dry. Respiratory: Airway is patent Respiratory effort is even, unlabored, Respiratory pattern is regular, symmetrical. GI: No signs and/or symptoms were reported involving the gastrointestinal system. : No signs and/or symptoms were reported regarding the genitourinary system. 08:00 Reassessment: Patient appears in no apparent distress at this time. Patient and/or rb3 family updated on plan of care and expected duration. Pain level reassessed. Patient is alert, oriented x 3, equal unlabored respirations, skin warm/dry/pink. 08:55 Reassessment: X-ray at the bedside. rb3 08:55 Reassessment: Patient appears in no apparent distress at this time. rb3 09:50 Reassessment: Patient appears in no apparent distress at this time. Patient and/or rb3 family updated on plan of care and expected duration. Pain level reassessed. Patient is alert, oriented x 3, equal unlabored respirations, skin warm/dry/pink. 10:19 Reassessment: Left voicemail for [place] [phone] for transportation. rb3 10:20 Reassessment: Patient has made multiple unsuccessful attempts to call his sister for a ss ride home. [employer] is attempting on another phone at this time. 10:21 Reassessment: Pt cleaned of urinary incontinence. ss 10:29 Reassessment: Discharge pending due to awaiting transportation. rb3 10:33 Reassessment: Sister states that she will be on her way shortly to pick patient up and ss take him home. Vital Signs: 06:51 BP 161 / 89; Pulse 88; Resp 16; Temp 98.8; Pulse Ox 96% on R/A; Weight 95.25 kg; Height 8 5 ft. 8 in. (172.72 cm); Pain 0/10; 08:12 BP 156 / 83; Pulse 93; Resp 19; Pulse Ox 95% ; Pain 0/10; rb3 09:05 BP 172 / 88; Pulse 91; Resp 18; Pulse Ox 98% on R/A; rb3 10:04 BP 171 / 74; Pulse 89; Resp 17; Pulse Ox 100% ; rb3 06:51 Body Mass Index 31.93 (95.25 kg, 172.72 cm) 8 ED Course: 06:51 Patient arrived in ED. 8 06:57 Jarret Stock MD is Attending Physician. kdr 06:58 Triage completed. jm8 07:00 Arm band placed on right wrist. jm8 07:00 Patient has correct armband on for positive identification. Bed in low position. Call [facility] light in reach. Side rails up X2. 07:12 Lynnette Owens, RN is Primary Nurse. rb3 08:00 Inserted saline lock: 20 gauge in right antecubital area, using aseptic technique. rb3 Blood collected. 10:05 Shoulder Left (2 View) XRAY In Process Unspecified. EDMS 10:05 Humerus Left XRAY In Process Unspecified. EDMS 10:48 No provider procedures requiring assistance completed. IV discontinued, intact, rb3 bleeding controlled, No redness/swelling at site. Pressure dressing applied. Administered Medications: No medications were administered Outcome: 09:35 Discharge ordered by . kdr 10:48 Patient left the ED. rb3 10:48 Discharged to home via wheelchair, with family. rb3 10:48 Condition: stable 10:48 Discharge instructions given to patient, Instructed on discharge instructions, follow up and referral plans. Demonstrated understanding of instructions, follow-up care, Prescriptions given X none Signatures: Dispatcher [employer] EDOH Jarret Stock MD MD kdr Kimmie Simon RN RN ss Lynnette Owens, RN RN rb3 Edy Sands RN RN jm8
--- NOTE | 2020-07-27 10:11 | RAD REPORT ---
EXAM DESCRIPTION: RAD - Humerus Left - 07/27/2020 10:06 am CLINICAL HISTORY: Left arm pain status post fall FINDINGS: No fracture is seen
--- NOTE | 2020-07-27 10:12 | RAD REPORT ---
EXAM DESCRIPTION: RAD - Shoulder Left 2 View - 07/27/2020 10:06 am CLINICAL HISTORY: Left shoulder pain status post fall FINDINGS: No fracture or dislocation is seen. Moderate narrowing AC joint. Osteoporosis
[2020-07-27 10:53] VITALS: TEMP 98.8
[2020-07-27 10:58] VITALS: BP 171/74; O2SAT 100
== END 2020-07-27 10:48 | disposition home or self-care (01) ==
LOC: ER 06:46
DX: M25.512 Pain in left shoulder (principal); E23.2 Diabetes insipidus; I10 Essential (primary) hypertension; F31.9 Bipolar disorder, unspecified; W01.0XXA Fall on same level from slipping, tripping and stumbling without subsequent striking against object, initial encounter; Y93.01 Activity, walking, marching and hiking; Z87.891 Personal history of nicotine dependence
CPT/HCPCS: 36415; 80048; 85025; 99284

== ENCOUNTER 2022-01-01 01:10 | Emergency (ER) | payer OTHER ==
[2022-01-01 03:02] LABS: Absolute Lymphocytes (CBC) 2.5 K/uL (0.7-4.9); Hematocrit 41.5 % (39.6-49.0); Lymphocytes % 26.6 % (15.3-44.8); MCV 87.1 fL (80-100); MPV 7.1 fL (7.6-11.3); RBC Red Blood Cell Count 4.76 M/uL (4.33-5.43)
[2022-01-01 03:27] LABS: Troponin High Sensitivity 12.9 pg/mL (<58.9)
[2022-01-01 03:29] LABS: Potassium 4.5 mmol/L (3.5-5.1)
--- NOTE | 2022-01-01 03:35 | ER ---
Nurse's Notes [facility] Name: Valerio Haney Sr Age: 61 yrs Sex: Male : 1960 Arrival Date: 01/01/2022 Time: 01:24 Bed 16 Private MD: Diagnosis: Dizziness and giddiness Presentation: 01/01 01:24 Chief complaint: EMS states: Pt called for a fall at home. pt has an extensive cardiac kd3 history that he was not able to recall. Pt stated he was trying to sit on the bed and lost his balance. pt denies Loc and denies hitting his head. Vitals are stable. blood glucose was 246 on arrival. He is now a\T\o x 4 but still stating he eels weak. Coronavirus screen: Vaccine status: Patient reports receiving the 1st dose of the Covid vaccine. moderna. Ebola Screen: No symptoms or risks identified at this time. Initial Sepsis Screen: Does the patient meet any 2 criteria? No. Patient's initial sepsis screen is negative. Does the patient have a suspected source of infection? No. Patient's initial sepsis screen is negative. Risk Assessment: Do you want to hurt yourself or someone else? Patient reports no desire to harm self or others. Onset of symptoms was January 01, 2022. 01:24 Method Of Arrival: EMS: [facility] kd3 01:24 Acuity: DEWAYNE 3 kd3 Triage Assessment: 01:30 General: Appears in no apparent distress. Behavior is calm, cooperative. Pain: Denies kd3 pain. Neuro: Level of Consciousness is awake, alert, obeys commands, Oriented to person, place, time, situation. Cardiovascular: Patient's skin is warm and dry. Respiratory: Airway is patent Trachea midline Respiratory effort is even, unlabored, Respiratory pattern is regular, symmetrical. Historical: - Allergies: 01:30 No Known Allergies; kd3 - Home Meds: 01:30 metformin 500 mg Oral tab 1 tab daily [Active]; trazodone 50 mg Oral tab 1 tab 2 times kd3 per day [Active]; aspirin 81 mg oral tab 81 mg daily [Active]; atorvastatin 10 mg oral tab 1 tab once daily [Active]; Colace 100 mg oral cap 1 cap once daily [Active]; risperidone 2 mg oral tab 2 tabs once daily [Active]; divalproex 500 mg oral Tb24 1 tab morning [Active]; divalproex 500 mg oral Tb24 2 tabs bedtime [Active]; metoprolol tartrate 25 mg Oral tab 1 tab 2 times per day [Active]; glipizide 5 mg Oral tab 1 tab once daily [Active]; amlodipine 5 mg tab 1 tab once daily [Active]; doxepin 50 mg Oral cap 3 caps bedtime [Active]; lithium carbonate 300 mg Oral cap 1 cap bedtime [Active]; famotidine 20 mg Oral tab 1 tab 2 times per day [Active]; Lantus U-100 Insulin 100 unit/mL Sub-Q crtg [Active]; - PMHx: 01:30 Bipolar disorder; Diabetes - NIDDM; Hypertension; kd3 - Immunization history:: Adult Immunizations up to date. - Social history:: Smoking status: unknown. Screenin:41 Abuse screen: Denies threats or abuse. Denies injuries from another. Nutritional kd3 screening: No deficits noted. Tuberculosis screening: No symptoms or risk factors identified. Fall Risk Fall in past 12 months (25 points). Assessment: 01:30 General: Appears in no apparent distress. comfortable, Behavior is calm, cooperative, jb4 appropriate for age. Pain: Denies pain. Neuro: Level of Consciousness is awake, alert, obeys commands, Oriented to person, place, time, situation. Cardiovascular: Patient's skin is warm and dry. Respiratory: Airway is patent Respiratory effort is even, unlabored, Respiratory pattern is regular, symmetrical. GI: No signs and/or symptoms were reported involving the gastrointestinal system. : No signs and/or symptoms were reported regarding the genitourinary system. EENT: No signs and/or symptoms were reported regarding the EENT system. Derm: Skin is intact, Skin is pink, warm \T\ dry. Musculoskeletal: Circulation, motion, and sensation intact. Range of motion: intact in all extremities. 02:30 Reassessment: Patient appears in no apparent distress at this time. Patient and/or jb4 family updated on plan of care and expected duration. Pain level reassessed. Patient is alert, oriented x 3, equal unlabored respirations, skin warm/dry/pink. 03:59 Reassessment: Patient appears in no apparent distress at this time. Patient and/or jb4 family updated on plan of care and expected duration. Pain level reassessed. Patient is alert, oriented x 3, equal unlabored respirations, skin warm/dry/pink. Vital Signs: 01:24 BP 136 / 68; Pulse 63; Resp 18; Temp 98.3(O); Pulse Ox 98% on R/A; Weight 113.4 kg; kd3 Height 5 ft. 9 in. (175.26 cm); Pain 0/10; 02:45 BP 140 / 80; Pulse 59; Resp 18; Pulse Ox 97% on R/A; jb4 01:24 Body Mass Index 36.92 (113.40 kg, 175.26 cm) kd3 ED Course: 01:24 Patient arrived in ED. kd3 01:24 Zackery Urbina MD is Attending Physician. sp3 01:30 Triage completed. kd3 01:30 Arm band placed on right wrist. kd3 01:41 Patient has correct armband on for positive identification. kd3 01:45 Missed attempt(s): 18 gauge in left antecubital area. 20 gauge in left antecubital jb4 area. Bleeding controlled, band aid applied, catheter tip intact. 02:32 CT Head Brain wo Cont In Process Unspecified. EDMS 02:43 Nolan Beyer, RN is Primary Nurse. jb4 02:45 Inserted saline lock: 20 gauge in left antecubital area, using aseptic technique. Blood kd3 collected. ultrasound guided. 03:59 No provider procedures requiring assistance completed. IV discontinued, intact, jb4 bleeding controlled, No redness/swelling at site. Pressure dressing applied. Administered Medications: No medications were administered Medication: 01:42 VIS not applicable for this client. kd3 Outcome: 03:34 Discharge ordered by . sp3 03:59 Discharged to home via wheelchair, with family. jb4 03:59 Condition: stable 03:59 Discharge instructions given to patient, family, Instructed on discharge instructions, follow up and referral plans. Demonstrated understanding of instructions, follow-up care. 04:07 Patient left the ED. jb4 Signatures: Dispatcher [employer] EDMS Nolan Beyer, RN RN jb4 Zackery Urbina MD MD sp3 Marci Alex RN RN kd3
--- NOTE | 2022-01-01 03:35 | EDPHYS ---
Physician Documentation [facility] Name: Valerio Haney Sr Age: 61 yrs Sex: Male : 1960 Arrival Date: 01/01/2022 Time: 01:24 Bed 16 Private MD: ED Physician Zackery Urbina HPI: 01/01 01:51 This 61 yrs old Male presents to ER via EMS with complaints of dizziness, fall.sp3 01:51 61-year-old male with history of bipolar disease, diabetes, hypertension presents via sp3 EMS for chief complaint dizziness and ground-level fall just prior to arrival. Patient states that he got up to use restroom in the middle of the night and became dizzy and had a slow fall to the ground. He denies any serious injury or trauma including head trauma, neck trauma, chest pain, back pain (other than his chronic back pain from his prior surgery), loss of bowel or bladder control, seizure, syncope, or any other aspect of ROS at this time. Currently patient has no complaints whatsoever and his daughter states that she brought him in "just to get checked out".. Historical: - Allergies: 01:30 No Known Allergies; kd3 - Home Meds: 01:30 metformin 500 mg Oral tab 1 tab daily [Active]; trazodone 50 mg Oral tab 1 tab 2 times kd3 per day [Active]; aspirin 81 mg oral tab 81 mg daily [Active]; atorvastatin 10 mg oral tab 1 tab once daily [Active]; Colace 100 mg oral cap 1 cap once daily [Active]; risperidone 2 mg oral tab 2 tabs once daily [Active]; divalproex 500 mg oral Tb24 1 tab morning [Active]; divalproex 500 mg oral Tb24 2 tabs bedtime [Active]; metoprolol tartrate 25 mg Oral tab 1 tab 2 times per day [Active]; glipizide 5 mg Oral tab 1 tab once daily [Active]; amlodipine 5 mg tab 1 tab once daily [Active]; doxepin 50 mg Oral cap 3 caps bedtime [Active]; lithium carbonate 300 mg Oral cap 1 cap bedtime [Active]; famotidine 20 mg Oral tab 1 tab 2 times per day [Active]; Lantus U-100 Insulin 100 unit/mL Sub-Q crtg [Active]; - PMHx: 01:30 Bipolar disorder; Diabetes - NIDDM; Hypertension; kd3 - Immunization history:: Adult Immunizations up to date. - Social history:: Smoking status: unknown. ROS: 01:55 Constitutional: Negative for fever, chills, and weight loss, Eyes: Negative for injury, sp3 pain, redness, and discharge, ENT: Negative for injury, pain, and discharge, Neck: Negative for injury, pain, and swelling, Cardiovascular: Negative for chest pain, palpitations, and edema, Respiratory: Negative for shortness of breath, cough, wheezing, and pleuritic chest pain, Abdomen/GI: Negative for abdominal pain, nausea, vomiting, diarrhea, and constipation, Back: Negative for injury and pain, MS/Extremity: Negative for injury and deformity, Skin: Negative for injury, rash, and discoloration, Psych: Negative for depression, anxiety, suicide ideation, homicidal ideation, and hallucinations, Allergy/Immunology: Negative for hives, rash, and allergies, Endocrine: Negative for neck swelling, polydipsia, polyuria, polyphagia, and marked weight changes, Hematologic/Lymphatic: Negative for swollen nodes, abnormal bleeding, and unusual bruising. 01:55 All other systems are negative. Exam: 01:55 Constitutional: This is a well developed, well nourished patient who is awake, alert, sp3 and in no acute distress. Head/Face: Normocephalic, atraumatic. Eyes: Pupils equal round and reactive to light, extra-ocular motions intact. Lids and lashes normal. Conjunctiva and sclera are non-icteric and not injected. Cornea within normal limits. Periorbital areas with no swelling, redness, or edema. Neck: Trachea midline, no thyromegaly or masses palpated, and no cervical lymphadenopathy. Supple, full range of motion without nuchal rigidity, or vertebral point tenderness. No Meningismus. Chest/axilla: Normal chest wall appearance and motion. Nontender with no deformity. No lesions are appreciated. Cardiovascular: Regular rate and rhythm with a normal S1 and S2. No gallops, murmurs, or rubs. Normal PMI, no JVD. No pulse deficits. Respiratory: Lungs have equal breath sounds bilaterally, clear to auscultation and percussion. No rales, rhonchi or wheezes noted. No increased work of breathing, no retractions or nasal flaring. Abdomen/GI: Soft, non-tender, with normal bowel sounds. No distension or tympany. No guarding or rebound. No evidence of tenderness throughout. Skin: Warm, dry with normal turgor. Normal color with no rashes, no lesions, and no evidence of cellulitis. MS/ Extremity: Pulses equal, no cyanosis. Neurovascular intact. Full, normal range of motion. Neuro: Awake and alert, GCS 15, oriented to person, place, time, and situation. Cranial nerves II-XII grossly intact. Motor strength 5/5 in all extremities. Sensory grossly intact. Cerebellar exam normal. Normal gait. Psych: Awake, alert, with orientation to person, place and time. Behavior, mood, and affect are within normal limits. 01:55 Neuro: Currently no symptoms of induced vertigo. There is no nystagmus.. Vital Signs: 01:24 BP 136 / 68; Pulse 63; Resp 18; Temp 98.3(O); Pulse Ox 98% on R/A; Weight 113.4 kg; kd3 Height 5 ft. 9 in. (175.26 cm); Pain 0/10; 02:45 BP 140 / 80; Pulse 59; Resp 18; Pulse Ox 97% on R/A; jb4 01:24 Body Mass Index 36.92 (113.40 kg, 175.26 cm) kd3 MDM: 01:30 Patient medically screened. sp3 01:56 Data reviewed: vital signs, nurses notes. ED course: 61-year-old male with sp3 vertigo/dizziness and ground-level mechanical fall without injury. Will obtain CT scan of the head and routine laboratory values and an EKG. Differential diagnosis includes general vertigo, near syncope, orthostatic hypotension, CVA, ICH, heart disease, among others. Clinically have ruled out sepsis, ACS shock, any other critical findings at this time. Likely discharge if work-up is complete and patient is ambulatory.. 03:33 ED course: Patient is feeling better. Laboratory values reviewed and demonstrates sp3 creatinine of 1.6 slightly higher than normal. This does not explain his symptoms however the symptoms are now resolved. CT scan of the head is negative and remainder of labs are normal. Will discharge patient home to PCP follow-up at this time.. 01/01 01:30 Order name: Basic Metabolic Panel; Complete Time: 03:33 sp3 01/01 01:30 Order name: CBC with Diff sp3 01/01 01:30 Order name: High Sensitivity Troponin; Complete Time: 03:33 sp3 01/01 02:45 Order name: Glucose, Ancillary Testing; Complete Time: 03:00 EDMS 01/01 03:07 Order name: Manual Differential EDMS 01/01 03:44 Order name: Urine Dipstick-Ancillary EDMS 01/01 01:30 Order name: EKG; Complete Time: 01:31 sp3 01/01 01:30 Order name: Cardiac monitoring; Complete Time: 02:00 sp3 01/01 01:30 Order name: EKG - Nurse/Tech; Complete Time: 02:00 sp3 01/01 01:30 Order name: IV Saline Lock; Complete Time: 02:57 sp3 01/01 01:30 Order name: Labs collected and sent; Complete Time: 02:57 sp3 01/01 01:30 Order name: NPO; Complete Time: 02:00 sp3 01/01 01:30 Order name: CT Head Brain wo Cont sp3 Administered Medications: No medications were administered Disposition Summary: 01/01/22 03:34 Discharge Ordered Location: Home sp3 Condition: Stable sp3 Diagnosis - Dizziness and giddiness sp3 Followup: sp3 - With: Private Physician - When: Upon discharge from the Emergency Department - Reason: Continuance of care Discharge Instructions: - Discharge Summary Sheet sp3 - Dizziness sp3 Forms: - Medication Reconciliation Form sp3 - Thank You Letter sp3 - Antibiotic Education sp3 - Prescription Opioid Use sp3 Signatures: Dispatcher [employer] EDZackery Domingo MD MD sp3 Marci Alex, RN RN kd3
[2022-01-01 03:43] LABS: Blood Morphology Comment NOT SEEN (NOT SEEN); Platelet Estimate ADEQ
[2022-01-01 03:43] LABS: Urine Blood Trace-lysed (Negative); Urine Glucose Trace (Negative); Urine Protein Negative (Negative)
[2022-01-01 04:58] VITALS: BP 140/80; O2SAT 97
[2022-01-01 05:22] VITALS: TEMP 98.3
--- NOTE | 2022-01-01 13:15 | RAD REPORT ---
EXAM DESCRIPTION: CT - Head Brain Wo Cont - 01/01/2022 2:31 am CLINICAL HISTORY: 61 years, Male, Vertigo COMPARISON: 08/22/2019. FINDINGS: Multiple transaxial tomograms of the brain were obtained from the base of the skull to the vertex without contrast. 2-D multiplanar reformats and the coronal and sagittal plane were performed and reviewed. This exam was performed according to our departmental dose-optimization protocol, which includes auto mated exposure control, adjustment of the mA and/or kV according to patient size and/or use of iterat torres reconstruction technique. Some of the images are compromised by motion artifact. Otherwise the brain parenchyma demonstrate mil d prominence of the sulci and gyri are corresponding to mild cerebral and cerebellar atrophy. There i s minimal periventricular white matter changes of microvascular ischemia. There is no midline shift a nd/or mass effect. There is no evidence for acute intracranial hemorrhage. Lateral ventricles and c isterns displace normal appearance. No intra or extra axial fluid collections were seen. The calvar ium is intact with no evidence for fracture. The visualized portions of the paranasal sinuses and orb its demonstrate to be clear. IMPRESSION: No acute intracranial hemorrhage identified. Mild brain atrophy with minimal periventricular white matter changes of microvascular ischemia. Electronically signed by: Elie Davis MD 01/01/2022 2:49 AM PRIME MINISTER Due to temporary technical issues with the PACS/Fluency reporting system, reports are being signed by the in house radiologists without review as a courtesy to insure prompt reporting. The interpreting radiologist is fully responsible for the content of the report.
--- NOTE | 2022-01-01 13:55 | EKG ---
Test Date: 2022-01-01 Test Time: 01:52:59 Inspector Fibrous Wallboard: SHANTHI MEASUREMENT RESULTS: Intervals: Rate: 56 VT: 202 QRSD: 150 QT: 456 QTc: 440 [place]: P: 22 VT: 202 QRS: -17 T: 19 INTERPRETIVE STATEMENTS: Sinus bradycardia Right bundle branch block Abnormal ECG Compared to ECG 01/20/2020 08:08:06 Sinus rhythm no longer present Electronically Signed On 01-01-22 13:54:07 SECURITY THREAT ANALYST by Dusty Leonard
== END 2022-01-01 04:07 | disposition home or self-care (01) ==
LOC: ER 01:10
DX: R42 Dizziness and giddiness (principal); I10 Essential (primary) hypertension; E11.9 Type 2 diabetes mellitus without complications; F31.9 Bipolar disorder, unspecified
CPT/HCPCS: 36415; 70450; 80048; 81003; 82947; 84484; 85025; 93005; 99284

== ENCOUNTER 2023-01-02 14:25 | Emergency (ER) | payer OTHER ==
--- NOTE | 2023-01-02 15:57 | RAD REPORT ---
EXAM DESCRIPTION: CT - Head Brain Wo Cont - 01/02/2023 2:59 pm CLINICAL HISTORY: fall COMPARISON: Head Brain Wo Cont dated 01/01/2022; Head Brain Wo Cont dated 08/22/2019 TECHNIQUE: Noncontrast head CT images were obtained without IV contrast. Multiplanar reformats were generated and reviewed. All CT scans are performed using dose optimization technique as appropriate and may include automated exposure control or mA/KV adjustment according to patient size. FINDINGS: No intracranial hemorrhage, mass, or edema. Midline structures are unremarkable. Stable ventricular caliber with mild diffuse parenchymal volume loss. Daigle-white matter differentiation is preserved, without evidence of acute infarct. No abnormal extra- axial fluid collections. Mastoid air cells and visualized portions of the paranasal sinuses are clear. No acute bony findings. Hyperostosis frontalis interna again seen. IMPRESSION: No evidence of an acute intracranial process.
--- NOTE | 2023-01-02 16:08 | ER ---
Nurse's Notes [facility] Name: Valerio Haney Sr Age: 62 yrs Sex: Male : 1960 Arrival Date: 01/02/2023 Time: 14:25 Bed 13 Private MD: Diagnosis: Intertrochanteric fracture of femur;Fall on same level, unspecified Presentation: 01/02 14:36 Chief complaint: EMS states: Left hip pain 11/03. Fell at 1330 - EMS toned out at 1430. ld1 Coronavirus screen: At this time, the client does not indicate any symptoms associated with coronavirus-19. Ebola Screen: No symptoms or risks identified at this time. Initial Sepsis Screen: Does the patient meet any 2 criteria? No. Patient's initial sepsis screen is negative. Does the patient have a suspected source of infection? No. Patient's initial sepsis screen is negative. Risk Assessment: Do you want to hurt yourself or someone else? Patient reports no desire to harm self or others. Onset of symptoms was January 02, 2023. 14:36 Method Of Arrival: EMS: [facility] ld1 14:36 Acuity: DEWAYNE 3 ld1 Triage Assessment: 14:38 General: Appears in no apparent distress. uncomfortable, Behavior is calm, cooperative. ld1 Pain: Complains of pain in left hip Pain does not radiate. Pain currently is 9 out of 10 on a pain scale. EENT: No signs and/or symptoms were reported regarding the EENT system. Neuro: Level of Consciousness is awake, alert, obeys commands, Oriented to person, place, time, situation. Cardiovascular: Capillary refill < 3 seconds Patient's skin is warm and dry. Respiratory: Airway is patent Respiratory effort is even, unlabored. GI: Abdomen is round non-distended. : No signs and/or symptoms were reported regarding the genitourinary system. Derm: No signs and/or symptoms reported regarding the dermatologic system. Musculoskeletal: Range of motion: limited in left hip. Historical: - Allergies: 14:38 No Known Allergies; ld1 - PMHx: 14:38 Bipolar disorder; Diabetes - NIDDM; Hypertension; ld1 - Immunization history:: Adult Immunizations up to date. - Social history:: Smoking status: Patient denies any tobacco usage or history of. Screenin:40 [facility] ED Fall Risk Assessment (Adult) History of falling in the last 3 months, ld1 including since admission No falls in past 3 months (0 pts). Abuse screen: Denies threats or abuse. Denies injuries from another. Nutritional screening: No deficits noted. Tuberculosis screening: No symptoms or risk factors identified. Assessment: 14:40 Reassessment: See triage assessment. ld1 14:45 General: Appears in no apparent distress. uncomfortable, Behavior is calm, cooperative, eh3 appropriate for age. Pain: Complains of pain in left hip and left leg. Neuro: Level of Consciousness is awake, alert, obeys commands, Oriented to person, place, time, situation. Cardiovascular: Capillary refill < 3 seconds Patient's skin is warm and dry. Respiratory: Airway is patent Respiratory effort is even, unlabored, Respiratory pattern is regular, symmetrical. GI: Abdomen is round non-distended. Derm: Skin is pink, warm \T\ dry. Musculoskeletal: Circulation, motion, and sensation intact. Range of motion: limited in left hip. 16:00 Reassessment: Patient appears in no apparent distress at this time. Patient and/or eh3 family updated on plan of care and expected duration. Pain level reassessed. Patient is alert, oriented x 3, equal unlabored respirations, skin warm/dry/pink. 17:00 Reassessment: Patient appears in no apparent distress at this time. Patient and/or eh3 family updated on plan of care and expected duration. Pain level reassessed. Patient is alert, oriented x 3, equal unlabored respirations, skin warm/dry/pink. 17:50 Reassessment: Nurse to nurse report received by MARIA GUADALUPE Peter at [facility]. 3 Vital Signs: 14:36 BP 166 / 88; Pulse 82; Resp 18; Temp 98.1(TE); Pulse Ox 98% on R/A; Pain 9/10; ld1 14:36 Weight 104.33 kg; Height 5 ft. 6 in. ; ld1 16:00 BP 123 / 59; Pulse 70; Resp 16; Pulse Ox 99% on R/A; eh3 16:30 BP 119 / 62; Pulse 76; Resp 16; Pulse Ox 100% on R/A; eh3 17:00 BP 102 / 57; Pulse 89; Resp 18; Pulse Ox 99% ; eh3 17:30 BP 110 / 68; Pulse 87; Resp 16; Pulse Ox 95% on R/A; eh3 18:30 BP 103 / 61; Pulse 87; Resp 16; Pulse Ox 96% on R/A; eh3 14:36 Body Mass Index 37.12 (104.33 kg, 167.64 cm) ld1 14:36 Pain Scale: Adult ld1 ED Course: 14:28 Patient arrived in ED. ms3 14:28 Ronald Bryson DO is Attending Physician. ms3 14:37 Lucero Bennett RN is Primary Nurse. eh3 14:38 Triage completed. ld1 14:38 Arm band placed on right wrist. ld1 14:40 Patient has correct armband on for positive identification. Placed in gown. Bed in low ld1 position. Call light in reach. Side rails up X2. gambling monitor on. Pulse ox on. NIBP on. Door closed. Noise minimized. Warm blanket given. 14:40 No provider procedures requiring assistance completed. ld1 14:45 Provided Education on: use of call gomez. eh3 14:56 Hip Left 2 View XRAY In Process Unspecified. EDMS 15:00 CT Head Brain wo Cont In Process Unspecified. EDMS 16:14 Inserted saline lock: 22 gauge in right upper arm, using aseptic technique. ld1 16:14 Missed attempt(s): 20 gauge in left antecubital area. ld1 16:35 spoke with ramírez at the [facility] transfer center. bc6 17:19 transfer acceptance. bc6 17:59 spoke with pascale from [facility] ambulance to send a truck for transfer. bc6 18:32 Patient transferred, IV remains in place. eh3 Administered Medications: 16:10 Drug: morphine IVP or IV 4 mg IVP once over 4 mins Route: IVP; Infused Over: 4 mins; 3 Site: right upper arm; 16:30 Follow up: Response: No adverse reaction; Pain is decreased eh3 16:10 Drug: Ondansetron IVP 4 mg IVP once; over 2 minutes Route: IVP; Site: right upper arm; eh3 16:30 Follow up: Response: No adverse reaction 3 16:56 Drug: HYDROmorphone IVP 0.5 mg IVP once Route: IVP; Site: right upper arm; 3 17:20 Follow up: Response: No adverse reaction; Pain is decreased; RASS: Alert and Calm (0) 3 18:25 Drug: HYDROmorphone IVP 0.5 mg IVP once Route: IVP; Site: right upper arm; 3 18:30 Follow up: Response: No adverse reaction; Medication administered at discharge.; RASS: 3 Alert and Calm (0) Medication: 14:40 VIS not applicable for this client. ld1 Outcome: 16:08 ER care complete, transfer ordered by . ms3 18:31 Transferred by ground EMS [facility]. to other acute care facility: [address] Transfer form completed. 18:31 Condition: stable 18:31 Instructed on the need for transfer, 18:32 [facility] Signatures: Dispatcher [employer] EDMS Ronald Bryson DO DO ms3 Arianna Bryson RN RN 1 Lucero Bennett RN RN 3 Loreta Abrams 6 Corrections: (The following items were deleted from the chart) 17:39 17:15 BP 102 / 57; Pulse 89bpm; Resp 18bpm; Pulse Ox 99%; 3 3
--- NOTE | 2023-01-02 16:08 | EDPHYS ---
Physician Documentation [facility] Name: Valerio Haney Sr Age: 62 yrs Sex: Male : 1960 Arrival Date: 01/02/2023 Time: 14:25 Bed 13 Private MD: ED Physician Ronald Bryson HPI: 01/02 14:31 This 62 yrs old Male presents to ER via Unassigned with complaints of Fall. ms3 14:31 62-year-old male presents via clued EMS status post fall 30 minutes prior to EMS being ms3 called. EMS states patient was walking out of his apartment when he tripped and fell. Patient is complaining of 9/10 left hip pain. Patient does endorse striking the back of his head. Patient denies any alleviating or inciting. Historical: - Allergies: 14:38 No Known Allergies; ld1 - PMHx: 14:38 Bipolar disorder; Diabetes - NIDDM; Hypertension; ld1 - Immunization history:: Adult Immunizations up to date. - Social history:: Smoking status: Patient denies any tobacco usage or history of. ROS: 14:31 Constitutional: Negative for fever, and chills. Neck: Negative for injury, pain, and ms3 swelling, Cardiovascular: Negative for chest pain, and palpitations. Respiratory: Negative for shortness of breath, cough, wheezing, and pleuritic chest pain, Abdomen/GI: Negative for abdominal pain, nausea, vomiting, diarrhea, and constipation, 14:31 MS/extremity: Positive for pain, of the Left hip, 14:31 All other systems are negative, Exam: 14:31 Constitutional: This is a well developed, well nourished patient who is awake, alert, ms3 and in no acute distress. Head/Face: Normocephalic, atraumatic. Chest/axilla: Normal chest wall appearance and motion. Nontender with no deformity. Cardiovascular: Regular rate and rhythm with a normal S1 and S2. No gallops, murmurs, or rubs. Normal PMI, no JVD. No pulse deficits. Respiratory: Lungs have equal breath sounds bilaterally, clear to auscultation and percussion. No rales, rhonchi or wheezes noted. No increased work of breathing, no retractions or nasal flaring. Abdomen/GI: Soft, non-tender, with normal bowel sounds. No distension or tympany. No guarding or rebound. No evidence of tenderness throughout. Skin: Warm, dry with normal turgor. Normal color with no rashes, no lesions, and no evidence of cellulitis. 14:31 Musculoskeletal/extremity: Extremities: noted in the Left hip: pain, Left leg shortened and externally rotated, Vital Signs: 14:36 BP 166 / 88; Pulse 82; Resp 18; Temp 98.1(TE); Pulse Ox 98% on R/A; Pain 9/10; ld1 14:36 Weight 104.33 kg; Height 5 ft. 6 in. ; ld1 16:00 BP 123 / 59; Pulse 70; Resp 16; Pulse Ox 99% on R/A; eh3 16:30 BP 119 / 62; Pulse 76; Resp 16; Pulse Ox 100% on R/A; eh3 17:00 BP 102 / 57; Pulse 89; Resp 18; Pulse Ox 99% ; eh3 17:30 BP 110 / 68; Pulse 87; Resp 16; Pulse Ox 95% on R/A; eh3 18:30 BP 103 / 61; Pulse 87; Resp 16; Pulse Ox 96% on R/A; eh3 14:36 Body Mass Index 37.12 (104.33 kg, 167.64 cm) ld1 14:36 Pain Scale: Adult ld1 MDM: 14:28 Patient medically screened. ms3 14:31 Differential diagnosis: hip fracture, intertrochanteric fracture, femoral neck fracture.ms3 16:08 Data reviewed: vital signs, nurses notes, lab test result(s), radiologic studies, and ms3 as a result, I will transfer to [facility] secondary to [facility]. Consideration of Admission/Observation Escalation of care including admission/observation considered. patient transfered. Management of patient was discussed with the following: Hospitalist: Dr Castro. Lever Tender: Dr Hauser. Independent interpretation of the following test(s) in the Emergency Department X-Ray: My interpretation is Left hip x-ray reviewed by me shows intertrochanteric fracture. Counseling: I had a detailed discussion with the patient and/or guardian regarding the historical points, exam findings, and any diagnostic results supporting the discharge/admit diagnosis, lab results, radiology results, the need to transfer to another facility, [facility] at capacity. ED course: Discussed need for transfer due to vaginal bleeding and capacity with patient. Patient understands and agrees with plan all questions were answered. . 01/02 14:29 Order name: CBC with Diff; Complete Time: 16:53 ms3 01/02 14:29 Order name: BMP; Complete Time: 16:53 ms3 01/02 14:29 Order name: CK; Complete Time: 16:53 ms3 01/02 14:29 Order name: CT Head Brain wo Cont; Complete Time: 16:01 ms3 01/02 14:44 Order name: Hip Left 2 View XRAY; Complete Time: 16:53 iw Administered Medications: 16:10 Drug: morphine IVP or IV 4 mg IVP once over 4 mins Route: IVP; Infused Over: 4 mins; 3 Site: right upper arm; 16:30 Follow up: Response: No adverse reaction; Pain is decreased 3 16:10 Drug: Ondansetron IVP 4 mg IVP once; over 2 minutes Route: IVP; Site: right upper arm; 3 16:30 Follow up: Response: No adverse reaction 3 16:56 Drug: HYDROmorphone IVP 0.5 mg IVP once Route: IVP; Site: right upper arm; eh3 17:20 Follow up: Response: No adverse reaction; Pain is decreased; RASS: Alert and Calm (0) eh3 18:25 Drug: HYDROmorphone IVP 0.5 mg IVP once Route: IVP; Site: right upper arm; eh3 18:30 Follow up: Response: No adverse reaction; Medication administered at discharge.; RASS: eh3 Alert and Calm (0) Disposition Summary: 01/02/23 16:08 Transfer Ordered Notes: Transfer Location: Other Acute Care Facility ms3 Reason: Higher level of care ms3 Condition: Stable ms3 Problem: new ms3 Symptoms: are unchanged ms3 Accepting Physician: Dr Anival Castro(01/02/23 18:32) 3 Diagnosis - Intertrochanteric fracture of femur ms3 - Fall on same level, unspecified ms3 Forms: - Medication Reconciliation Form ms3 - SBAR form ms3 Signatures: Dispatcher [employer] EDMS Ronald Bryson, DO ms3 Arianna Bryson RN RN ld1 Lucero Bennett RN RN eh3 Corrections: (The following items were deleted from the chart) 14:42 14:30 Hip Right 2 View+RAD.RAD.BRZ ordered. EDMS EDMS 14:47 14:30 Hip Right 2 View+RAD.RAD.BRZ ordered. EDMS EDMS 18:32 16:08 Dr Anival Castro ms3 eh3
--- NOTE | 2023-01-02 16:18 | RAD REPORT ---
EXAM DESCRIPTION: RAD - Hip Left 2 View - 01/02/2023 2:55 pm CLINICAL HISTORY: DEFORMITY COMPARISON: Hip Left 2 View dated 08/22/2019 TECHNIQUE: Left hip, AP and frogleg views of the left hip. FINDINGS: Comminuted left intertrochanteric fracture. In particular, is displaced fragment at the ba se of the lesser trochanter is displaced medially. No dislocation. Moderate hip joint degenerative ch anges. Adjacent soft tissue swelling. IMPRESSION: Comminuted left intertrochanteric fracture.
[2023-01-02 16:37] LABS: Absolute Lymphocytes (CBC) 1.5 K/uL (0.7-4.9); Hematocrit 37.7 % (39.6-49.0); Lymphocytes % 10.1 % (15.3-44.8); MCV 88.2 fL (80-100); MPV 7.5 fL (7.6-11.3); Platelets 159 thou/uL (152-406); RBC Red Blood Cell Count 4.27 M/uL (4.33-5.43)
[2023-01-02 16:40] LABS: Potassium 5.6 mEq/L (3.5-5.1)
[2023-01-02] MEDS ORDERED: HYDROMORPHONE HCL 0.5 MG/0.5 ML INJ ONE (17:10)
[2023-01-02 18:57] VITALS: TEMP 98.1
[2023-01-02 19:05] VITALS: BP 103/61; O2SAT 96
== END 2023-01-02 18:32 ==
LOC: ER 14:25
DX: S72.142A Displaced intertrochanteric fracture of left femur, initial encounter for closed fracture (principal); W18.30XA Fall on same level, unspecified, initial encounter; I10 Essential (primary) hypertension
CPT/HCPCS: 85025; 80048; 36415; 82550; 70450; 73502; 96375; 96374; 99285; J1170